=== PATIENT | male | born 1975 | race Caucasian/White ===

== ENCOUNTER 2017-08-07 22:33 | Inpatient (IN) | payer OTHER ==
[~2017-08-07] VITALS: Ht 188 cm; Wt 104.6 kg
[2017-08-07] MEDS ORDERED: ONDANSETRON HCL 4 MG/2 ML VIAL ONE (22:40)
[2017-08-07] MEDS ORDERED: MORPHINE SULFATE 8 MG/ML INJ ONE (22:40)
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
[2017-08-07] MEDS ORDERED: IOHEXOL 350 MG/ML 10 ML VIAL (for RAD DIAG) IVCONTRAST ONE (22:58)
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
[2017-08-07 23:02] LABS: I-STAT POTASSIUM 4.1 MMOL/L (3.5-4.9)
[2017-08-07 23:03] LABS: AUTOMATED NEUTROPHIL # 5.1 TH/MM3 (1.8-7.7); BASOPHIL % 0.2 % (0.0-2.0); EOSINOPHIL # 0.1 TH/MM3 (0-0.4); EOSINOPHIL % 0.8 % (0.0-4.0); HEMATOCRIT 43.9 % (39.0-51.0); LYMPH % 47.4 % (9.0-44.0); LYMPHOCYTE # 5.4 TH/MM3 (1.0-4.8); MEAN CELL VOLUME 91.4 FL (80.0-100.0); MEAN CORPUSCULAR HEMOGLOBIN 31.5 PG (27.0-34.0); MEAN CORPUSCULAR HGB CONC 34.5 % (32.0-36.0); MONO % 6.6 % (0.0-8.0); PLATELET COUNT 225 TH/MM3 (150-450); RED BLOOD COUNT 4.81 MIL/MM3 (4.50-5.90); RED CELL DISTRIBUTION WIDTH 13.9 % (11.6-17.2); WHITE BLOOD COUNT 11.4 TH/MM3 (4.0-11.0)
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
[2017-08-07 23:08] LABS: HEMO FLAGS AUTO DIFF
[2017-08-07 23:16] LABS: APTT (PATIENT) 22.8 SEC (24.3-30.1); INTERNATIONAL NORMALIZED RATIO 0.9 RATIO; PROTHROMBIN TIME - PATIENT 10.4 SEC (9.8-11.6)
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
[2017-08-07 23:30] VITALS: BP 120/72; PULSE 99; RESP 26; TEMP 97.7; O2SAT 97
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
[2017-08-07 23:43] LABS: BASOPHILS 1 % (0-2); EOSINOPHILS 1 % (0-4); METAMYELOCYTES 1 % (0-1); POLYS (SEG NEUTROPHILS) 52 % (16-70); WBC DIFF SAMPLE 100
[2017-08-07 23:44] LABS: PLATELET ESTIMATE SMEAR NORMAL (NORMAL); PLATELET MORPHOLOGY NORMAL (NORMAL); SCAN/DIFF FINAL DIFF MANUAL
[2017-08-07] MEDS ORDERED: SODIUM CHLORIDE 0.9% FLUSH 10 ML FLUSH IV FLUSH PRN (23:45)
[2017-08-07] MEDS ORDERED: Post-op Orders (for Pharmacy) MISC XX ONE (23:45)
[2017-08-07] MEDS ORDERED: NALOXONE HCL 0.4 MG/ML AMP IV PUSH PRN (23:45)
[2017-08-07] MEDS: SODIUM CHLOR 0.9% 1000 ML INJ 1,000 ML IV SCH (23:55)
[2017-08-07] MEDS: HYDROmorphone HCL PF 0.5 MG/0.5 ML SYRINGE IV PRN (23:58)
[2017-08-08] VITALS (11 sets, daily range): BP systolic 106–128; BP diastolic 60–73; PULSE 95–122; RESP 13–27; TEMP 97–100; O2SAT 94–100
[2017-08-08 00:08] LABS: HEMATOCRIT 40.6 % (39.0-51.0); REVIEW FLAG FINAL
[2017-08-08] MEDS: ONDANSETRON HCL 4 MG/2 ML VIAL IV PUSH PRN ×3 (01:42→18:09)
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
[2017-08-08 03:33] LABS: AUTOMATED NEUTROPHIL # 20.9 TH/MM3 (1.8-7.7); BASOPHIL % 0.1 % (0.0-2.0); HEMATOCRIT 45.8 % (39.0-51.0); LYMPHOCYTE # 1.5 TH/MM3 (1.0-4.8); MEAN CELL VOLUME 91.2 FL (80.0-100.0); MEAN CORPUSCULAR HEMOGLOBIN 30.6 PG (27.0-34.0); MEAN CORPUSCULAR HGB CONC 33.5 % (32.0-36.0); MONO % 12.6 % (0.0-8.0); NEUT % 81.3 % (16.0-70.0); PLATELET COUNT 211 TH/MM3 (150-450); RED BLOOD COUNT 5.01 MIL/MM3 (4.50-5.90); RED CELL DISTRIBUTION WIDTH 14.3 % (11.6-17.2); WHITE BLOOD COUNT 25.7 TH/MM3 (4.0-11.0)
[2017-08-08 04:06] LABS: BICARBONATE 21.7 MEQ/L (21.0-32.0); POTASSIUM 4.7 MEQ/L (3.5-5.1)
[2017-08-08 04:08] LABS: INDIRECT BILIRUBIN 0.2 MG/DL (0.0-0.8); TOTAL BILIRUBIN ADULT 0.3 MG/DL (0.2-1.0)
[2017-08-08 04:28] LABS: HEMO FLAGS AUTO DIFF
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
[2017-08-08 05:26] LABS: BANDS 6 % (0-6); NEUTROPHIL # MANUAL DIFF 21.8 TH/MM3 (1.8-7.7); POLYS (SEG NEUTROPHILS) 79 % (16-70); WBC DIFF SAMPLE 100
[2017-08-08 05:27] LABS: PLATELET ESTIMATE SMEAR NORMAL (NORMAL); PLATELET MORPHOLOGY NORMAL (NORMAL); SCAN/DIFF FINAL DIFF MANUAL; TEARDROP RBCS 1+ (NORMAL)
[2017-08-08] MEDS: HYDROmorphone HCL PF 0.5 MG/0.5 ML SYRINGE IV PRN ×3 (05:43→15:33)
--- NOTE | 2017-08-08 07:56 | RADRPT ---
EXAM DATE/TIME: 08/08/2017 08:20 [facility] COMPARISON: CHEST SINGLE AP, August 07, 2017, 22:30. INDICATIONS : Evaluate for pneumothorax MEDICAL HISTORY : None. SURGICAL HISTORY : None. ENCOUNTER: Subsequent ACUITY: 2 days PAIN SCORE: Non-responsive. LOCATION: chest FINDINGS: The heart size is normal. There is increased density in the right perihilar region and at the medial left base. There is elevation of the right hemidiaphragm. A pneumothorax is not seen. CONCLUSION: Right perihilar and left medial base consolidation or atelectasis. Ty Kidd MD on August 08, 2017 at 7:53 Board Certified Radiologist. This report was verified electronically.
[2017-08-08] MEDS: SODIUM CHLORIDE 0.9% FLUSH 10 ML FLUSH IV FLUSH SCH ×2 (08:20→20:54)
[2017-08-08] MEDS: LIDOCAINE HCL 5% PATCH T-DERMAL SCH (08:26)
[2017-08-08] MEDS ORDERED: FAMOTIDINE 20 MG/2 ML VIAL IV PUSH SCH (09:00)
[2017-08-08] MEDS ORDERED: LACTULOSE SYRUP 20 GM/30 ML CUP PO PRN (10:00)
[2017-08-08] MEDS ORDERED: LIDOCAINE HCL 1% 50 ML VIAL INFIL ONE (10:00)
[2017-08-08] MEDS: oxyCODONE/ACETAMINOPHEN 10 MG/325 MG TAB PO PRN ×3 (12:35→22:05)
[2017-08-08 12:42] LABS: HEMATOCRIT 44.9 % (39.0-51.0); REVIEW FLAG FINAL
--- NOTE | 2017-08-08 12:47 | PD.PROCEDR ---
Procedure Note Procedure 08/08/2017 @ 1100 The patient suffered a laceration that required repair. It is approx 8 cm in length to his RIGHT scalp. After evaluating the area, the wound was copiously irrigated with normal saline. The area of the laceration was prepped with Betadine and sterilely draped. The laceration was infiltrated with 1% Lidocaine. The wound was explored for foreign body, tendon injury, or neurovascular injury. The wound was then cleansed and irrigated a second time. Trying to maintain a sterile field and using a sterile staple gun, 6 braxton were placed to approximate the wound edges. The patient tolerated the procedure well and no complications occurred. A sterile 4x4 dressing was applied by RN. Recommendation: Daily wound checks and staple removal in 7-10 days. LACERATION LOCATION: Right scalp LENGTH: approx 8 cm NUMBER OF BRAXTON: 6 Karol Corado Aug 08, 2017 12:47
--- NOTE | 2017-08-08 13:43 | HHI.CCPN ---
Subjective Brief History Contusion and laceration of the right kidney upper pole with retroperitoneal bleeding but no active bleeding at this time. Right lobe liver contusion with some perihepatic blood, and serial rib fractures with a very tiny pneumothorax which is sort of in the folds of the pleura as the hilum of the bronchi comes out of the mediastinum. The patient will be now placed in the ICU. Majority of the patient's will not require any further intervention and the the bleeding and are at peritoneal space will be self-contained while minority of patients may need some sort of endovascular embolization our intervention 24 Hour Review/Hospital Course Patient has been stable since the arrival Bruising over the right orbital rim is decreased Neurologic the patient is fully intact Placed several braxton and the laceration of the posterior scalp Bilateral breath sounds and no increase in the mediastinal or pleural air so for all practical purposes this is sealed of Abdomen is soft active bowel sounds Will start patient on diet Stop serial H&H Objective Vital Signs Date Time Temp Pulse Resp B/P (MAP) Pulse Ox O2 Delivery O2 Flow Rate FiO2 08/08/17 06:00 110 08/08/17 03:47 97.9 24 118/66 (83) 100 08/08/17 00:00 Non-Rebreather 7.00 Intake and Output 08/08/17 08/08/17 08/09/17 08:00 16:00 00:00 Output Total 1500 ml Balance -1500 ml Result Diagram: 08/08/17 1203 08/08/17 0322 Imaging Last 24 hours Impressions Chest X-Ray 08/08/17 0000 Signed Impressions: Service Date/Time: Tuesday, August 08, 2017 08:20 - CONCLUSION: Right perihilar and left medial base consolidation or atelectasis. Ty Kidd MD Thoracic Spine CT 08/07/172245 Signed Impressions: Service Date/Time: Monday, August 07, 2017 22:58 - CONCLUSION: No acute fracture or malalignment. Louis Quan MD Pelvis X-Ray 08/07/172245 Signed Impressions: Service Date/Time: Monday, August 07, 2017 22:30 - CONCLUSION: Negative trauma study. Louis Quan MD Maxillofacial CT 08/07/172245 Signed Impressions: Service Date/Time: Monday, August 07, 2017 22:53 - CONCLUSION: Comminuted fracture of the nasal bone. Louis Quan MD Lumbar Spine CT 08/07/172245 Signed Impressions: Service Date/Time: Monday, August 07, 2017 22:58 - CONCLUSION: No acute fracture or malalignment. Louis Quan MD Chest X-Ray 08/07/172245 Signed Impressions: Service Date/Time: Monday, August 07, 2017 22:30 - CONCLUSION: Negative trauma study. Louis Quan MD Chest CT 08/07/172245 Signed Impressions: Service Date/Time: Monday, August 07, 2017 22:58 - CONCLUSION: 1. Linear gas collection posterior to the heart most consistent with a pneumothorax. 2. Evidence of pneumomediastinum. 3. Posttraumatic pneumatocele in the right lower lobe as well as apparent atelectasis or lung contusion. 4. Multiple right rib fractures. 5. Please see abdomen CT about further information on right renal injury. Louis Quan MD Cervical Spine CT 08/07/172245 Signed Impressions: Service Date/Time: Monday, August 07, 2017 22:53 - CONCLUSION: Negative trauma CT. Louis Quan MD Abdomen/Pelvis CT 08/07/172245 Signed Impressions: Service Date/Time: Monday, August 07, 2017 22:58 - CONCLUSION: 1. Acute injury to the right kidney with areas of non-enhancement involving the upper pole and moderate surrounding hematoma with attenuation of the renal vein. 2. Subtle low attenuation areas involving the inferior margin of the liver which could represent contusion. There is a small amount of ascites. 3. Mild hemorrhage in the right upper retroperitoneum. 4. Fractures the right posterior seventh through 11th ribs with tiny apparent traumatic pneumatocele in the right lower lobe an abnormal linear gas collection posterior to the heart. Please see chest CT for further details. Louis Quan MD Exam [employer] Neurologically fully intact awake alert and oriented Hemodynamic/Cardiac Hemodynamically stable Pulmonary/Respiratory Bilateral breath sounds patient taking good breaths despite repeat fractures Abdomen/GI Nutrition Abdomen soft active bowel sounds Renal/I&O Preserve renal function Hematologic Hemodynamically patient is stable and hematologically stable Hemoglobin remains stable and there is no further bleeding from the retroperitoneum or the upper pole of the right kidney Assessment and Plan Attestation Critical care 40 minutes Shan Garza MD Aug 08, 2017 13:43
[2017-08-08] MEDS: SODIUM CHLOR 0.9% 1000 ML INJ 1,000 ML IV SCH ×2 (13:48→19:44)
[2017-08-08] MEDS: METHOCARBAMOL 500 MG TAB PO SCH ×2 (13:48→20:50)
[2017-08-08] MEDS: LACTULOSE SYRUP 20 GM/30 ML CUP PO SCH (15:30)
[2017-08-08] MEDS: MAGNESIUM HYDROXIDE SUSP 30 ML CUP PO SCH (20:49)
[2017-08-08] MEDS: DOCUSATE SODIUM 50 MG/SENNA 8.6 MG TAB PO SCH (20:49)
[2017-08-08] MEDS: FAMOTIDINE 20 MG TAB PO SCH (20:49)
[2017-08-08] MEDS: REMOVE OLD PATCH-LIDOCAINE T-DERMAL SCH (21:00)
[2017-08-09] VITALS (14 sets, daily range): BP systolic 119–139; BP diastolic 60–81; PULSE 111–139; RESP 18–32; TEMP 96.7–99.6; O2SAT 88–99
[2017-08-09] MEDS: HYDROmorphone HCL PF 0.5 MG/0.5 ML SYRINGE IV PRN ×5 (03:20→20:16)
[2017-08-09] MEDS: METHOCARBAMOL 500 MG TAB PO SCH ×4 (05:25→20:15)
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
[2017-08-09] MEDS: SODIUM CHLOR 0.9% 1000 ML INJ 1,000 ML IV SCH ×2 (05:44→15:44)
--- NOTE | 2017-08-09 06:11 | RADRPT ---
EXAM DATE/TIME: 08/09/2017 05:53 [facility] COMPARISON: CHEST SINGLE AP, August 08, 2017, 8:20. INDICATIONS : Shortness of breath MEDICAL HISTORY : Ruptured Kidney SURGICAL HISTORY : None. ENCOUNTER: Initial ACUITY: 1 day PAIN SCORE: 8/10 LOCATION: Bilateral chest FINDINGS: A single view of the chest demonstrates worsening pleural-parenchymal density in the right. Left basi lar patchy densities. Multiple right-sided rib fractures. The cardiomediastinal contours are unremar kable. CONCLUSION: 1. Worsening bibasilar disease and pleural-parenchymal density right lower lung. Haseeb White MD on August 09, 2017 at 6:07 Board Certified Radiologist. This report was verified electronically.
[2017-08-09 07:04] LABS: AUTOMATED NEUTROPHIL # 13.2 TH/MM3 (1.8-7.7); BASOPHIL % 0.2 % (0.0-2.0); HEMATOCRIT 38.1 % (39.0-51.0); HEMO FLAGS DIFF FINAL; LYMPH % 7.3 % (9.0-44.0); LYMPHOCYTE # 1.2 TH/MM3 (1.0-4.8); MEAN CELL VOLUME 90.8 FL (80.0-100.0); MEAN CORPUSCULAR HEMOGLOBIN 30.6 PG (27.0-34.0); MEAN CORPUSCULAR HGB CONC 33.7 % (32.0-36.0); MONO % 11.3 % (0.0-8.0); NEUT % 81.2 % (16.0-70.0); PLATELET COUNT 146 TH/MM3 (150-450); RED BLOOD COUNT 4.19 MIL/MM3 (4.50-5.90); RED CELL DISTRIBUTION WIDTH 14.3 % (11.6-17.2); WHITE BLOOD COUNT 16.3 TH/MM3 (4.0-11.0)
[2017-08-09 07:39] LABS: ALKALINE PHOSPHATASE 66 U/L (45-117); ALT (GPT) 563 U/L (12-78); ANION GAP 5 MEQ/L (5-15); AST (GOT) 421 U/L (15-37); BICARBONATE 26.9 MEQ/L (21.0-32.0); BLOOD UREA NITROGEN 24 MG/DL (7-18); CHLORIDE 106 MEQ/L (98-107); GLOMERULAR FILTRATION RATE 55 ML/MIN (>89); POTASSIUM 4.5 MEQ/L (3.5-5.1); SODIUM (NA) 138 MEQ/L (136-145); TOTAL BILIRUBIN ADULT 0.7 MG/DL (0.2-1.0)
[2017-08-09] MEDS ORDERED: HYDROmorphone HCL PF 0.5 MG/0.5 ML SYRINGE IV PRN (08:00)
[2017-08-09] MEDS: RESP: ALBUTEROL 2.5 MG/IPRATROPIUM 0.5 MG NEB (SCH) NEB ×4 (08:26→20:00)
[2017-08-09] MEDS: oxyCODONE/ACETAMINOPHEN 10 MG/325 MG TAB PO PRN ×2 (08:27→22:30)
[2017-08-09] MEDS: FAMOTIDINE 20 MG TAB PO SCH ×2 (08:27→20:16)
[2017-08-09] MEDS: DOCUSATE SODIUM 50 MG/SENNA 8.6 MG TAB PO SCH ×2 (08:27→20:16)
[2017-08-09] MEDS: LACTULOSE SYRUP 20 GM/30 ML CUP PO SCH (08:28)
[2017-08-09] MEDS: SODIUM CHLORIDE 0.9% FLUSH 10 ML FLUSH IV FLUSH SCH ×2 (08:28→20:17)
[2017-08-09] MEDS: LIDOCAINE HCL 5% PATCH T-DERMAL SCH (08:28)
[2017-08-09] MEDS ORDERED: RESP: ALBUTEROL 2.5 MG/IPRATROPIUM 0.5 MG NEB (PRN) NEB (09:00)
[2017-08-09] MEDS: GABAPENTIN 300 MG CAP PO SCH ×3 (10:36→20:15)
[2017-08-09] MEDS ORDERED: IOHEXOL 350 MG/ML 10 ML VIAL (for RAD DIAG) IVCONTRAST ONE (12:20)
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
--- NOTE | 2017-08-09 12:41 | RADRPT ---
EXAM DATE/TIME: 08/09/2017 12:14 [facility] COMPARISON: CT ABDOMEN & PELVIS W CONTRAST, August 07, 2017, 22:58. INDICATIONS : Follow up right kidney trauma. IV CONTRAST: 75 cc Omnipaque 350 (iohexol) IV ; Cumulative dose for multiple exams. ORAL CONTRAST: No oral contrast ingested. RADIATION DOSE: 16.92 CTDIvol (mGy) MEDICAL HISTORY : Hernia, hiatal. SURGICAL HISTORY : None. ENCOUNTER: Initial ACUITY: 1 day PAIN SCALE: 5/10 LOCATION: Right TECHNIQUE: Volumetric scanning of the abdomen and pelvis was performed. Using automated exposure control and ad justment of the mA and/or kV according to patient size, radiation dose was kept as low as reasonably achievable to obtain optimal diagnostic quality images. DICOM format image data is available electro nically for review and comparison. FINDINGS: The study is degraded by streak and motion artifact. LOWER LUNGS: There is a new small to moderate right pleural effusion with consolidation in the right lower lobe. T here is mild consolidation in the left medial lower lobe with small effusion. LIVER: The liver remains normal in size and shape. Visualization is suboptimal secondary to streak leonardo fact there is a persistent area of decreased attenuation involving the posterior inferior right lobe adjacent to the right kidney. There is no ductal dilatation. There is vicarious excretion of contrast in the gallbladder. SPLEEN: Normal size without lesion. PANCREAS: Within normal limits. KIDNEYS: The left kidney remains unremarkable. The right kidney remains abnormal non-enhancement of portions o f the medial upper pole. The surrounding hematoma has decreased in size. There is no high density ext ravasation identified. ADRENAL GLANDS: Within normal limits. VASCULAR: There is no aortic aneurysm. BOWEL/MESENTERY: The stomach, small bowel, and colon demonstrate no acute abnormality. There is no free intraperitone al air or fluid. ABDOMINAL WALL: Within normal limits. RETROPERITONEUM: There is no lymphadenopathy. BLADDER: No wall thickening or mass. Interval placement of Ashley catheter. REPRODUCTIVE: Within normal limits. INGUINAL: There is no lymphadenopathy or hernia. MUSCULOSKELETAL: Multiple right rib fractures are again identified. CONCLUSION: 1. Suboptimal study secondary to motion and streak artifact. 2. The right kidney remains abnormal in appearance with no enhancement of portions of the upper pole again noted. The surrounding hematoma has decreased in size. 3. Subtle ill-defined low-attenuation area again noted involving the posterior inferior right lobe of the liver adjacent to the kidney. This remains most characteristic of an area of contusion. 4. New bilateral pleural effusions and consolidation in the lower lobes right greater than left. 5. Multiple right rib fractures again noted. Louis Quan MD on August 09, 2017 at 12:33 Board Certified Radiologist. This report was verified electronically.
[2017-08-09] MEDS ORDERED: LIDOCAINE HCL 1% 20 ML VIAL INFIL ONE (13:00)
--- NOTE | 2017-08-09 15:54 | RADRPT ---
EXAM DATE/TIME: 08/09/2017 15:58 [facility] COMPARISON: CHEST SINGLE AP, August 09, 2017, 5:53. INDICATIONS : Chest tube placement, right. MEDICAL HISTORY : Hiatal hernia. SURGICAL HISTORY : None. ENCOUNTER: Initial ACUITY: 1 day PAIN SCORE: Non-responsive. LOCATION: Right chest FINDINGS: A single portable frontal view of the chest shows motion artifact. There has been interval placement of a right thoracostomy tube. There has been resolution of the right-sided pleural effusion. Consolid ation remains within the left lung base. No pneumothoraces observed. The heart is at the upper limits of normal in terms of size. Right posterior inferior fractures. CONCLUSION: 1. Right-sided chest tube placement with resolution of the right effusion. Tylor Weeks Jr., MD on August 09, 2017 at 15:51 Board Certified Radiologist. This report was verified electronically.
[2017-08-09] MEDS ORDERED: KETOROLAC TROMETHAMINE 60 MG/2 ML (IM) VIAL IM SCH (18:00)
[2017-08-09] MEDS: KETOROLAC TROMETHAMINE 30 MG/ML (IVP) VIAL IV PUSH SCH (18:19)
--- NOTE | 2017-08-09 18:35 | HHI.PR ---
Subjective Subjective Notes Increase SOB with mild respiratory distress today- [facility] Stat CT chest showed moderate sized RIGHT hemothorax- Transferred to [facility] S/P RIGHT CT placement with 700mL retained blood removed Respiratory status improved Objective Vitals/I&O Vital Signs Date Time Temp Pulse Resp B/P (MAP) Pulse Ox O2 Delivery O2 Flow Rate FiO2 08/09/17 18:00 117 08/09/17 15:47 99.3 32 139/72 (94) 97 08/09/17 12:41 Non-Rebreather 15.00 Labs Laboratory Tests Test 08/09/17 06:20 White Blood Count 16.3 Red Blood Count 4.19 Hemoglobin 12.8 Hematocrit 38.1 Mean Corpuscular Volume 90.8 Mean Corpuscular Hemoglobin 30.6 Mean Corpuscular Hemoglobin Concent 33.7 Red Cell Distribution Width 14.3 Platelet Count 146 Mean Platelet Volume 8.4 Neutrophils (%) (Auto) 81.2 Lymphocytes (%) (Auto) 7.3 Monocytes (%) (Auto) 11.3 Eosinophils (%) (Auto) 0.0 Basophils (%) (Auto) 0.2 Neutrophils # (Auto) 13.2 Lymphocytes # (Auto) 1.2 Monocytes # (Auto) 1.8 Eosinophils # (Auto) 0.0 Basophils # (Auto) 0.0 CBC Comment DIFF FINAL Differential Comment Blood Urea Nitrogen 24 Creatinine 1.42 Random Glucose 151 Total Protein 5.8 Albumin 2.6 Calcium Level 8.0 Alkaline Phosphatase 66 Aspartate Amino Transf (AST/SGOT) 421 Alanine Aminotransferase (ALT/SGPT) 563 Total Bilirubin 0.7 Sodium Level 138 Potassium Level 4.5 Chloride Level 106 Carbon Dioxide Level 26.9 Anion Gap 5 Estimat Glomerular Filtration Rate 55 Narrative Exam GENERAL: 41 year old adult male lying in bed. SKIN: Warm and dry. Facial abrasions noted. HEAD: Normocephalic. EYES: Pupils equal and round. No scleral icterus. No injection or drainage. ENT: No nasal bleeding or discharge. Mucous membranes pink and moist. NECK: Trachea midline. No JVD. CARDIOVASCULAR: Sinus tachycardia. RESPIRATORY: No accessory muscle use. Clear and diminished to auscultation. RIGHT lateral CT in place secured to pleura vac on -20cm suction. No air leak. Serosanguineous drainage noted in collection chamber. GASTROINTESTINAL: Abdomen soft, tender to palpation in RUQ, nondistended. + BS MUSCULOSKELETAL: Extremities without cyanosis, or edema. MAEW, + perfused NEUROLOGICAL: Awake and alert. Normal speech. A/P Assessment and Plan INJURIES: Scalp lac (braxton) Nasal bone fx Pneumomediastinum RIGHT rib fx (7-11) w/ tiny PTX RIGHT lower lobe pneumatocele BILAT lung contusions RIGHT kidney fx w/ hemorrhage LIVER contusion 08/09: RIGHT CT placed for JACKIE (-700mL) Diet: Regular Pulm: IS, EZ-PAP with nebs, Acapella Pain: Percocet. Dilaudid IV. Robaxin. Lidoderm patch, Toradol IV Activity: OOB. PT ordered GI: Pepcid PO Bowel: Lamar-colace 2 tabs, MOM. Lactulose. LBM 0 DVT: SCD's. RIGHT rib fx w/small PTX, BILAT lung contusions, RIGHT JACKIE S/P RIGHT CT placed for JACKIE (-700mL) No PTX NRB. Wean O2 as tolerated RIGHT CT @ -20cm suction Daily CT dressing changes Pain control Pulmonary toileting ABG in AM CXR in AM RIGHT kidney fx w/ hemorrhage, LIVER contusion Supportive care Monitor H&H 08/09: CT abdomen- kidney hematoma smaller, liver contusion stable Pain control Bowel regimen Plan of care discussed with patient at bedside. Case management consulted to assist with discharge planning. Luis M Belle Aug 09, 2017 18:35
[2017-08-09] MEDS: MAGNESIUM HYDROXIDE SUSP 30 ML CUP PO SCH (20:17)
[2017-08-09] MEDS: REMOVE OLD PATCH-LIDOCAINE T-DERMAL SCH (21:00)
[2017-08-10] VITALS (15 sets, daily range): BP systolic 110–143; BP diastolic 56–75; PULSE 102–118; RESP 13–22; TEMP 97.8–100.6; O2SAT 94–100
[2017-08-10] MEDS: KETOROLAC TROMETHAMINE 30 MG/ML (IVP) VIAL IV PUSH SCH ×5 (00:24→23:39)
[2017-08-10] MEDS: RESP: ALBUTEROL 2.5 MG/IPRATROPIUM 0.5 MG NEB (SCH) NEB ×7 (00:31→23:44)
[2017-08-10] MEDS: SODIUM CHLOR 0.9% 1000 ML INJ 1,000 ML IV SCH ×3 (01:44→20:52)
[2017-08-10 05:17] LABS: BLOOD GAS BASE EXCESS 4.2 mmol/L (-2-2); BLOOD GAS CARBOXYHEMOGLOBIN 1.2 % (0-4); BLOOD GAS HCO3 29 mmol/L (22-26); BLOOD GAS METHEMOGLOBIN 0.9 % (0-2); BLOOD GAS O2 HGB SATURATION 98 % (90-100); BLOOD GAS OXYGEN CONTENT 15.7 Vol % (12.0-20.0); BLOOD GAS PCO2 46 mmHg (38-42); BLOOD GAS PO2 169 mmHg (61-120); BLOOD GAS TOTAL HGB 11.2 G/DL (12.0-16.0); CRITICAL VALUE NO; DRAW SITE RT RADIAL; FIO2 100 %; LITER FLOW 15 L/M; NUMBER OF ARTERIAL PUNCTURES 1; STAT NO; TEMP CORR TO 98.6; ULNAR PULSE PRESENT
[2017-08-10] MEDS: GABAPENTIN 300 MG CAP PO SCH ×3 (05:27→20:51)
[2017-08-10] MEDS: METHOCARBAMOL 500 MG TAB PO SCH (05:27)
[2017-08-10] MEDS: oxyCODONE/ACETAMINOPHEN 5 MG/325 MG TAB PO PRN ×2 (05:28→13:49)
--- NOTE | 2017-08-10 06:38 | RADRPT ---
EXAM DATE/TIME: 08/10/2017 06:07 [facility] COMPARISON: CHEST SINGLE AP, August 09, 2017, 15:58. INDICATIONS : Short of breath. MEDICAL HISTORY : Hiatal hernia. SURGICAL HISTORY : None. ENCOUNTER: Subsequent ACUITY: 4 - 6 days PAIN SCORE: Non-responsive. LOCATION: Bilateral chest FINDINGS: A single view of the chest demonstrates right-sided chest tube and small right apical pneumothorax. H eart enlarged. Minimal left retrocardiac density. The cardiomediastinal contours are unremarkable. Osseous structures are intact. CONCLUSION: 1. Right-sided chest tube and small right apical pneumothorax, not significantly changed. 2. Minimal left retrocardiac density likely atelectasis. Haseeb White MD on August 10, 2017 at 6:35 Board Certified Radiologist. This report was verified electronically.
[2017-08-10 07:22] LABS: AUTOMATED NEUTROPHIL # 9.8 TH/MM3 (1.8-7.7); BASOPHIL % 0.2 % (0.0-2.0); EOSINOPHIL # 0.1 TH/MM3 (0-0.4); EOSINOPHIL % 0.7 % (0.0-4.0); HEMO FLAGS DIFF FINAL; LYMPH % 8.1 % (9.0-44.0); MEAN CELL VOLUME 91.3 FL (80.0-100.0); MEAN CORPUSCULAR HEMOGLOBIN 31.1 PG (27.0-34.0); MONO % 10.1 % (0.0-8.0); NEUT % 80.9 % (16.0-70.0); PLATELET COUNT 131 TH/MM3 (150-450); WHITE BLOOD COUNT 12.2 TH/MM3 (4.0-11.0)
[2017-08-10 07:44] LABS: ANION GAP 6 MEQ/L (5-15); AST (GOT) 236 U/L (15-37); BICARBONATE 28.8 MEQ/L (21.0-32.0); BLOOD UREA NITROGEN 28 MG/DL (7-18); CHLORIDE 101 MEQ/L (98-107); GLOMERULAR FILTRATION RATE 52 ML/MIN (>89); POTASSIUM 4.6 MEQ/L (3.5-5.1); SODIUM (NA) 136 MEQ/L (136-145)
[2017-08-10 07:48] LABS: ALKALINE PHOSPHATASE 66 U/L (45-117); ALT (GPT) 365 U/L (12-78); TOTAL BILIRUBIN ADULT 0.7 MG/DL (0.2-1.0)
[2017-08-10] MEDS: LACTULOSE SYRUP 20 GM/30 ML CUP PO SCH ×2 (09:00→09:43)
[2017-08-10] MEDS: SODIUM CHLORIDE 0.9% FLUSH 10 ML FLUSH IV FLUSH SCH ×2 (09:00→21:44)
[2017-08-10] MEDS: DOCUSATE SODIUM 50 MG/SENNA 8.6 MG TAB PO SCH ×2 (09:43→20:51)
[2017-08-10] MEDS: LIDOCAINE HCL 5% PATCH T-DERMAL SCH (09:44)
[2017-08-10] MEDS: ENOXAPARIN SODIUM 40 MG/0.4 ML SYRINGE SQ SCH (10:39)
--- NOTE | 2017-08-10 10:45 | HHI.CCPN ---
Subjective Brief History Contusion and laceration of the right kidney upper pole with retroperitoneal bleeding but no active bleeding at this time. Right lobe liver contusion with some perihepatic blood, and serial rib fractures with a very tiny pneumothorax which is sort of in the folds of the pleura as the hilum of the bronchi comes out of the mediastinum. The patient will be now placed in the ICU. Majority of the patient's will not require any further intervention and the the bleeding and are at peritoneal space will be self-contained while minority of patients may need some sort of endovascular embolization our intervention 24 Hour Review/Hospital Course Patient has been stable since the arrival Bruising over the right orbital rim is decreased Neurologic the patient is fully intact Placed several braxton and the laceration of the posterior scalp Bilateral breath sounds and no increase in the mediastinal or pleural air so for all practical purposes this is sealed of Abdomen is soft active bowel sounds Will start patient on diet Stop serial H&H 08/10/17 Patient transferred yesterday back to the ICU because of the severe pain and inability of floor to take care of him Patient is awake alert and oriented Right hemothorax had increased over the few days the patient will see her in the hospital and therefore right chest tube was placed and about 700 cc old blood obtained This improved patient's pulmonary function is breathing much easier at this point Objective Vital Signs Date Time Temp Pulse Resp B/P (MAP) Pulse Ox O2 Delivery O2 Flow Rate FiO2 08/10/17 09:15 97 Nasal Cannula 3.00 08/10/17 06:00 110 08/10/17 04:00 100.3 14 117/56 (76) 08/09/17 19:00 100 Intake and Output 08/10/17 08/10/17 08/11/17 08:00 16:00 00:00 Intake Total 1160 ml Output Total 580 ml Balance 580 ml Result Diagram: 08/10/17 0640 08/10/17 0640 Other Results Laboratory Tests Test 08/10/17 05:00 Blood Gas Puncture Site RT RADIAL Blood Gas Patient Temperature 98.6 Blood Gas HCO3 29 mmol/L (22-26) Blood Gas Base Excess 4.2 mmol/L (-2-2) Blood Gas Oxygen Saturation 98 % (90-100) Arterial Blood pH 7.41 (7.380-7.420) Arterial Blood Partial Pressure CO2 46 mmHg (38-42) Arterial Blood Partial Pressure O2 169 mmHg (61-120) Arterial Blood Oxygen Content 15.7 Vol % (12.0-20.0) Arterial Blood Carboxyhemoglobin 1.2 % (0-4) Arterial Blood Methemoglobin 0.9 % (0-2) Blood Gas Hemoglobin 11.2 G/DL (12.0-16.0) Oxygen Delivery Device Non-Rebreathing Mask Blood Gas Liter Flow 15 L/M Blood Gas Inspired Oxygen 100 % Imaging Last 24 hours Impressions Chest X-Ray 08/10/17 0600 Signed Impressions: Service Date/Time: Thursday, August 10, 2017 06:07 - CONCLUSION: 1. Right-sided chest tube and small right apical pneumothorax, not significantly changed. 2. Minimal left retrocardiac density likely atelectasis. 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 Analgesia under control with modifications of medications Patient currently on Percocet/Dilauded/Toradol and Neurontin Noncompliant doesn't want to get out of bed and work with physical and occupational therapy Hemodynamic/Cardiac Hemodynamically stable Hemoglobin stable Pulmonary/Respiratory Bilateral good breath sounds after chest tube placement 700 cc of old blood in another 300 cc of serosanguineous fluid over last 24 hours Right lung fully expanded Patient feels much better Need to be out of bed and will transfer out of ICU Abdomen/GI Nutrition Abdomen soft tolerates diet well Renal/I&O Good urine output preserved renal function despite renal injury At this point there is nothing to add to care of the kidney. Some of the function and anatomic resolution will occur in the upper pole of the right kidney with time and part of it will remain nonfunctional Creatinine and BUN on the way down and stabilizing Assessment and Plan Attestation Transfer patient to floor Aggressive physical therapy and ambulation Will be able to remove chest tube in next few days once the drainage is decreased At this point pleuritis very inflamed and hence the increased serosanguineous drainage Shan Garza MD Aug 10, 2017 10:45
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
[2017-08-10] MEDS: HYDROmorphone HCL PF 0.5 MG/0.5 ML SYRINGE IV PRN ×3 (12:33→20:54)
[2017-08-10] MEDS: MAGNESIUM HYDROXIDE SUSP 30 ML CUP PO SCH (20:51)
[2017-08-10] MEDS: REMOVE OLD PATCH-LIDOCAINE T-DERMAL SCH (20:52)
[2017-08-10] MEDS: oxyCODONE/ACETAMINOPHEN 10 MG/325 MG TAB PO PRN (23:39)
[2017-08-11] VITALS (12 sets, daily range): BP systolic 102–133; BP diastolic 56–69; PULSE 94–116; RESP 16–20; TEMP 96.6–99.1; O2SAT 95–100
[2017-08-11] MEDS: HYDROmorphone HCL PF 0.5 MG/0.5 ML SYRINGE IV PRN ×2 (00:24→18:27)
[2017-08-11] MEDS: RESP: ALBUTEROL 2.5 MG/IPRATROPIUM 0.5 MG NEB (SCH) NEB ×4 (03:22→18:37)
[2017-08-11 05:35] LABS: AUTOMATED NEUTROPHIL # 7.2 TH/MM3 (1.8-7.7); BASOPHIL # 0.1 TH/MM3 (0-0.2); BASOPHIL % 1.2 % (0.0-2.0); EOSINOPHIL # 0.2 TH/MM3 (0-0.4); EOSINOPHIL % 1.8 % (0.0-4.0); HEMATOCRIT 29.1 % (39.0-51.0); HEMO FLAGS DIFF FINAL; LYMPH % 14.9 % (9.0-44.0); LYMPHOCYTE # 1.5 TH/MM3 (1.0-4.8); MEAN CELL VOLUME 91.5 FL (80.0-100.0); MEAN CORPUSCULAR HEMOGLOBIN 31.7 PG (27.0-34.0); MEAN CORPUSCULAR HGB CONC 34.7 % (32.0-36.0); MONO % 8.4 % (0.0-8.0); NEUT % 73.7 % (16.0-70.0); PLATELET COUNT 142 TH/MM3 (150-450); RED BLOOD COUNT 3.18 MIL/MM3 (4.50-5.90); RED CELL DISTRIBUTION WIDTH 13.9 % (11.6-17.2); WHITE BLOOD COUNT 9.8 TH/MM3 (4.0-11.0)
[2017-08-11 05:49] LABS: ALT (GPT) 256 U/L (12-78); ANION GAP 5 MEQ/L (5-15); AST (GOT) 144 U/L (15-37); BICARBONATE 29.3 MEQ/L (21.0-32.0); BLOOD UREA NITROGEN 25 MG/DL (7-18); CHLORIDE 102 MEQ/L (98-107); GLOMERULAR FILTRATION RATE 73 ML/MIN (>89); POTASSIUM 4.6 MEQ/L (3.5-5.1); SODIUM (NA) 136 MEQ/L (136-145)
[2017-08-11 05:52] LABS: ALKALINE PHOSPHATASE 61 U/L (45-117); TOTAL BILIRUBIN ADULT 0.6 MG/DL (0.2-1.0)
[2017-08-11] MEDS: KETOROLAC TROMETHAMINE 30 MG/ML (IVP) VIAL IV PUSH SCH ×4 (05:58→23:46)
[2017-08-11] MEDS: GABAPENTIN 300 MG CAP PO SCH ×3 (05:58→21:25)
[2017-08-11] MEDS: SODIUM CHLOR 0.9% 1000 ML INJ 1,000 ML IV SCH ×2 (05:59→16:41)
[2017-08-11] MEDS: ENOXAPARIN SODIUM 40 MG/0.4 ML SYRINGE SQ SCH (07:42)
[2017-08-11] MEDS: oxyCODONE/ACETAMINOPHEN 10 MG/325 MG TAB PO PRN ×3 (07:42→21:25)
[2017-08-11] MEDS: LIDOCAINE HCL 5% PATCH T-DERMAL SCH (07:43)
[2017-08-11] MEDS: SODIUM CHLORIDE 0.9% FLUSH 10 ML FLUSH IV FLUSH SCH ×2 (08:17→21:26)
--- NOTE | 2017-08-11 08:30 | RADRPT ---
EXAM DATE/TIME: 08/11/2017 07:33 [facility] COMPARISON: CHEST SINGLE AP, August 10, 2017, 6:07. INDICATIONS : Shortness of breath. MEDICAL HISTORY : None. SURGICAL HISTORY : None. ENCOUNTER: Subsequent ACUITY: 4 - 6 days PAIN SCORE: Non-responsive. LOCATION: Bilateral chest FINDINGS: There is a tiny right apical pneumothorax measuring 6 mm. Right-sided chest tube remains in good pos ition. Perihilar patchiness is again noted consistent with pulmonary vascular congestion versus pneu monia. The heart is enlarged. CONCLUSION: 1. Tiny right apical pneumothorax measuring 6 mm. 2. Perihilar infiltrates consistent with pulmonary vascular congestion versus pneumonia. 3. Cardiomegaly. Eddie Casas MD on August 11, 2017 at 7:35 Board Certified Radiologist. This report was verified electronically.
[2017-08-11] MEDS: LACTULOSE SYRUP 20 GM/30 ML CUP PO SCH ×2 (09:00→11:22)
[2017-08-11] MEDS: DOCUSATE SODIUM 50 MG/SENNA 8.6 MG TAB PO SCH ×2 (10:04→21:00)
--- NOTE | 2017-08-11 10:27 | HHI.PR ---
Subjective Subjective Notes Pain controlled Breathing improved. CXR this AM shows apical PTX Afebrile Objective Vitals/I&O Vital Signs Date Time Temp Pulse Resp B/P (MAP) Pulse Ox O2 Delivery O2 Flow Rate FiO2 08/11/17 09:22 96 Nasal Cannula 3.00 08/11/17 08:00 98.0 107 16 108/57 (74) 08/09/17 19:00 100 Labs Laboratory Tests Test 08/11/17 05:12 White Blood Count 9.8 Red Blood Count 3.18 Hemoglobin 10.1 Hematocrit 29.1 Mean Corpuscular Volume 91.5 Mean Corpuscular Hemoglobin 31.7 Mean Corpuscular Hemoglobin Concent 34.7 Red Cell Distribution Width 13.9 Platelet Count 142 Mean Platelet Volume 8.2 Neutrophils (%) (Auto) 73.7 Lymphocytes (%) (Auto) 14.9 Monocytes (%) (Auto) 8.4 Eosinophils (%) (Auto) 1.8 Basophils (%) (Auto) 1.2 Neutrophils # (Auto) 7.2 Lymphocytes # (Auto) 1.5 Monocytes # (Auto) 0.8 Eosinophils # (Auto) 0.2 Basophils # (Auto) 0.1 CBC Comment DIFF FINAL Differential Comment Blood Urea Nitrogen 25 Creatinine 1.12 Random Glucose 109 Total Protein 5.8 Albumin 2.2 Calcium Level 8.2 Alkaline Phosphatase 61 Aspartate Amino Transf (AST/SGOT) 144 Alanine Aminotransferase (ALT/SGPT) 256 Total Bilirubin 0.6 Sodium Level 136 Potassium Level 4.6 Chloride Level 102 Carbon Dioxide Level 29.3 Anion Gap 5 Estimat Glomerular Filtration Rate 73 Narrative Exam GENERAL: 41 year old adult male in mild respiratory distress. SKIN: Warm and dry. Facial abrasions noted. HEAD: Normocephalic. EYES: Pupils equal and round. No scleral icterus. No injection or drainage. ENT: No nasal bleeding or discharge. Mucous membranes pink and moist. NECK: Trachea midline. No JVD. CARDIOVASCULAR: Sinus tachycardia. RESPIRATORY: No accessory muscle use. Clear and diminished to auscultation. RIGHT lateral chest tube in place secured to pleura vac system at -20 cm suction. No air leak. GASTROINTESTINAL: Abdomen soft, nontender, nondistended. + BS MUSCULOSKELETAL: Extremities without cyanosis, or edema. MAEW, + perfused NEUROLOGICAL: Awake and alert. Normal speech. A/P Assessment and Plan INJURIES: Scalp lac (braxton) Nasal bone fx Pneumomediastinum RIGHT rib fx (7-11) w/ tiny PTX RIGHT lower lobe pneumatocele BILAT lung contusions RIGHT kidney fx w/ hemorrhage LIVER contusion 08/09: RIGHT CT placed for JACKIE (-700mL) Diet: Regular Pulm: IS, EZ-PAP with nebs, Acapella Pain: Percocet. Dilaudid IV. Robaxin. Lidoderm patch, Toradol IV Activity: OOB. PT ordered GI: Pepcid PO Bowel: Lamar-colace 2 tabs, MOM. Lactulose. No BM yet. Mag citrate x1 today DVT: SCD's. Lovenox 40 QD RIGHT rib fx w/small PTX, BILAT lung contusions, RIGHT JACKIE S/P RIGHT CT placed for JACKIE (-700mL) Wean O2 as tolerated Continue RIGHT CT @ 20cm suction CT drained 30mL overnight Daily CT dressing changes Pain control Pulmonary toileting CXR today shows small apical PTX CXR in AM OOB Lovenox RIGHT kidney fx w/ hemorrhage, LIVER contusion Supportive care H&H stable 08/09: CT abdomen- kidney hematoma smaller, liver contusion stable Pain control Bowel regimen Plan of care discussed with patient and RN at bedside. Case management consult to assist with discharge planning. The exam, history, and the medical decision-making described in the above note were completed with the assistance of the mid-level provider. I reviewed and agree with the findings presented. I attest that I had a [id number] encounter with the patient on the same day, and personally performed and documented my assessment and findings in the medical record. Luis M Belle Aug 11, 2017 10:27 Dominic Horton MD Aug 11, 2017 13:50
[2017-08-11] MEDS ORDERED: MAGNESIUM CITRATE SOLN 300 ML BTL PO ONE (13:45)
[2017-08-11] MEDS: MAGNESIUM HYDROXIDE SUSP 30 ML CUP PO SCH (21:00)
[2017-08-11] MEDS: REMOVE OLD PATCH-LIDOCAINE T-DERMAL SCH (21:00)
[2017-08-11] MEDS ORDERED: SENN1TAB PO (22:01)
[2017-08-12] VITALS (10 sets, daily range): BP systolic 112–130; BP diastolic 56–66; PULSE 86–122; RESP 18–20; TEMP 96.6–99.4; O2SAT 94–98
[2017-08-12] MEDS: RESP: ALBUTEROL 2.5 MG/IPRATROPIUM 0.5 MG NEB (SCH) NEB ×6 (01:13→20:03)
[2017-08-12] MEDS: oxyCODONE/ACETAMINOPHEN 10 MG/325 MG TAB PO PRN ×4 (04:21→20:54)
[2017-08-12] MEDS: KETOROLAC TROMETHAMINE 30 MG/ML (IVP) VIAL IV PUSH SCH ×2 (04:22→11:22)
[2017-08-12] MEDS: GABAPENTIN 300 MG CAP PO SCH ×3 (04:22→20:56)
[2017-08-12 06:01] LABS: BASOPHIL % 0.3 % (0.0-2.0); EOSINOPHIL # 0.2 TH/MM3 (0-0.4); EOSINOPHIL % 2.1 % (0.0-4.0); HEMATOCRIT 29.6 % (39.0-51.0); HEMO FLAGS DIFF FINAL; LYMPH % 14.8 % (9.0-44.0); LYMPHOCYTE # 1.3 TH/MM3 (1.0-4.8); MEAN CORPUSCULAR HEMOGLOBIN 31.3 PG (27.0-34.0); MONO % 14.3 % (0.0-8.0); NEUT % 68.5 % (16.0-70.0); PLATELET COUNT 163 TH/MM3 (150-450); RED BLOOD COUNT 3.22 MIL/MM3 (4.50-5.90); RED CELL DISTRIBUTION WIDTH 14.1 % (11.6-17.2); WHITE BLOOD COUNT 8.7 TH/MM3 (4.0-11.0)
[2017-08-12 06:25] LABS: ALT (GPT) 191 U/L (12-78); ANION GAP 9 MEQ/L (5-15); AST (GOT) 92 U/L (15-37); BICARBONATE 27.4 MEQ/L (21.0-32.0); BLOOD UREA NITROGEN 21 MG/DL (7-18); CHLORIDE 100 MEQ/L (98-107); GLOMERULAR FILTRATION RATE 76 ML/MIN (>89); POTASSIUM 4.1 MEQ/L (3.5-5.1); SODIUM (NA) 136 MEQ/L (136-145)
[2017-08-12 06:27] LABS: ALKALINE PHOSPHATASE 71 U/L (45-117); TOTAL BILIRUBIN ADULT 0.7 MG/DL (0.2-1.0)
[2017-08-12] MEDS ORDERED: BISACODYL EC 5 MG TABEC PO ONE (06:45)
[2017-08-12] MEDS ORDERED: BISACODYL 10 MG SUPP RECTAL ONE (06:45)
--- NOTE | 2017-08-12 07:03 | RADRPT ---
EXAM DATE/TIME: 08/12/2017 07:02 [facility] COMPARISON: CHEST SINGLE AP, August 11, 2017, 7:33. INDICATIONS : Short of breath, chest pain, evaluate right chest tube MEDICAL HISTORY : fractured kidney SURGICAL HISTORY : None. ENCOUNTER: Subsequent ACUITY: 1 week PAIN SCORE: 10/10 LOCATION: Bilateral chest FINDINGS: A single view of the chest demonstrates right-sided chest tube. No pneumothorax. Heart mildly enlarge d. Minimal bibasilar atelectasis. The cardiomediastinal contours are unremarkable. CONCLUSION: Right-sided chest tube without pneumothorax. Haseeb White MD on August 12, 2017 at 7:01 Board Certified Radiologist. This report was verified electronically.
[2017-08-12] MEDS: LIDOCAINE HCL 5% PATCH T-DERMAL SCH (07:59)
[2017-08-12] MEDS: LACTULOSE SYRUP 20 GM/30 ML CUP PO SCH (07:59)
[2017-08-12] MEDS: SODIUM CHLORIDE 0.9% FLUSH 10 ML FLUSH IV FLUSH SCH ×2 (08:00→20:54)
[2017-08-12] MEDS: ENOXAPARIN SODIUM 40 MG/0.4 ML SYRINGE SQ SCH (08:00)
[2017-08-12] MEDS: DOCUSATE SODIUM 50 MG/SENNA 8.6 MG TAB PO SCH ×2 (08:00→20:55)
[2017-08-12] MEDS: HYDROmorphone HCL PF 0.5 MG/0.5 ML SYRINGE IV PRN ×2 (08:11→14:50)
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
[2017-08-12] MEDS: MAGNESIUM HYDROXIDE SUSP 30 ML CUP PO SCH (20:55)
[2017-08-12] MEDS: REMOVE OLD PATCH-LIDOCAINE T-DERMAL SCH (20:56)
[2017-08-13] VITALS (10 sets, daily range): BP systolic 116–131; BP diastolic 59–68; PULSE 91–109; RESP 18–20; TEMP 97–99.5; O2SAT 95–97
[2017-08-13] MEDS: RESP: ALBUTEROL 2.5 MG/IPRATROPIUM 0.5 MG NEB (SCH) NEB ×3 (00:25→07:43)
[2017-08-13] MEDS: oxyCODONE/ACETAMINOPHEN 10 MG/325 MG TAB PO PRN ×6 (00:58→20:57)
[2017-08-13] MEDS: GABAPENTIN 300 MG CAP PO SCH ×3 (04:53→20:58)
--- NOTE | 2017-08-13 08:29 | RADRPT ---
EXAM DATE/TIME: 08/13/2017 07:21 [facility] COMPARISON: CHEST SINGLE AP, August 12, 2017, 7:02. INDICATIONS : Pain right chest, short of breath, evaluate chest tube on right MEDICAL HISTORY : Fractured kidney, pneumothorax SURGICAL HISTORY : Chest tube ENCOUNTER: Subsequent ACUITY: 1 week PAIN SCORE: 10/10 LOCATION: Bilateral chest FINDINGS: A right chest tube is unchanged. The heart is enlarged. Slight interval worsening perihilar infiltr ates are noted consistent with worsening pulmonary edema versus pneumonia. Clinical correlation is r ecommended. No pneumothorax is noted on the right. CONCLUSION: 1. Slight interval worsening perihilar infiltrates consistent with worsening pulmonary edema versus p neumonia. Clinical correlation is recommended. 2. Cardiomegaly. Eddie Casas MD on August 13, 2017 at 7:39 Board Certified Radiologist. This report was verified electronically.
[2017-08-13] MEDS: SODIUM CHLORIDE 0.9% FLUSH 10 ML FLUSH IV FLUSH SCH ×2 (08:37→20:59)
[2017-08-13] MEDS: DOCUSATE SODIUM 50 MG/SENNA 8.6 MG TAB PO SCH ×2 (08:37→20:58)
[2017-08-13] MEDS: LACTULOSE SYRUP 20 GM/30 ML CUP PO SCH (08:37)
[2017-08-13] MEDS: LIDOCAINE HCL 5% PATCH T-DERMAL SCH (08:38)
[2017-08-13] MEDS: ENOXAPARIN SODIUM 40 MG/0.4 ML SYRINGE SQ SCH (08:58)
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
[2017-08-13] MEDS: MAGNESIUM HYDROXIDE SUSP 30 ML CUP PO SCH (20:58)
[2017-08-13] MEDS: REMOVE OLD PATCH-LIDOCAINE T-DERMAL SCH (20:59)
[2017-08-13] MEDS: HYDROmorphone HCL PF 0.5 MG/0.5 ML SYRINGE IV PRN (23:26)
[2017-08-14] VITALS (9 sets, daily range): BP systolic 116–138; BP diastolic 56–70; PULSE 90–104; RESP 16–20; TEMP 97–99.1; O2SAT 93–97
[2017-08-14] MEDS: oxyCODONE/ACETAMINOPHEN 10 MG/325 MG TAB PO PRN ×6 (01:35→21:43)
[2017-08-14] MEDS: GABAPENTIN 300 MG CAP PO SCH ×3 (04:31→19:41)
[2017-08-14 04:33] LABS: AUTOMATED NEUTROPHIL # 8.6 TH/MM3 (1.8-7.7); BASOPHIL # 0.1 TH/MM3 (0-0.2); BASOPHIL % 0.7 % (0.0-2.0); EOSINOPHIL # 0.3 TH/MM3 (0-0.4); EOSINOPHIL % 2.4 % (0.0-4.0); HEMATOCRIT 32.3 % (39.0-51.0); LYMPH % 9.7 % (9.0-44.0); LYMPHOCYTE # 1.1 TH/MM3 (1.0-4.8); MEAN CELL VOLUME 91.7 FL (80.0-100.0); MEAN CORPUSCULAR HEMOGLOBIN 30.9 PG (27.0-34.0); MEAN CORPUSCULAR HGB CONC 33.7 % (32.0-36.0); MONO % 13.9 % (0.0-8.0); NEUT % 73.3 % (16.0-70.0); PLATELET COUNT 231 TH/MM3 (150-450); RED BLOOD COUNT 3.53 MIL/MM3 (4.50-5.90); RED CELL DISTRIBUTION WIDTH 14.3 % (11.6-17.2); WHITE BLOOD COUNT 11.7 TH/MM3 (4.0-11.0)
[2017-08-14 04:41] LABS: HEMO FLAGS AUTO DIFF
[2017-08-14 05:02] LABS: BICARBONATE 27.7 MEQ/L (21.0-32.0); POTASSIUM 4.4 MEQ/L (3.5-5.1)
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
[2017-08-14 06:52] LABS: BANDS 6 % (0-6); EOSINOPHILS 2 % (0-4); METAMYELOCYTES 2 % (0-1); MYELOCYTES 3 % (0-0); NEUTROPHIL # MANUAL DIFF 8.9 TH/MM3 (1.8-7.7); POLYS (SEG NEUTROPHILS) 62 % (16-70); PROMYELOCYTES 3 % (0-0); WBC DIFF SAMPLE 100
[2017-08-14 06:53] LABS: PLATELET ESTIMATE SMEAR NORMAL (NORMAL); PLATELET MORPHOLOGY NORMAL (NORMAL); SCAN/DIFF FINAL DIFF MANUAL
[2017-08-14] MEDS: LACTULOSE SYRUP 20 GM/30 ML CUP PO SCH (08:31)
[2017-08-14] MEDS: LIDOCAINE HCL 5% PATCH T-DERMAL SCH (08:31)
[2017-08-14] MEDS: DOCUSATE SODIUM 50 MG/SENNA 8.6 MG TAB PO SCH ×2 (08:31→19:41)
[2017-08-14] MEDS: SODIUM CHLORIDE 0.9% FLUSH 10 ML FLUSH IV FLUSH SCH ×2 (08:32→19:42)
[2017-08-14] MEDS: ENOXAPARIN SODIUM 40 MG/0.4 ML SYRINGE SQ SCH (08:41)
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
[2017-08-14] MEDS: MAGNESIUM HYDROXIDE SUSP 30 ML CUP PO SCH (19:41)
[2017-08-14] MEDS: REMOVE OLD PATCH-LIDOCAINE T-DERMAL SCH (19:41)
[2017-08-14] MEDS: HYDROmorphone HCL PF 0.5 MG/0.5 ML SYRINGE IV PRN (19:42)
[2017-08-14] MEDS: ONDANSETRON HCL 4 MG/2 ML VIAL IV PUSH PRN (19:42)
[2017-08-15] VITALS (9 sets, daily range): BP systolic 118–139; BP diastolic 56–75; PULSE 90–112; RESP 17–18; TEMP 96.6–99.4; O2SAT 95–98
[2017-08-15] MEDS: oxyCODONE/ACETAMINOPHEN 10 MG/325 MG TAB PO PRN ×6 (02:08→22:19)
[2017-08-15 05:46] LABS: AUTOMATED NEUTROPHIL # 8.5 TH/MM3 (1.8-7.7); BASOPHIL % 0.4 % (0.0-2.0); EOSINOPHIL # 0.2 TH/MM3 (0-0.4); EOSINOPHIL % 1.9 % (0.0-4.0); HEMATOCRIT 32.8 % (39.0-51.0); MEAN CORPUSCULAR HEMOGLOBIN 30.6 PG (27.0-34.0); MEAN CORPUSCULAR HGB CONC 33.3 % (32.0-36.0); MONO % 14.9 % (0.0-8.0); NEUT % 73.8 % (16.0-70.0); PLATELET COUNT 270 TH/MM3 (150-450); RED BLOOD COUNT 3.57 MIL/MM3 (4.50-5.90); RED CELL DISTRIBUTION WIDTH 14.1 % (11.6-17.2); WHITE BLOOD COUNT 11.6 TH/MM3 (4.0-11.0)
[2017-08-15 05:51] LABS: HEMO FLAGS AUTO DIFF
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
[2017-08-15] MEDS: GABAPENTIN 300 MG CAP PO SCH ×3 (06:11→22:19)
[2017-08-15 06:17] LABS: BICARBONATE 28.3 MEQ/L (21.0-32.0); POTASSIUM 4.3 MEQ/L (3.5-5.1)
[2017-08-15 08:35] LABS: MYELOCYTES 5 % (0-0)
[2017-08-15 08:36] LABS: BANDS 12 % (0-6); BLASTS 0 % (0-0); NEUTROPHIL # MANUAL DIFF 9.4 TH/MM3 (1.8-7.7); PLATELET ESTIMATE SMEAR NORMAL (NORMAL); PLATELET MORPHOLOGY NORMAL (NORMAL); POLYS (SEG NEUTROPHILS) 64 % (16-70); TOXIC GRANULATION 1+ (NORMAL); WBC DIFF SAMPLE 100
[2017-08-15 08:37] LABS: SCAN/DIFF FINAL DIFF MANUAL
[2017-08-15] MEDS: SODIUM CHLORIDE 0.9% FLUSH 10 ML FLUSH IV FLUSH SCH ×2 (09:00→20:52)
[2017-08-15] MEDS: ENOXAPARIN SODIUM 40 MG/0.4 ML SYRINGE SQ SCH ×2 (09:07→20:55)
[2017-08-15] MEDS: DOCUSATE SODIUM 50 MG/SENNA 8.6 MG TAB PO SCH ×2 (09:07→20:52)
[2017-08-15] MEDS: LACTULOSE SYRUP 20 GM/30 ML CUP PO SCH (09:07)
[2017-08-15] MEDS: LIDOCAINE HCL 5% PATCH T-DERMAL SCH (09:08)
[2017-08-15] MEDS: ONDANSETRON HCL 4 MG/2 ML VIAL IV PUSH PRN ×2 (10:09→17:13)
[2017-08-15] MEDS: HYDROmorphone HCL PF 0.5 MG/0.5 ML SYRINGE IV PRN ×3 (12:18→20:59)
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
--- NOTE | 2017-08-15 16:55 | RADRPT ---
EXAM DATE/TIME: 08/15/2017 15:44 [facility] COMPARISON: No previous studies available for comparison. INDICATIONS : Right leg swelling. MEDICAL HISTORY : Hiatal hernia. Right leg swelling and pain. SURGICAL HISTORY : Hernia repair. ENCOUNTER: Initial ACUITY: 3 days PAIN SCORE: 4/10 LOCATION: Right leg. TECHNIQUE: Venous ultrasound of the leg was performed from the inguinal ligament to the proximal calf. Real-yola e, color Doppler and spectral tracing, compression and augmentation techniques were used. FINDINGS: There is normal compressibility of the deep venous system from the inguinal region to the proximal ca lf. No echogenic clot is seen in the lumen of the common femoral, femoral, popliteal, and posterior tibial veins. There is a normal response of the venous system to proximal and distal augmentation an d respiration. The study was limited by overlying bandages. CONCLUSION: No evidence of deep venous thrombosis. The study was limited by overlying bandages fr om injury. Louis Quan MD on August 15, 2017 at 16:53 Board Certified Radiologist. This report was verified electronically.
[2017-08-15] MEDS: REMOVE OLD PATCH-LIDOCAINE T-DERMAL SCH (20:52)
[2017-08-15] MEDS: MAGNESIUM HYDROXIDE SUSP 30 ML CUP PO SCH (20:52)
[2017-08-16] MEDS: oxyCODONE/ACETAMINOPHEN 10 MG/325 MG TAB PO PRN ×5 (02:09→21:14)
[2017-08-16 04:53] VITALS: BP 122/59; PULSE 90; RESP 18; TEMP 97.7; O2SAT 97
[2017-08-16] MEDS: GABAPENTIN 300 MG CAP PO SCH ×3 (06:08→21:14)
--- NOTE | 2017-08-16 07:08 | RADRPT ---
EXAM DATE/TIME: 08/16/2017 06:05 [facility] COMPARISON: CHEST SINGLE AP, August 15, 2017, 6:19. INDICATIONS : Follow up post trauma, evaluate small right apical pneumothorax MEDICAL HISTORY : Fractured kidney, pneumothorax, fractured ribs. SURGICAL HISTORY : chest tube ENCOUNTER: Subsequent ACUITY: 1 week PAIN SCORE: 6/10 LOCATION: Right chest FINDINGS: The right apical pneumothorax is slightly larger. There is decreasing lung aeration with increasing a telectasis especially in the right midlung. Right chest tube remains in place. Heart and mediastinal structures are stable. CONCLUSION: 1. Slightly larger right apical pneumothorax. 2. Increasing right lung airspace disease. 3. Otherwise stable chest and right thoracostomy tube. Anuj Foley MD on August 16, 2017 at 7:05 Board Certified Radiologist. This report was verified electronically.
[2017-08-16 08:00] VITALS: BP 121/61; PULSE 94; RESP 20; TEMP 96.9; O2SAT 95
[2017-08-16] MEDS: LACTULOSE SYRUP 20 GM/30 ML CUP PO SCH (08:10)
[2017-08-16] MEDS: DOCUSATE SODIUM 50 MG/SENNA 8.6 MG TAB PO SCH ×2 (08:11→21:14)
[2017-08-16] MEDS: ENOXAPARIN SODIUM 40 MG/0.4 ML SYRINGE SQ SCH ×2 (08:11→21:15)
[2017-08-16] MEDS: LIDOCAINE HCL 5% PATCH T-DERMAL SCH (08:11)
[2017-08-16] MEDS: SODIUM CHLORIDE 0.9% FLUSH 10 ML FLUSH IV FLUSH SCH ×2 (08:12→21:15)
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
[2017-08-16 12:00] VITALS: BP 124/68; PULSE 106; RESP 18; TEMP 98.3; O2SAT 94
[2017-08-16] MEDS: HYDROmorphone HCL PF 0.5 MG/0.5 ML SYRINGE IV PRN ×3 (14:53→22:07)
[2017-08-16 16:01] VITALS: BP 119/67; PULSE 110; RESP 18; TEMP 99.1; O2SAT 95
[2017-08-16 20:00] VITALS: BP 107/58; PULSE 102; RESP 18; TEMP 99.6; O2SAT 96
[2017-08-16 20:16] VITALS: O2SAT 96
[2017-08-16] MEDS: REMOVE OLD PATCH-LIDOCAINE T-DERMAL SCH (21:00)
[2017-08-16] MEDS: MAGNESIUM HYDROXIDE SUSP 30 ML CUP PO SCH (21:14)
[2017-08-17] VITALS (7 sets, daily range): BP systolic 108–123; BP diastolic 55–65; PULSE 98–118; RESP 18; TEMP 97.4–100.8; O2SAT 92–97
[2017-08-17] MEDS: oxyCODONE/ACETAMINOPHEN 10 MG/325 MG TAB PO PRN ×4 (03:02→20:57)
[2017-08-17] MEDS: GABAPENTIN 300 MG CAP PO SCH ×3 (05:01→20:58)
--- NOTE | 2017-08-17 06:48 | RADRPT ---
EXAM DATE/TIME: 08/17/2017 05:29 CORRECTION Corrected on: August 17, 2017; Updated report time [facility] COMPARISON: CHEST SINGLE AP, August 16, 2017, 6:05. INDICATIONS : Follow up post trauma, evaluate small right apical pneumothorax MEDICAL HISTORY : Follow up post trauma, evaluate small right apical pneumothorax SURGICAL HISTORY : chest tube ENCOUNTER: Subsequent ACUITY: 1 week PAIN SCORE: 6/10 LOCATION: Right chest FINDINGS: Right base thoracostomy tube remains in place. Perihilar and basilar atelectasis or infiltrate is unc hanged. Left lung remains grossly clear. Cardiac contours are stable. CONCLUSION: No significant change Ty Acuña MD on August 17, 2017 at 6:45 Board Certified Radiologist. This report was verified electronically.
[2017-08-17] MEDS: HYDROmorphone HCL PF 0.5 MG/0.5 ML SYRINGE IV PRN ×3 (08:39→12:50)
[2017-08-17] MEDS: LACTULOSE SYRUP 20 GM/30 ML CUP PO SCH (08:40)
[2017-08-17] MEDS: LIDOCAINE HCL 5% PATCH T-DERMAL SCH (08:40)
[2017-08-17] MEDS: DOCUSATE SODIUM 50 MG/SENNA 8.6 MG TAB PO SCH ×2 (08:40→21:00)
[2017-08-17] MEDS: SODIUM CHLORIDE 0.9% FLUSH 10 ML FLUSH IV FLUSH SCH ×2 (08:41→21:00)
[2017-08-17] MEDS: ENOXAPARIN SODIUM 40 MG/0.4 ML SYRINGE SQ SCH ×2 (08:41→21:01)
[2017-08-17] MEDS: REMOVE OLD PATCH-LIDOCAINE T-DERMAL SCH (09:00)
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
[2017-08-17] MEDS: MAGNESIUM HYDROXIDE SUSP 30 ML CUP PO SCH (21:00)
[2017-08-18] VITALS (13 sets, daily range): BP systolic 105–136; BP diastolic 57–74; PULSE 106–176; RESP 18–27; TEMP 98.6–103.3; O2SAT 93–99
[2017-08-18] MEDS: oxyCODONE/ACETAMINOPHEN 10 MG/325 MG TAB PO PRN ×3 (01:19→20:46)
[2017-08-18] MEDS: HYDROmorphone HCL PF 0.5 MG/0.5 ML SYRINGE IV PRN ×5 (03:01→20:55)
[2017-08-18] MEDS ORDERED: HYDROmorphone HCL PF 0.5 MG/0.5 ML SYRINGE IV SCH (04:00)
[2017-08-18 04:33] LABS: HEMATOCRIT 33.1 % (39.0-51.0); REVIEW FLAG FINAL
[2017-08-18 04:49] LABS: BICARBONATE 26.2 MEQ/L (21.0-32.0); POTASSIUM 4.3 MEQ/L (3.5-5.1)
[2017-08-18] MEDS: DILTIAZEM INJ 125 MG in SODIUM CHLORIDE 0.9% INJ 100 ML IV PRN ×3 (05:26→20:47)
--- NOTE | 2017-08-18 06:00 | RADRPT ---
EXAM DATE/TIME: 08/18/2017 04:52 [facility] COMPARISON: CHEST SINGLE AP, August 17, 2017, 5:29. INDICATIONS : Shortness of breath. MEDICAL HISTORY : Pneumothorax, right. SURGICAL HISTORY : Chest tube, right. ENCOUNTER: Subsequent ACUITY: 1 week PAIN SCORE: Non-responsive. LOCATION: Bilateral chest FINDINGS: There has been interval removal of a right thoracostomy tube. There is no evidence of pneumothorax. H azy pleural-parenchymal opacity on the right is grossly unchanged. Mild left perihilar parenchymal op acity is unchanged. Cardiac contours are grossly stable. CONCLUSION: Right thoracostomy tube removal. Otherwise stable chest Ty Acuña MD on August 18, 2017 at 5:58 Board Certified Radiologist. This report was verified electronically.
[2017-08-18] MEDS: GABAPENTIN 300 MG CAP PO SCH ×3 (06:18→22:00)
[2017-08-18] MEDS: SODIUM CHLORIDE 0.9% FLUSH 10 ML FLUSH IV FLUSH SCH ×2 (09:00→20:45)
[2017-08-18] MEDS: DOCUSATE SODIUM 50 MG/SENNA 8.6 MG TAB PO SCH ×2 (09:00→20:46)
[2017-08-18] MEDS: LACTULOSE SYRUP 20 GM/30 ML CUP PO SCH (09:00)
[2017-08-18] MEDS ORDERED: METOPROLOL TARTRATE 25 MG TAB PO SCH (09:00)
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
[2017-08-18] MEDS: LIDOCAINE HCL 5% PATCH T-DERMAL SCH (10:10)
[2017-08-18] MEDS: ENOXAPARIN SODIUM 40 MG/0.4 ML SYRINGE SQ SCH ×2 (10:10→20:47)
[2017-08-18] MEDS: ACETAMINOPHEN 1000 MG/100 ML VIAL IV PRN ×2 (10:10→19:00)
--- NOTE | 2017-08-18 12:13 | ECHRPT ---
Indication: Paroxysmal atrial fibrillation CONCLUSIONS The left ventricular systolic function is low normal with an estimated ejection fraction in the rang e of greater than 70%. No definite wall motion abnormalities. Normal left ventricular size. Wall thickn ess is measured at the upper limits of normal. There is trace tricuspid valve regurgitation. The estimated pulmonary arterial pressure is 29 mmHg. Small pericardial effusion with no evidence for tamponade. BP: 116 / 69 HR: 156 Rhythm: Atrial fibrillation MEASUREMENTS (Male / Female) Normal Values Technical Quality:Good 2D ECHO LV Diastolic Diameter PLAX 3.5 cm 4.2 - 5.9 / 3.9 - 5.3 cm LV Systolic Diameter PLAX 2.8 cm IVS Diastolic Thickness 1.4 cm 0.6 - 1.0 / 0.6 - 0.9 cm LVPW Diastolic Thickness 1.4 cm 0.6 - 1.0 / 0.6 - 0.9 cm LV Relative Wall Thickness 0.8 LVOT Diameter 2.0 cm M-MODE Aortic Root Diameter MM 3.3 cm LA Systolic Diameter MM 3.3 cm LA Ao Ratio MM 1.0 AV Cusp Separation MM 2.1 cm DOPPLER AV Peak Velocity 117.0 cm/s AV Peak Gradient 5.5 mmHg LVOT Peak Velocity 98.7 cm/s LVOT Peak Gradient 3.9 mmHg AV Area Cont Eq pk 2.7 cm TR Peak Velocity 216.0 cm/s TR Peak Gradient 18.7 mmHg Right Atrial Pressure 10.0 mmHg Pulmonary Artery Systolic Pressu 28.7 mmHg Right Ventricular Systolic Press 28.7 mmHg PV Peak Velocity 102.0 cm/s PV Peak Gradient 4.2 mmHg FINDINGS LEFT VENTRICLE The left ventricular systolic function is low normal with an estimated ejection fraction in the rang e of greater than 70%. No definite wall motion abnormalities. Normal left ventricular size. Wall thickn ess is measured at the upper limits of normal. RIGHT VENTRICLE Normal right ventricular size and systolic function. LEFT ATRIUM The left atrial size is normal. RIGHT ATRIUM The right atrial size is normal. ATRIAL SEPTUM Normal atrial septal thickness without atrial level shunting by limited color doppler interrogation. AORTA The aortic root and proximal ascending aorta are normal in size on limited imaging. MITRAL VALVE Structurally normal mitral valve. No mitral valve stenosis or regurgitation. AORTIC VALVE Trileaflet aortic valve. No aortic valve stenosis or regurgitation. TRICUSPID VALVE There is trace tricuspid valve regurgitation. The estimated pulmonary arterial pressure is 29 mmHg. PULMONARY VALVE The pulmonary valve is not well visualized. VESSELS The inferior vena cava is normal in size. PERICARDIUM Small pericardial effusion with no evidence for tamponade. Oscar Null MD (Electronically Signed) Final Date:18 August 2017 12:12
--- NOTE | 2017-08-18 12:44 | RADRPT ---
EXAM DATE/TIME: 08/18/2017 12:22 [facility] COMPARISON: CHEST SINGLE AP, August 16, 2017, 6:05. CT PULMONARY ANGIOGRAM, August 09, 2017, 12:14. CHEST SIN GLE AP, August 18, 2017, 4:52. INDICATIONS : Fever, shortness of breath. Abnormal chest x-ray with right lung opacity. RADIATION DOSE: 7.26 CTDIvol (mGy) MEDICAL HISTORY : Hernia, hiatal. SURGICAL HISTORY : None. ENCOUNTER: Initial ACUITY: 1 day PAIN SCALE: 8/10 LOCATION: chest TECHNIQUE: Volumetric scanning of the chest was performed. Using automated exposure control and adjustment of t he mA and/or kV according to patient size, radiation dose was kept as low as reasonably achievable to obtain optimal diagnostic quality images. DICOM format image data is available electronically for r eview and comparison. Follow-up recommendations for detected pulmonary nodules are based at a minimum on nodule size and pa tient risk factors according to Fleischner Society Guidelines. FINDINGS: LUNGS: There is a small to moderate sized anterior pneumothorax measuring up to 2.3 cm in greatest AP diamet er. Consolidation remains in the right lower lobe with air bronchograms. PLEURAE: There is a small right pleural effusion with multiple small gas collections noted posteriorly. There is a minimal left effusion. MEDIASTINUM: There is a small to moderate paracardial effusion. Heart size is enlarged. There is no distinct adeno henri on this noncontrast study. There is no mediastinal shift. AXILLAE: Within normal limits. No lymphadenopathy. MUSCULOSKELETAL: There are multiple right rib fractures again noted. MISCELLANEOUS: The visualized upper abdominal organs demonstrate no acute abnormality. CONCLUSION: 1. Small to moderate right pneumothorax. 2. Dense consolidation in the right lower lobe. 3. Small right pleural effusion and minimal left effusion. 4. Small to moderate pericardial effusion. 5. Multiple right rib fractures again noted. Louis Quan MD on August 18, 2017 at 12:37 Board Certified Radiologist. This report was verified electronically.
[2017-08-18] MEDS: SOTALOL HCL 80 MG TAB PO SCH ×2 (12:59→20:45)
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
[2017-08-18] MEDS: ASPIRIN EC 81 MG TABEC PO SCH (14:16)
[2017-08-18] MEDS ORDERED: Vancomycin Consult Pharmacy 1 EA OTHER SCH ×2 (15:00)
--- NOTE | 2017-08-18 15:09 | HHI.CCPN ---
Subjective Brief History Contusion and laceration of the right kidney upper pole with retroperitoneal bleeding but no active bleeding at this time. Right lobe liver contusion with some perihepatic blood, and serial rib fractures with a very tiny pneumothorax which is sort of in the folds of the pleura as the hilum of the bronchi comes out of the mediastinum. The patient will be now placed in the ICU. Majority of the patient's will not require any further intervention and the the bleeding and are at peritoneal space will be self-contained while minority of patients may need some sort of endovascular embolization our intervention 24 Hour Review/Hospital Course Patient has been stable since the arrival Bruising over the right orbital rim is decreased Neurologic the patient is fully intact Placed several braxton and the laceration of the posterior scalp Bilateral breath sounds and no increase in the mediastinal or pleural air so for all practical purposes this is sealed of Abdomen is soft active bowel sounds Will start patient on diet Stop serial H&H 08/10/17 Patient transferred yesterday back to the ICU because of the severe pain and inability of floor to take care of him Patient is awake alert and oriented Right hemothorax had increased over the few days the patient will see her in the hospital and therefore right chest tube was placed and about 700 cc old blood obtained This improved patient's pulmonary function is breathing much easier at this point 08/18/17 After patient developed rapid atrial fibrillation in the middle of the night to be transferred to the surgical ICU for Cardizem drip and beta blockers which cannot be given the floor His current surgical ICU and heart rate about 110 per minute. Patient on Cardizem drip and betapace We will have cardiac echo because is not quite clear on patient developed A. fib Chest tube was removed yesterday and patient had no residual pneumothorax however now now has a small residual pneumothorax as well as firm consolidation of the right lower lobe Apparently pneumothorax occurred because nurse removed this morning the dressing and allow the air to enter the chest In the face of the fever will place patient on antibiotics and consult infectious disease Patient probably will not need another chest tube placed however if the pneumothorax enlarges while lace a small chest tube in radiology to expand the lung. My main problem is the fact the patient has an infiltrate in the right lower lobe which may well be pneumonia Cardiac consultation is greatly appreciated Objective Vital Signs Date Time Temp Pulse Resp B/P (MAP) Pulse Ox O2 Delivery O2 Flow Rate FiO2 08/18/17 14:47 26 08/18/17 14:00 127 08/18/17 13:16 136/71 08/18/17 12:00 99.9 93 08/18/17 08:00 Nasal Cannula 4.00 Intake and Output 08/18/17 08/18/17 08/19/17 08:00 16:00 00:00 Intake Total 240 ml Output Total 300 ml Balance -60 ml Result Diagram: 08/18/17 0420 08/18/17 0420 Imaging Last 24 hours Impressions Chest X-Ray 08/18/17 0000 Signed Impressions: Service Date/Time: Friday, August 18, 2017 04:52 - CONCLUSION: Right thoracostomy tube removal. Otherwise stable chest Ty Acuña MD Chest CT 08/18/17 0000 Signed Impressions: Service Date/Time: Friday, August 18, 2017 12:22 - CONCLUSION: 1. Small to moderate right pneumothorax. 2. Dense consolidation in the right lower lobe. 3. Small right pleural effusion and minimal left effusion. 4. Small to moderate pericardial effusion. 5. Multiple right rib fractures again noted. Louis Quan MD Exam FIELD EXAMINER Awake alert oriented Hemodynamic/Cardiac Hemodynamically patient is stable although he is in the atrial fibrillation with RVR at the rate about 110 minute Last night the rate was about 160-170 bpm and Cardizem was instituted as well as beta blockers Cardiology consult is greatly appreciated Pulmonary/Respiratory Bilateral breath sounds after removal of the dressing on the right chest tube site some air escaped into the chest and patient is a small pneumothorax Will not do anything about it and the enteral probably absorbable sewn but they didn't gets bigger patient will need a pigtail catheter In addition patient has a large right lower lobe infiltrate which is a pneumonia proven otherwise Placed on antibiotics and will consult ID Abdomen/GI Nutrition Abdomen soft tolerates diet Assessment and Plan Attestation Critical care time 42 minutes Shan Garza MD Aug 18, 2017 15:09
--- NOTE | 2017-08-18 15:27 | EKG ---
Date Performed: 08/18/2017 Time Performed: 04:12:16 PTAGE: 41 years EKG: Atrial fibrillation with uncontrolled ventricular response Abnormal ECG NO PREVIOUS TRACING DOCTOR: Garrett Marvin Interpretating Date/Time 08/18/2017 15:25:39
[2017-08-18 15:59] LABS: AUTOMATED NEUTROPHIL # 29.3 TH/MM3 (1.8-7.7); BASOPHIL % 0.1 % (0.0-2.0); EOSINOPHIL # 0.3 TH/MM3 (0-0.4); EOSINOPHIL % 0.8 % (0.0-4.0); HEMATOCRIT 36.2 % (39.0-51.0); MEAN CELL VOLUME 92.5 FL (80.0-100.0); MEAN CORPUSCULAR HEMOGLOBIN 30.4 PG (27.0-34.0); MEAN CORPUSCULAR HGB CONC 32.9 % (32.0-36.0); MONO % 9.1 % (0.0-8.0); PLATELET COUNT 376 TH/MM3 (150-450); RED BLOOD COUNT 3.91 MIL/MM3 (4.50-5.90); RED CELL DISTRIBUTION WIDTH 14.4 % (11.6-17.2); WHITE BLOOD COUNT 33.6 TH/MM3 (4.0-11.0)
[2017-08-18 16:01] LABS: HEMO FLAGS AUTO DIFF
[2017-08-18] MEDS: PIPERACIL-TAZO 4.5 GM PREMIX 100 ML IV SCH ×2 (16:22→20:45)
[2017-08-18 16:30] LABS: BANDS 9 % (0-6); BASOPHILS 1 % (0-2); EOSINOPHILS 1 % (0-4); METAMYELOCYTES 2 % (0-1); NEUTROPHIL # MANUAL DIFF 29.2 TH/MM3 (1.8-7.7); PLATELET ESTIMATE SMEAR NORMAL (NORMAL); PLATELET MORPHOLOGY NORMAL (NORMAL); POLYS (SEG NEUTROPHILS) 76 % (16-70); SCAN/DIFF FINAL DIFF MANUAL; WBC DIFF SAMPLE 100
[2017-08-18] MEDS: VANCOMYCIN INJ 2,000 MG in SODIUM CHLORID 0.9% 500 ML INJ 500 ML IV SCH (16:56)
[2017-08-18] MEDS: MAGNESIUM HYDROXIDE SUSP 30 ML CUP PO SCH (20:46)
[2017-08-18] MEDS: REMOVE OLD PATCH-LIDOCAINE T-DERMAL SCH (21:00)
[2017-08-18] MEDS: ONDANSETRON HCL 4 MG/2 ML VIAL IV PUSH PRN (21:20)
[2017-08-19] VITALS (15 sets, daily range): BP systolic 91–129; BP diastolic 63–82; PULSE 82–149; RESP 19–30; TEMP 98.6–100.1; O2SAT 93–99
[2017-08-19] MEDS: oxyCODONE/ACETAMINOPHEN 10 MG/325 MG TAB PO PRN ×6 (00:29→23:05)
[2017-08-19] MEDS ORDERED: DIGOXIN 0.5 MG/2 ML VIAL IV PUSH ONE (00:30)
[2017-08-19] MEDS ORDERED: DILTIAZEM HCL 25 MG/5 ML VIAL IV ONE (00:30)
[2017-08-19] MEDS: PIPERACIL-TAZO 4.5 GM PREMIX 100 ML IV SCH ×4 (02:24→20:48)
[2017-08-19] MEDS: VANCOMYCIN INJ 2,000 MG in SODIUM CHLORID 0.9% 500 ML INJ 500 ML IV SCH ×2 (04:00→15:19)
[2017-08-19] MEDS: GABAPENTIN 300 MG CAP PO SCH ×3 (04:31→20:49)
[2017-08-19] MEDS: DILTIAZEM INJ 125 MG in SODIUM CHLORIDE 0.9% INJ 100 ML IV PRN (04:46)
[2017-08-19 04:59] LABS: AUTOMATED NEUTROPHIL # 31.8 TH/MM3 (1.8-7.7); BASOPHIL # 0.1 TH/MM3 (0-0.2); BASOPHIL % 0.3 % (0.0-2.0); EOSINOPHIL # 0.4 TH/MM3 (0-0.4); EOSINOPHIL % 1.1 % (0.0-4.0); HEMATOCRIT 36.2 % (39.0-51.0); LYMPH % 2.5 % (9.0-44.0); LYMPHOCYTE # 0.9 TH/MM3 (1.0-4.8); MEAN CORPUSCULAR HEMOGLOBIN 30.6 PG (27.0-34.0); MEAN CORPUSCULAR HGB CONC 33.3 % (32.0-36.0); MONO % 10.2 % (0.0-8.0); NEUT % 85.9 % (16.0-70.0); PLATELET COUNT 427 TH/MM3 (150-450); RED BLOOD COUNT 3.93 MIL/MM3 (4.50-5.90); RED CELL DISTRIBUTION WIDTH 14.3 % (11.6-17.2)
[2017-08-19 05:08] LABS: HEMO FLAGS AUTO DIFF
[2017-08-19 05:25] LABS: ALKALINE PHOSPHATASE 167 U/L (45-117); ALT (GPT) 76 U/L (12-78); ANION GAP 7 MEQ/L (5-15); AST (GOT) 35 U/L (15-37); BICARBONATE 29.3 MEQ/L (21.0-32.0); BLOOD UREA NITROGEN 21 MG/DL (7-18); CHLORIDE 95 MEQ/L (98-107); GLOMERULAR FILTRATION RATE 58 ML/MIN (>89); POTASSIUM 5.2 MEQ/L (3.5-5.1); SODIUM (NA) 131 MEQ/L (136-145); TOTAL BILIRUBIN ADULT 1.6 MG/DL (0.2-1.0)
--- NOTE | 2017-08-19 05:46 | RADRPT ---
EXAM DATE/TIME: 08/19/2017 04:57 [facility] COMPARISON: CHEST SINGLE AP, August 18, 2017, 4:52. CT THORAX W/O CONTRAST, August 18, 2017, 12:22. INDICATIONS : Chest pain. MEDICAL HISTORY : Hernia, hiatal. Pneumothorax, right. SURGICAL HISTORY : Chest tube, right. ENCOUNTER: Subsequent ACUITY: 1 week PAIN SCORE: Non-responsive. LOCATION: Bilateral chest FINDINGS: Right-sided hemopneumothorax is grossly stable with small collection of apical subpleural air. Pleura l fluid and parenchymal disease extensively involved the remainder of the right hemithorax. Left lung is clear and satisfactorily aerated. There are contours are grossly stable. Multiple right-sided rib fractures again noted. CONCLUSION: Stable chest appearance Ty Acuña MD on August 19, 2017 at 5:42 Board Certified Radiologist. This report was verified electronically.
--- NOTE | 2017-08-19 07:27 | PD.CARD.PN ---
Subjective Subjective Remarks Denies CP, pleurisy, dyspnea. Mild racing palpitations last night. Mild intermittent dizziness, no syncope/near syncope. Objective Medications Item Value Date Time Aspirin 81 mg 08/18/17 1400 (Ecotrin Ec) DAILY/PO 08/18/17 1416 Sotalol HCl 80 mg 08/18/17 0930 (Betapace) Q12HR/PO 08/18/172044 Enoxaparin Sodium 30 mg 08/15/17 2100 (Lovenox Inj) BID/SQ 08/18/172046 Diltiazem HCl 125 125 ml @ 5 mls/hr 08/18/17 0500 mg/Sodium Chloride TITRATE PRN/IV 08/19/17 0446 Current Medications Medications (Trade) Dose Ordered Sig/Radha Route Start Time Stop Time Status Last Admin (NS Flush) 2 ml UNSCH PRN IV FLUSH 08/07/17 23:45 (NS Flush) 2 ml BID IV FLUSH 08/08/17 09:00 08/17/17 21:00 (Zofran Inj) 4 mg Q6H PRN IV PUSH 08/07/17 23:45 08/18/17 21:20 (Narcan Inj) 0.4 mg UNSCH PRN IV PUSH 08/07/17 23:45 (Lidoderm 5% Patch.12 Hr) 1 patch DAILY T-DERMAL 08/08/17 09:00 08/18/17 10:10 Miscellaneous Information 1 Q24H T-DERMAL 08/08/17 21:00 08/18/17 21:00 (Percocet 5-325 Mg) 1 tab Q4H PRN PO 08/08/17 10:00 08/10/17 13:49 (Percocet 10-325 Mg) 1 tab Q4H PRN PO 08/08/17 10:00 08/19/17 04:31 (Lamar-Colace) 2 tab BID PO 08/08/17 10:00 08/17/17 08:40 (Robaxin) 500 mg Q8HR PO 08/08/17 14:00 Future Hold 08/10/17 05:27 (Lactulose Liq) 30 ml DAILY PO 08/08/17 15:30 08/17/17 08:40 (Milk Of Magnesia Liq) 30 ml HS PO 08/08/17 21:00 08/16/17 21:14 (Duoneb Neb) 1 ampule Q2HR NEB PRN NEB 08/09/17 09:00 (Neurontin) 300 mg Q8HR PO 08/09/17 10:00 08/19/17 04:31 (Dilaudid Pf Inj) 0.5 mg Q2HR PRN IV 08/09/17 16:45 08/18/17 20:55 (Lovenox Inj) 30 mg BID SQ 08/15/17 21:00 08/18/17 20:47 Diltiazem HCl 125 mg/Sodium Chloride 125 ml @ 5 mls/hr TITRATE PRN IV 08/18/17 05:00 08/19/17 04:46 (Betapace) 80 mg Q12HR PO 08/18/17 09:30 08/18/17 20:45 (Ecotrin Ec) 81 mg DAILY PO 08/18/17 14:00 Future hold 08/18/17 14:16 (Ofirmev 1000 Mg/ 100 ml Inj) 1,000 mg Q6H PRN IV 08/18/17 09:15 08/18/17 19:00 Piperacillin Sod/ Tazobactam Sod 100 ml @ 200 mls/hr Q6H IV 08/18/17 15:00 08/19/17 02:24 Vancomycin HCl 2000 mg/Sodium Chloride 520 ml @ 250 mls/hr Q12H IV 08/18/17 16:00 08/19/17 04:00 Miscellaneous Information SPECIFIC LAB TO BE DRAWN:VANCOMYCIN TROUGH DATE TO... ONCE ONCE .XX 08/20/17 03:45 08/20/17 03:46 Pharmacy Profile Note 0 ml @ 0 mls/hr UNSCH OTHER 08/18/17 15:00 Vital Signs / I&O Vital Signs Date Time Temp Pulse Resp B/P (MAP) Pulse Ox O2 Delivery O2 Flow Rate FiO2 08/19/17 06:00 93 08/19/17 05:01 93 Nasal Cannula 4.00 08/19/17 04:46 95 121/71 08/19/17 04:00 98.7 99 24 108/71 (83) 99 08/19/17 04:00 91 08/19/17 02:00 103 08/19/17 00:57 98 Nasal Cannula 4.00 08/19/17 00:00 98.9 148 30 91/79 (83) 98 08/19/17 00:00 149 08/18/17 22:00 115 08/18/17 20:47 113 118/60 08/18/17 20:00 100.5 106 23 105/74 (84) 97 08/18/17 20:00 106 08/18/17 19:00 Nasal Cannula 4.00 08/18/17 18:00 126 08/18/17 16:00 98.6 128 25 112/73 (86) 99 08/18/17 16:00 128 08/18/17 14:47 26 08/18/17 14:00 127 08/18/17 13:16 156 136/71 08/18/17 12:58 26 08/18/17 12:00 148 08/18/17 12:00 99.9 148 26 105/57 (73) 93 08/18/17 10:00 150 08/18/17 08:00 156 08/18/17 08:00 Nasal Cannula 4.00 08/18/17 08:00 103.3 156 27 111/65 (80) 97 I/O 08/18/17 08/18/17 08/18/17 08/19/17 08/19/17 08/19/17 07:00 15:00 23:00 07:00 15:00 23:00 Intake Total 240 ml 225 ml 1140 ml 400 ml Output Total 300 ml 600 ml 500 ml Balance -60 ml 225 ml 540 ml -100 ml Intake Oral 240 ml 420 ml 300 ml IV Total 225 ml 720 ml 100 ml Output Urine Total 300 ml 600 ml 500 ml # Voids 2 # Bowel Movements 0 Physical Exam GENERAL: Well developed, well nourished. No acute distress. HEENT: Jugular venous pressure is normal. CHEST: Lungs clear to auscultation anteriorly. CARDIAC: Regular rate and rhythm without S3, S4, or murmur. Possible 2 component rub audible at left upper sternal border. ABDOMEN: Soft, nontender, no hepatosplenomegaly. Bowel sounds present. EXTREMITIES: No clubbing, cyanosis, or edema. Laboratory Laboratory Tests Test 08/18/17 15:38 08/19/17 04:14 White Blood Count 33.6 TH/MM3 37.0 TH/MM3 Red Blood Count 3.91 MIL/MM3 3.93 MIL/MM3 Hemoglobin 11.9 GM/DL 12.0 GM/DL Hematocrit 36.2 % 36.2 % Mean Corpuscular Volume 92.5 FL 92.0 FL Mean Corpuscular Hemoglobin 30.4 PG 30.6 PG Mean Corpuscular Hemoglobin Concent 32.9 % 33.3 % Red Cell Distribution Width 14.4 % 14.3 % Platelet Count 376 TH/MM3 427 TH/MM3 Mean Platelet Volume 7.4 FL 7.3 FL Neutrophils (%) (Auto) 87.0 % 85.9 % Lymphocytes (%) (Auto) 3.0 % 2.5 % Monocytes (%) (Auto) 9.1 % 10.2 % Eosinophils (%) (Auto) 0.8 % 1.1 % Basophils (%) (Auto) 0.1 % 0.3 % Neutrophils # (Auto) 29.3 TH/MM3 31.8 TH/MM3 Lymphocytes # (Auto) 1.0 TH/MM3 0.9 TH/MM3 Monocytes # (Auto) 3.1 TH/MM3 3.8 TH/MM3 Eosinophils # (Auto) 0.3 TH/MM3 0.4 TH/MM3 Basophils # (Auto) 0.0 TH/MM3 0.1 TH/MM3 CBC Comment AUTO DIFF AUTO DIFF Differential Total Cells Counted 100 Neutrophils % (Manual) 76 % Band Neutrophils % 9 % Lymphocytes % 2 % Monocytes % 9 % Eosinophils % 1 % Basophils % 1 % Neutrophils # (Manual) 29.2 TH/MM3 Metamyelocytes 2 % Differential Comment FINAL DIFF MANUAL Platelet Estimate NORMAL Platelet Morphology Comment NORMAL Blood Urea Nitrogen 21 MG/DL Creatinine 1.36 MG/DL Random Glucose 127 MG/DL Total Protein 6.7 GM/DL Albumin 2.3 GM/DL Calcium Level 8.7 MG/DL Alkaline Phosphatase 167 U/L Aspartate Amino Transf (AST/SGOT) 35 U/L Alanine Aminotransferase (ALT/SGPT) 76 U/L Total Bilirubin 1.6 MG/DL Sodium Level 131 MEQ/L Potassium Level 5.2 MEQ/L Chloride Level 95 MEQ/L Carbon Dioxide Level 29.3 MEQ/L Anion Gap 7 MEQ/L Estimat Glomerular Filtration Rate 58 ML/MIN Assessment and Plan Problem List: (1) Paroxysmal atrial fibrillation ICD Codes: I48.0 - Paroxysmal atrial fibrillation Status: Acute Plan: Back in NSR today on IV Cardizem, oral sotalol. Also given dose of IV digoxin last night. Etiology of atrial dysrhythmias possibly low grade pericarditis. He does have a possible rub on exam as well as small pericardial effusion. REC continue sotalol, aspirin try to change to oral Cardizem later today (2) Paroxysmal atrial flutter ICD Codes: I48.92 - Unspecified atrial flutter Status: Acute Plan: Transient atrial flutter seen on monitoring yesterday. NSR this morning. Continue treatment as for paroxysmal atrial fibrillation. Code Status full code Discussed Condition With patient Oscar Null MD Aug 19, 2017 07:27
[2017-08-19 08:00] LABS: BANDS 4 % (0-6); EOSINOPHILS 1 % (0-4); MYELOCYTES 1 % (0-0); NEUTROPHIL # MANUAL DIFF 29.6 TH/MM3 (1.8-7.7); POLYCHROMASIA 3.4 % (0.0-1.9); POLYS (SEG NEUTROPHILS) 75 % (16-70); WBC DIFF SAMPLE 100
[2017-08-19 08:01] LABS: PLATELET ESTIMATE SMEAR NORMAL (NORMAL); PLATELET MORPHOLOGY NORMAL (NORMAL); SCAN/DIFF FINAL DIFF MANUAL
[2017-08-19] MEDS: HYDROmorphone HCL PF 0.5 MG/0.5 ML SYRINGE IV PRN ×6 (08:55→21:55)
[2017-08-19] MEDS: SOTALOL HCL 80 MG TAB PO SCH ×2 (08:56→20:49)
[2017-08-19] MEDS: ASPIRIN EC 81 MG TABEC PO SCH (08:56)
[2017-08-19] MEDS: LACTULOSE SYRUP 20 GM/30 ML CUP PO SCH (08:56)
[2017-08-19] MEDS: LIDOCAINE HCL 5% PATCH T-DERMAL SCH (08:56)
[2017-08-19] MEDS: DOCUSATE SODIUM 50 MG/SENNA 8.6 MG TAB PO SCH ×2 (08:56→20:48)
[2017-08-19] MEDS: ENOXAPARIN SODIUM 40 MG/0.4 ML SYRINGE SQ SCH ×2 (08:56→20:49)
[2017-08-19] MEDS: SODIUM CHLORIDE 0.9% FLUSH 10 ML FLUSH IV FLUSH SCH ×2 (08:58→20:48)
--- NOTE | 2017-08-19 12:25 | HHI.CCPN ---
Subjective Brief History Contusion and laceration of the right kidney upper pole with retroperitoneal bleeding but no active bleeding at this time. Right lobe liver contusion with some perihepatic blood, and serial rib fractures with a very tiny pneumothorax which is sort of in the folds of the pleura as the hilum of the bronchi comes out of the mediastinum. The patient will be now placed in the ICU. Majority of the patient's will not require any further intervention and the the bleeding and are at peritoneal space will be self-contained while minority of patients may need some sort of endovascular embolization our intervention 24 Hour Review/Hospital Course Patient has been stable since the arrival Bruising over the right orbital rim is decreased Neurologic the patient is fully intact Placed several braxton and the laceration of the posterior scalp Bilateral breath sounds and no increase in the mediastinal or pleural air so for all practical purposes this is sealed of Abdomen is soft active bowel sounds Will start patient on diet Stop serial H&H 08/10/17 Patient transferred yesterday back to the ICU because of the severe pain and inability of floor to take care of him Patient is awake alert and oriented Right hemothorax had increased over the few days the patient will see her in the hospital and therefore right chest tube was placed and about 700 cc old blood obtained This improved patient's pulmonary function is breathing much easier at this point 08/18/17 After patient developed rapid atrial fibrillation in the middle of the night to be transferred to the surgical ICU for Cardizem drip and beta blockers which cannot be given the floor His current surgical ICU and heart rate about 110 per minute. Patient on Cardizem drip and Betapace We will have cardiac echo because is not quite clear on patient developed A. fib Chest tube was removed yesterday and patient had no residual pneumothorax however now now has a small residual pneumothorax as well as firm consolidation of the right lower lobe Apparently pneumothorax occurred because nurse removed this morning the dressing and allow the air to enter the chest In the face of the fever will place patient on antibiotics and consult infectious disease Patient probably will not need another chest tube placed however if the pneumothorax enlarges while lace a small chest tube in radiology to expand the lung. My main problem is the fact the patient has an infiltrate in the right lower lobe which may well be pneumonia Cardiac consultation is greatly appreciated 08/19/17 Patient received IV Bolus of Cardizem overnight as well as 0.5mg IV Digoxin x1 for sustained HR in the 150s PO Cardizem started today by Cardiology CXR today shows stable PTX with dense RLL consolidation Still having fevers. Appreciate ID consult (Luis M Belle) Objective Vital Signs Date Time Temp Pulse Resp B/P (MAP) Pulse Ox O2 Delivery O2 Flow Rate FiO2 08/19/17 10:31 93 Nasal Cannula 4.00 08/19/17 06:00 93 08/19/17 04:46 121/71 08/19/17 04:00 98.7 24 Intake and Output 08/19/17 08/19/17 08/20/17 08:00 16:00 00:00 Intake Total 400 ml Output Total 500 ml Balance -100 ml (Luis M Belle) Result Diagram: 08/19/1741308/19/17413 Objective Remarks GENERAL: 41-year-old well nourished male lying in bed. SKIN: Warm and dry. Scattered facial abrasions noted. CARDIOVASCULAR: Regular rate and rhythm. HR 90s and NSR. RESPIRATORY: No accessory muscle use. Lungs are clear and diminished RLL to auscultation. No distress or dyspnea. GASTROINTESTINAL: BS + x 4 quads. Abdomen soft, non-tender, nondistended. MUSCULOSKELETAL: RLE arenas erythema without edema noted. + perfused. MAEW. NEUROLOGICAL: Awake and alert. Normal speech and pattern. (Luis M Belle) Assessment and Plan Plan INJURIES: Scalp lac Nasal bone fx PNEUMOMEDIASTINUM RIGHT rib fx (7-11) w/ tiny PTX RIGHT lower lobe PNEUMATOCELE BILAT lung contusions RIGHT kidney fx w/ hemorrhage LIVER contusion RIGHT rib fx w/small PTX, BILAT lung contusions, RIGHT JACKIE 08/09: S/P RIGHT CT placed for JACKIE Chest x-ray stable PTX with dense RLL consolidation Pain control Aggressive pulmonary toileting Encourage OOB- PT ordered Lovenox Leukocytosis ID consulted Broad spectrum abx Blood cultures pending Likely PNA RIGHT kidney fx w/ hemorrhage, LIVER contusion Supportive care H&H stable LFTS improving 08/09: CT abdomen- kidney hematoma smaller, liver contusion stable Pain control Bowel regimen New onset Afib Cardiology consulted Echo- small pericardial effusion, no tamponade. EF > 70% Cardizem gtt, transitioning to PO Betapace ASA Converted to SR Plan discussed with collaborating trauma MD. Plan of care discussed with patient at bedside. Case management consulted to assist with DC planning. (Luis M Belle) Attestation Patient has right lower lobe pneumonia proven otherwise superimposed on the conclusion I've explained to the patient that he might need thoracoscopy and drainage of the chest if he develops hemothorax and that he may need bronchoscopy if the whites out the lung and secretions worsen his oxygen exchange Patient is now refusing any of these options preemptively Critical-care 38 minutes (Shan Garza MD) Luis M Belle Aug 19, 2017 12:25 Shan Garza MD Aug 19, 2017 17:34
--- NOTE | 2017-08-19 13:36 | EKG ---
Date Performed: 08/18/2017 Time Performed: 08:28:02 PTAGE: 41 years EKG: Atrial flutter with uncontrolled ventricular response with 2:1 A-V block. Lead(s) unsuitabl e for analysis: V2 Extensive ST-T changes are nonspecific Abnormal ECG Compared to prior tracing no s ignificant change PREVIOUS TRACING DOCTOR: Boyd Thomas Interpretating Date/Time 08/19/2017 13:32:21
--- NOTE | 2017-08-19 13:37 | EKG ---
Date Performed: 08/19/2017 Time Performed: 08:14:41 PTAGE: 41 years EKG: Sinus rhythm NONSPECIFIC ST & T-WAVE ABNORMALITY Compared to previous tracing sinus rhythm has replaced atrial fl utter with slowing of the rate BORDERLINE ECG PREVIOUS TRACING : 08/18/2017 08.28 DOCTOR: Boyd Thomas Interpretating Date/Time 08/19/2017 13:35:48
[2017-08-19] MEDS: DILTIAZEM-CD 180 MG CAP ER PO SCH (15:21)
--- NOTE | 2017-08-19 16:31 | HHI.IDPN ---
Subjective Subjective Remarks states he feeels better Creatinine going up WBC skyrocket to 37 K co abd discomfort denies diarrhea Last BM 2 days ago Antibiotics zosyn vanco Allergies: Coded Allergies: No Known Allergies (Unverified , 08/07/17) Objective . Vital Signs Date Time Temp Pulse Resp B/P (MAP) Pulse Ox O2 Delivery O2 Flow Rate FiO2 08/19/17 15:24 90 122/65 08/19/17 11:30 88 114/57 08/19/17 10:31 93 Nasal Cannula 4.00 08/19/17 08:30 98 125/65 08/19/17 06:00 93 08/19/17 05:01 93 Nasal Cannula 4.00 08/19/17 04:46 95 121/71 08/19/17 04:00 98.7 99 24 108/71 (83) 99 08/19/17 04:00 91 08/19/17 02:00 103 08/19/17 00:57 98 Nasal Cannula 4.00 08/19/17 00:00 98.9 148 30 91/79 (83) 98 08/19/17 00:00 149 08/18/17 22:00 115 08/18/17 20:47 113 118/60 08/18/17 20:00 100.5 106 23 105/74 (84) 97 08/18/17 20:00 106 08/18/17 19:00 97 4.00 08/18/17 19:00 Nasal Cannula 4.00 08/18/17 18:00 126 08/19/17 08/19/17 08/20/17 15:00 23:00 07:00 Intake Total 125 ml 125 ml Balance 125 ml 125 ml IV Total 125 ml 125 ml . Laboratory Tests Test 08/18/17 04:20 08/18/17 15:38 08/19/17 04:14 Hemoglobin 11.1 GM/DL 11.9 GM/DL 12.0 GM/DL Hematocrit 33.1 % 36.2 % 36.2 % White Blood Count 33.6 TH/MM3 37.0 TH/MM3 Red Blood Count 3.91 MIL/MM3 3.93 MIL/MM3 Mean Corpuscular Volume 92.5 FL 92.0 FL Mean Corpuscular Hemoglobin 30.4 PG 30.6 PG Mean Corpuscular Hemoglobin Concent 32.9 % 33.3 % Red Cell Distribution Width 14.4 % 14.3 % Platelet Count 376 TH/MM3 427 TH/MM3 Mean Platelet Volume 7.4 FL 7.3 FL Neutrophils (%) (Auto) 87.0 % 85.9 % Lymphocytes (%) (Auto) 3.0 % 2.5 % Monocytes (%) (Auto) 9.1 % 10.2 % Eosinophils (%) (Auto) 0.8 % 1.1 % Basophils (%) (Auto) 0.1 % 0.3 % Neutrophils # (Auto) 29.3 TH/MM3 31.8 TH/MM3 Lymphocytes # (Auto) 1.0 TH/MM3 0.9 TH/MM3 Monocytes # (Auto) 3.1 TH/MM3 3.8 TH/MM3 Eosinophils # (Auto) 0.3 TH/MM3 0.4 TH/MM3 Basophils # (Auto) 0.0 TH/MM3 0.1 TH/MM3 CBC Comment AUTO DIFF AUTO DIFF Differential Total Cells Counted 100 100 Neutrophils % (Manual) 76 % 75 % Band Neutrophils % 9 % 4 % Lymphocytes % 2 % 8 % Monocytes % 9 % 11 % Eosinophils % 1 % 1 % Basophils % 1 % Neutrophils # (Manual) 29.2 TH/MM3 29.6 TH/MM3 Metamyelocytes 2 % Differential Comment FINAL DIFF MANUAL FINAL DIFF MANUAL Platelet Estimate NORMAL NORMAL Platelet Morphology Comment NORMAL NORMAL Myelocytes 1 % Polychromasia 3.4 % Laboratory Tests Test 08/18/17 04:20 08/19/17 04:14 Blood Urea Nitrogen 15 MG/DL 21 MG/DL Creatinine 1.02 MG/DL 1.36 MG/DL Random Glucose 115 MG/DL 127 MG/DL Calcium Level 8.3 MG/DL 8.7 MG/DL Sodium Level 133 MEQ/L 131 MEQ/L Potassium Level 4.3 MEQ/L 5.2 MEQ/L Chloride Level 98 MEQ/L 95 MEQ/L Carbon Dioxide Level 26.2 MEQ/L 29.3 MEQ/L Anion Gap 9 MEQ/L 7 MEQ/L Estimat Glomerular Filtration Rate 81 ML/MIN 58 ML/MIN Total Protein 6.7 GM/DL Albumin 2.3 GM/DL Alkaline Phosphatase 167 U/L Aspartate Amino Transf (AST/SGOT) 35 U/L Alanine Aminotransferase (ALT/SGPT) 76 U/L Total Bilirubin 1.6 MG/DL Microbiology Date/Time Source Procedure Growth Status 08/18/17 15:38 Blood Peripheral Aerobic Blood Culture - Preliminary NO GROWTH IN 1 DAY Resulted 08/18/17 15:38 Blood Peripheral Anaerobic Blood Culture - Preliminary NO GROWTH IN 1 DAY Resulted 08/18/17 15:38 Blood Peripheral Aerobic Blood Culture - Preliminary NO GROWTH IN 1 DAY Resulted 08/18/17 15:38 Blood Peripheral Anaerobic Blood Culture - Preliminary NO GROWTH IN 1 DAY Resulted Imaging Last Impressions Chest X-Ray 08/19/17 0600 Signed Impressions: Service Date/Time: August 04:57 - CONCLUSION: Stable chest appearance Ty Acuña MD Chest CT 08/18/17 0000 Signed Impressions: Service Date/Time: Friday, August 18, 2017 12:22 - CONCLUSION: 1. Small to moderate right pneumothorax. 2. Dense consolidation in the right lower lobe. 3. Small right pleural effusion and minimal left effusion. 4. Small to moderate pericardial effusion. 5. Multiple right rib fractures again noted. Louis Quan MD Lower Extremity Ultrasound 08/15/17 Signed Impressions: Service Date/Time: Tuesday, August 15, 2017 15:44 - CONCLUSION: No evidence of deep venous thrombosis. The study was limited by overlying bandages from injury. Louis Quan MD Abdomen/Pelvis CT 08/09/17 0600 Signed Impressions: Service Date/Time: Wednesday, August 09, 2017 12:14 - CONCLUSION: 1. Suboptimal study secondary to motion and streak artifact. 2. The right kidney remains abnormal in appearance with no enhancement of portions of the upper pole again noted. The surrounding hematoma has decreased in size. 3. Subtle ill-defined low-attenuation area again noted involving the posterior inferior right lobe of the liver adjacent to the kidney. This remains most characteristic of an area of contusion. 4. New bilateral pleural effusions and consolidation in the lower lobes right greater than left. 5. Multiple right rib fractures again noted. Louis Quan MD CT Angiography 08/09/17 0000 Signed Impressions: Service Date/Time: Wednesday, August 09, 2017 12:14 - CONCLUSION: 1. New consolidation greatest in the right lower lobe with soft tissue density now noted in the right mainstem bronchus most consistent with mucous plugging. 2. New moderate size right effusion and small left effusion. 3. Multiple right-sided rib fractures again noted with no pneumothorax. 4. No evidence of pulmonary embolism. Louis Quan MD Thoracic Spine CT 08/07/172245 Signed Impressions: Service Date/Time: Monday, August 07, 2017 22:58 - CONCLUSION: No acute fracture or malalignment. Louis Quan MD Pelvis X-Ray 08/07/172245 Signed Impressions: Service Date/Time: Monday, August 07, 2017 22:30 - CONCLUSION: Negative trauma study. Louis Quan MD Maxillofacial CT 08/07/172245 Signed Impressions: Service Date/Time: Monday, August 07, 2017 22:53 - CONCLUSION: Comminuted fracture of the nasal bone. Louis Quan MD Lumbar Spine CT 08/07/172245 Signed Impressions: Service Date/Time: Monday, August 07, 2017 22:58 - CONCLUSION: No acute fracture or malalignment. Louis Quan MD Cervical Spine CT 08/07/172245 Signed Impressions: Service Date/Time: Monday, August 07, 2017 22:53 - CONCLUSION: Negative trauma CT. Louis Quan MD Physical Exam CONSTITUTIONAL/GENERAL: This is an adequately nourished patient, in no apparent distress. TUBES/LINES/DRAINS: SKIN: No jaundice, rashes, . Skin temperature appropriate. Not diaphoretic. HEAD: Healing facial abrasions and resolving ecchymoses. Normocephalic. EYES: Pupils equal and round and reactive. Extraocular motions intact. No scleral icterus. No injection or drainage. Fundi not examined. ENT: Hearing grossly normal. Nose without bleeding or purulent drainage. Oral mucosae without visible erythema, exudates, masses, or lesions. CARDIOVASCULAR: Irregular rate and rhythm without murmurs, gallops, or rubs. Afib/afultter on monitor @ 150 No JVD. Peripheral pulses symmetric. RESPIRATORY/CHEST: Symmetric, unlabored respirations. Clear to auscultation. Breath sounds diminished R. No wheezes, rales, or rhonchi. Dressing in place R - intact GASTROINTESTINAL: Abdomen soft, mild LLQ tenderness, nondistended. No hepato- splenomegaly, or palpable masses. No guarding. Bowel sounds present. GENITOURINARY: Without palpable bladder distension. MUSCULOSKELETAL: Extremities without clubbing, cyanosis, or edema. No joint tenderness or effusion noted. No calf tenderness. No mottling or clubbing. 5 cm mildly tender frlactuant lesion next to healing abrasion R arenas most likley resolving hematome Edema, induration in mulltiple spots or R thigh, likely hematomas + milldy tender to palpation LYMPHATICS: No palpable cervical or supraclavicular adenopathy. No inguinal adenopathy NEUROLOGICAL: Awake and alert. Motor and sensory grossly within normal limits. Follows commands. Clear speech . Moves all extremities. PSYCHIATRIC: No obvious anxiety/depression. no apparent hallucinations or other psychotic thought process. Assessment & Plan Remarks Assessment and Plan Assessment and Plan R pulmonary contusion Multiple R sided rib fractures Pneumothorax RLL consolidation Fever, cough MOst likley pt developped R LL PNA related to his traumatic R pulmonary contusion Pericardial effusion, moderate w/o tamponade physology per 2 D echo Small hematoma of R arenas, will observe for infection New leukemoid reaction, JACQUELIN and abd pain PLAN: - blood clx STAT - zosyn, vancomycin - sputum clx if feasible (does not expectorate) - chk CT A/P Discussed Condition With Dr Deepa Corbin,Brianne Garcia MD Aug 19, 2017 16:31
[2017-08-19] MEDS ORDERED: DIATRIZOATE MEGLUM/DIATRIZOATE SOD 9 ML CUP PO ONE (16:42)
[2017-08-19] MEDS: MAGNESIUM HYDROXIDE SUSP 30 ML CUP PO SCH (20:48)
--- NOTE | 2017-08-19 21:37 | RADRPT ---
EXAM DATE/TIME: 08/19/2017 21:18 [facility] COMPARISON: CT ABDOMEN & PELVIS W CONTRAST, August 09, 2017, 12:14. INDICATIONS : Abdominal pain with constipation. Trauma patient ORAL CONTRAST: Prescribed oral contrast ingested. RADIATION DOSE: 14.29 CTDIvol (mGy) MEDICAL HISTORY : Right rib fractures. Pneumothorax. Hiatal hernia. Right kidney injury. SURGICAL HISTORY : None. ENCOUNTER: Subsequent ACUITY: 1 week PAIN SCALE: 5/10 LOCATION: All quadrants. TECHNIQUE: Volumetric scanning of the abdomen and pelvis was performed. Using automated exposure control and ad justment of the mA and/or kV according to patient size, radiation dose was kept as low as reasonably achievable to obtain optimal diagnostic quality images. DICOM format image data is available electro nically for review and comparison. FINDINGS: LOWER LUNGS: There is a small right anterior basilar pneumothorax. There is dense consolidation in the right lower lobe. There is a small to moderate loculated effusion. A small pericardial effusion is present. LIVER: Homogeneous density without lesion. There is no dilation of the biliary tree. No calcified gallston es. SPLEEN: Normal size without lesion. PANCREAS: Within normal limits. KIDNEYS: Normal in size and shape. There is no mass, stone, or hydronephrosis. ADRENAL GLANDS: Within normal limits. VASCULAR: There is no aortic aneurysm. BOWEL/MESENTERY: The stomach, small bowel, and colon demonstrate no acute abnormality. There is no free intraperitone al air or fluid. ABDOMINAL WALL: Within normal limits. RETROPERITONEUM: There is no lymphadenopathy. BLADDER: No wall thickening or mass. REPRODUCTIVE: Within normal limits. INGUINAL: There is no lymphadenopathy or hernia. MUSCULOSKELETAL: There are multiple right rib fractures again noted. CONCLUSION: 1. Small right anterior basilar pneumothorax. 2. Consolidation in the right lower lobe with loculated pleural effusion. 3. Small pericardial effusion. 4. Multiple right rib fractures and small areas of subcutaneous emphysema. 5. There is nonobstructive bowel gas pattern. Louis Quan MD on August 19, 2017 at 21:30 Board Certified Radiologist. This report was verified electronically.
[2017-08-19] MEDS: REMOVE OLD PATCH-LIDOCAINE T-DERMAL SCH (22:40)
[2017-08-20] VITALS (13 sets, daily range): BP systolic 118–130; BP diastolic 57–71; PULSE 88–104; RESP 19–21; TEMP 98.6–99; O2SAT 96–100
[2017-08-20] MEDS ORDERED: PHARMACY ORDERED LAB ONE (03:45)
[2017-08-20] MEDS: PIPERACIL-TAZO 4.5 GM PREMIX 100 ML IV SCH ×4 (03:54→20:22)
[2017-08-20] MEDS: GABAPENTIN 300 MG CAP PO SCH ×3 (04:05→20:22)
[2017-08-20] MEDS: oxyCODONE/ACETAMINOPHEN 10 MG/325 MG TAB PO PRN ×5 (04:05→22:27)
[2017-08-20] MEDS: VANCOMYCIN INJ 2,000 MG in SODIUM CHLORID 0.9% 500 ML INJ 500 ML IV SCH (04:13)
[2017-08-20 05:20] LABS: AUTOMATED NEUTROPHIL # 21.7 TH/MM3 (1.8-7.7); BASOPHIL % 0.2 % (0.0-2.0); EOSINOPHIL # 0.5 TH/MM3 (0-0.4); HEMATOCRIT 29.9 % (39.0-51.0); LYMPH % 4.1 % (9.0-44.0); LYMPHOCYTE # 1.1 TH/MM3 (1.0-4.8); MEAN CELL VOLUME 90.7 FL (80.0-100.0); MEAN CORPUSCULAR HEMOGLOBIN 29.8 PG (27.0-34.0); MEAN CORPUSCULAR HGB CONC 32.9 % (32.0-36.0); MONO % 10.8 % (0.0-8.0); NEUT % 82.9 % (16.0-70.0); PLATELET COUNT 449 TH/MM3 (150-450); RED CELL DISTRIBUTION WIDTH 14.3 % (11.6-17.2); WHITE BLOOD COUNT 26.1 TH/MM3 (4.0-11.0)
[2017-08-20 05:29] LABS: HEMO FLAGS AUTO DIFF
[2017-08-20 05:51] LABS: ALKALINE PHOSPHATASE 139 U/L (45-117); ALT (GPT) 59 U/L (12-78); ANION GAP 9 MEQ/L (5-15); AST (GOT) 34 U/L (15-37); BICARBONATE 28.5 MEQ/L (21.0-32.0); BLOOD UREA NITROGEN 20 MG/DL (7-18); CHLORIDE 94 MEQ/L (98-107); GLOMERULAR FILTRATION RATE 64 ML/MIN (>89); POTASSIUM 3.8 MEQ/L (3.5-5.1); SODIUM (NA) 131 MEQ/L (136-145); TOTAL BILIRUBIN ADULT 1.2 MG/DL (0.2-1.0)
[2017-08-20] MEDS: HYDROmorphone HCL PF 0.5 MG/0.5 ML SYRINGE IV PRN (06:05)
[2017-08-20 06:50] LABS: BANDS 3 % (0-6); EOSINOPHILS 1 % (0-4); NEUTROPHIL # MANUAL DIFF 22.4 TH/MM3 (1.8-7.7); POLYS (SEG NEUTROPHILS) 83 % (16-70); WBC DIFF SAMPLE 100
[2017-08-20 06:51] LABS: PLATELET ESTIMATE SMEAR NORMAL (NORMAL); PLATELET MORPHOLOGY NORMAL (NORMAL); SCAN/DIFF FINAL DIFF MANUAL
[2017-08-20] MEDS: fentaNYL 50 MCG/HR PATCH T-DERMAL SCH (08:00)
[2017-08-20] MEDS: LIDOCAINE HCL 5% PATCH T-DERMAL SCH (08:00)
[2017-08-20] MEDS: SOTALOL HCL 80 MG TAB PO SCH ×2 (08:01→20:36)
[2017-08-20] MEDS: ASPIRIN EC 81 MG TABEC PO SCH (08:01)
[2017-08-20] MEDS: SODIUM CHLORIDE 0.9% FLUSH 10 ML FLUSH IV FLUSH SCH ×2 (08:01→20:22)
[2017-08-20] MEDS: LACTULOSE SYRUP 20 GM/30 ML CUP PO SCH (08:01)
[2017-08-20] MEDS: DILTIAZEM-CD 180 MG CAP ER PO SCH (08:01)
[2017-08-20] MEDS: DOCUSATE SODIUM 50 MG/SENNA 8.6 MG TAB PO SCH ×2 (08:01→20:21)
[2017-08-20] MEDS: ENOXAPARIN SODIUM 40 MG/0.4 ML SYRINGE SQ SCH ×2 (08:02→20:22)
--- NOTE | 2017-08-20 08:04 | PD.CARD.PN ---
Subjective Subjective Remarks Denies CP, pleurisy, dyspnea, palpitations. Mild intermittent dizziness. Objective Medications Item Value Date Time Diltiazem HCl 180 mg 08/19/17 1600 (Cardizem Cd) DAILY/PO 08/19/17 1521 Aspirin 81 mg 08/18/17 1400 (Ecotrin Ec) DAILY/PO 08/19/17 0856 Sotalol HCl 80 mg 08/18/17 0930 (Betapace) Q12HR/PO 08/19/172048 Enoxaparin Sodium 30 mg 08/15/17 2100 (Lovenox Inj) BID/SQ 08/19/172048 Current Medications Medications (Trade) Dose Ordered Sig/Radha Route Start Time Stop Time Status Last Admin (NS Flush) 2 ml UNSCH PRN IV FLUSH 08/07/17 23:45 (NS Flush) 2 ml BID IV FLUSH 08/08/17 09:00 08/19/17 20:48 (Zofran Inj) 4 mg Q6H PRN IV PUSH 08/07/17 23:45 08/18/17 21:20 (Narcan Inj) 0.4 mg UNSCH PRN IV PUSH 08/07/17 23:45 (Lidoderm 5% Patch.12 Hr) 1 patch DAILY T-DERMAL 08/08/17 09:00 08/19/17 08:56 Miscellaneous Information 1 Q24H T-DERMAL 08/08/17 21:00 08/19/17 22:40 (Percocet 5-325 Mg) 1 tab Q4H PRN PO 08/08/17 10:00 08/10/17 13:49 (Percocet 10-325 Mg) 1 tab Q4H PRN PO 08/08/17 10:00 08/20/17 04:05 (Lamar-Colace) 2 tab BID PO 08/08/17 10:00 08/19/17 20:48 (Robaxin) 500 mg Q8HR PO 08/08/17 14:00 Future hold 08/10/17 05:27 (Lactulose Liq) 30 ml DAILY PO 08/08/17 15:30 08/19/17 08:56 (Milk Of Magnesia Liq) 30 ml HS PO 08/08/17 21:00 08/16/17 21:14 (Duoneb Neb) 1 ampule Q2HR NEB PRN NEB 08/09/17 09:00 (Neurontin) 300 mg Q8HR PO 08/09/17 10:00 08/20/17 04:05 (Lovenox Inj) 30 mg BID SQ 08/15/17 21:00 08/19/17 20:49 (Betapace) 80 mg Q12HR PO 08/18/17 09:30 08/19/17 20:49 (Ecotrin Ec) 81 mg DAILY PO 08/18/17 14:00 Future hold 08/19/17 08:56 Piperacillin Sod/ Tazobactam Sod 100 ml @ 200 mls/hr Q6H IV 08/18/17 15:00 08/20/17 03:54 Vancomycin HCl 2000 mg/Sodium Chloride 520 ml @ 250 mls/hr Q12H IV 08/18/17 16:00 08/20/17 04:13 Pharmacy Profile Note 0 ml @ 0 mls/hr UNSCH OTHER 08/18/17 15:00 (Cardizem Cd) 180 mg DAILY PO 08/19/17 16:00 08/19/17 15:21 (Tylenol) 650 mg Q4H PRN PO 08/19/17 09:45 (Duragesic 50 Mcg Patch.72 Hr) 1 patch Q3D T-DERMAL 08/20/17 08:00 Miscellaneous Information 1 Q3D T-DERMAL 08/23/17 08:00 Vital Signs / I&O Vital Signs Date Time Temp Pulse Resp B/P (MAP) Pulse Ox O2 Delivery O2 Flow Rate FiO2 08/20/17 07:00 Nasal Cannula 4.00 08/20/17 06:00 92 08/20/17 04:00 94 08/20/17 04:00 98.8 94 21 130/71 (90) 100 08/20/17 02:00 88 08/20/17 00:00 99.0 88 21 118/68 (85) 96 08/20/17 00:00 88 08/19/17 22:00 92 08/19/17 20:00 92 08/19/17 20:00 98.9 92 21 127/64 (85) 96 08/19/17 19:00 96 Nasal Cannula 4.00 08/19/17 18:00 82 08/19/17 16:00 98.6 88 26 129/82 (98) 94 08/19/17 16:00 88 08/19/17 15:24 90 122/65 08/19/17 14:00 92 08/19/17 12:00 99.1 86 19 118/69 (85) 96 08/19/17 12:00 86 08/19/17 11:30 88 114/57 08/19/17 10:31 93 Nasal Cannula 4.00 08/19/17 10:00 94 08/19/17 08:30 98 125/65 I/O 08/19/17 08/19/17 08/19/17 08/20/17 08/20/17 08/20/17 07:00 15:00 23:00 07:00 15:00 23:00 Intake Total 400 ml 125 ml 1125 ml 1580 ml Output Total 500 ml 475 ml 650 ml Balance -100 ml 125 ml 650 ml 930 ml Intake Oral 300 ml 1000 ml 860 ml IV Total 100 ml 125 ml 125 ml 720 ml Output Urine Total 500 ml 475 ml 650 ml # Voids 2 # Bowel Movements 0 3 0 Physical Exam GENERAL: Well developed, well nourished. No acute distress. HEENT: Jugular venous pressure is normal. CHEST: Lungs clear to auscultation anteriorly. CARDIAC: Regular rate and rhythm without S3, S4, or murmur. Possible 2 component rub audible at left upper sternal border. ABDOMEN: Soft, nontender, no hepatosplenomegaly. Bowel sounds present. EXTREMITIES: No clubbing, cyanosis, or edema. Laboratory Laboratory Tests Test 08/20/17 03:57 White Blood Count 26.1 TH/MM3 Red Blood Count 3.30 MIL/MM3 Hemoglobin 9.8 GM/DL Hematocrit 29.9 % Mean Corpuscular Volume 90.7 FL Mean Corpuscular Hemoglobin 29.8 PG Mean Corpuscular Hemoglobin Concent 32.9 % Red Cell Distribution Width 14.3 % Platelet Count 449 TH/MM3 Mean Platelet Volume 7.5 FL Neutrophils (%) (Auto) 82.9 % Lymphocytes (%) (Auto) 4.1 % Monocytes (%) (Auto) 10.8 % Eosinophils (%) (Auto) 2.0 % Basophils (%) (Auto) 0.2 % Neutrophils # (Auto) 21.7 TH/MM3 Lymphocytes # (Auto) 1.1 TH/MM3 Monocytes # (Auto) 2.8 TH/MM3 Eosinophils # (Auto) 0.5 TH/MM3 Basophils # (Auto) 0.0 TH/MM3 CBC Comment AUTO DIFF Differential Total Cells Counted 100 Neutrophils % (Manual) 83 % Band Neutrophils % 3 % Lymphocytes % 3 % Monocytes % 10 % Eosinophils % 1 % Neutrophils # (Manual) 22.4 TH/MM3 Differential Comment FINAL DIFF MANUAL Platelet Estimate NORMAL Platelet Morphology Comment NORMAL Red Cell Morphology Comment NORMAL Blood Urea Nitrogen 20 MG/DL Creatinine 1.25 MG/DL Random Glucose 96 MG/DL Total Protein 6.0 GM/DL Albumin 2.1 GM/DL Calcium Level 8.1 MG/DL Alkaline Phosphatase 139 U/L Aspartate Amino Transf (AST/SGOT) 34 U/L Alanine Aminotransferase (ALT/SGPT) 59 U/L Total Bilirubin 1.2 MG/DL Sodium Level 131 MEQ/L Potassium Level 3.8 MEQ/L Chloride Level 94 MEQ/L Carbon Dioxide Level 28.5 MEQ/L Anion Gap 9 MEQ/L Estimat Glomerular Filtration Rate 64 ML/MIN Vancomycin Level Trough 12.0 MCG/ML Assessment and Plan Problem List: (1) Paroxysmal atrial fibrillation ICD Codes: I48.0 - Paroxysmal atrial fibrillation Status: Acute Plan: Remains in NSR. Etiology of atrial dysrhythmias possibly low grade pericarditis. He does have a possible rub on exam as well as small pericardial effusion on echo. REC continue sotalol, aspirin, oral Cardizem can probably eventually stop sotalol before discharge will f/u PRN over the weekend (2) Paroxysmal atrial flutter ICD Codes: I48.92 - Unspecified atrial flutter Status: Acute Plan: Transient atrial flutter seen on monitoring couple days ago. NSR this morning. Continue treatment as for paroxysmal atrial fibrillation. Code Status full code Discussed Condition With patient Oscar Null MD Aug 20, 2017 08:03
[2017-08-20] MEDS: METHOCARBAMOL 500 MG TAB PO SCH ×2 (12:23→20:21)
[2017-08-20] MEDS ORDERED: LORazepam 2 MG/ML VIAL ONE (15:15)
[2017-08-20] MEDS ORDERED: LIDOCAINE 1%/EPINEPHrine 1:100,000 SOLN 20 ML VIAL ONE ×2 (15:39→16:20)
[2017-08-20] MEDS: VANCOMYCIN INJ 2,250 MG in SODIUM CHLORID 0.9% 500 ML INJ 500 ML IV SCH (16:00)
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
--- NOTE | 2017-08-20 16:43 | PD.RAD ---
Post CT Procedure Prog Note Pre Procedure Diagnosis: (1) Right rib fracture Post Procedure Diagnosis: (1) Right rib fracture Procedure Date: Aug 20, 2017 Supervising Radiologist: Mike Hoang Anesthesia: Local Plan of Activity Patient to Unit: Critical Care Patient Condition: Good See PACS Report for procedural detail/treatment Mike Hoang MD Aug 20, 2017 16:43
[2017-08-20] MEDS ORDERED: RESP: ALBUTEROL 2.5 MG/3 ML NEB (PRN) NEB (16:45)
--- NOTE | 2017-08-20 16:53 | HHI.PR ---
Addendum to Inpatient Note Additional Information Pt is in IR receiving R sided CT Fluid clx were ordered by radiologist Abdomen/Pelvis CT 08/19/17 0000 Signed Impressions: Service Date/Time: August 21:18 - CONCLUSION: 1. Small right anterior basilar pneumothorax. 2. Consolidation in the right lower lobe with loculated pleural effusion. 3. Small pericardial effusion. 4. Multiple right rib fractures and small areas of subcutaneous emphysema. 5. There is nonobstructive bowel gas pattern. Louis Quan MD PlAn: will fu clx ; will see pt in am Brianne Corbin MD Aug 20, 2017 16:53
--- NOTE | 2017-08-20 17:13 | RADRPT ---
EXAM DATE/TIME: 08/20/2017 16:53 [facility] COMPARISON: CT GUIDED CHEST TUBE PLACEMENT RIGHT, August 20, 2017, 16:03. INDICATIONS : Evaluate for pneumothorax, post chest tube placement. MEDICAL HISTORY : Right rib fractures. Pneumothorax. Hiatal hernia. Right kidney injury. SURGICAL HISTORY : None. ENCOUNTER: Subsequent ACUITY: 1 week PAIN SCORE: 0/10 LOCATION: Right chest FINDINGS: Large bore chest tube in place on the right. There is no pneumothorax. The heart remains enlarged. Moderate pleural thickening and fluid remain in spite of chest tube. CONCLUSION: There is no pneumothorax. Zain Dickerson MD FACR on August 20, 2017 at 17:10 Board Certified Radiologist. This report was verified electronically.
--- NOTE | 2017-08-20 17:39 | HHI.CCPN ---
Subjective Brief History Contusion and laceration of the right kidney upper pole with retroperitoneal bleeding but no active bleeding at this time. Right lobe liver contusion with some perihepatic blood, and serial rib fractures with a very tiny pneumothorax which is sort of in the folds of the pleura as the hilum of the bronchi comes out of the mediastinum. The patient will be now placed in the ICU. Majority of the patient's will not require any further intervention and the the bleeding and are at peritoneal space will be self-contained while minority of patients may need some sort of endovascular embolization our intervention 24 Hour Review/Hospital Course Patient has been stable since the arrival Bruising over the right orbital rim is decreased Neurologic the patient is fully intact Placed several braxton and the laceration of the posterior scalp Bilateral breath sounds and no increase in the mediastinal or pleural air so for all practical purposes this is sealed of Abdomen is soft active bowel sounds Will start patient on diet Stop serial H&H 08/10/17 Patient transferred yesterday back to the ICU because of the severe pain and inability of floor to take care of him Patient is awake alert and oriented Right hemothorax had increased over the few days the patient will see her in the hospital and therefore right chest tube was placed and about 700 cc old blood obtained This improved patient's pulmonary function is breathing much easier at this point 08/18/17 After patient developed rapid atrial fibrillation in the middle of the night to be transferred to the surgical ICU for Cardizem drip and beta blockers which cannot be given the floor His current surgical ICU and heart rate about 110 per minute. Patient on Cardizem drip and Betapace We will have cardiac echo because is not quite clear on patient developed A. fib Chest tube was removed yesterday and patient had no residual pneumothorax however now now has a small residual pneumothorax as well as firm consolidation of the right lower lobe Apparently pneumothorax occurred because nurse removed this morning the dressing and allow the air to enter the chest In the face of the fever will place patient on antibiotics and consult infectious disease Patient probably will not need another chest tube placed however if the pneumothorax enlarges while lace a small chest tube in radiology to expand the lung. My main problem is the fact the patient has an infiltrate in the right lower lobe which may well be pneumonia Cardiac consultation is greatly appreciated 08/19/17 Patient received IV Bolus of Cardizem overnight as well as 0.5mg IV Digoxin x1 for sustained HR in the 150s PO Cardizem started today by Cardiology CXR today shows stable PTX with dense RLL consolidation Still having fevers. Appreciate ID consult 08/20 off IV cardizem still on 5l O2 reviewed CT chest 08/19 with IR about 200-400cc of blood in the chest with lung consolidation-attempted CT drainage with only 6cc output WBC down to 22 Objective Vital Signs Date Time Temp Pulse Resp B/P (MAP) Pulse Ox O2 Delivery O2 Flow Rate FiO2 08/20/17 14:00 96 08/20/17 12:47 98 Nasal Cannula 4.00 08/20/17 12:00 98.9 21 124/57 (79) Intake and Output 08/20/17 08/20/17 08/21/17 08:00 16:00 00:00 Intake Total 1580 ml 100 ml Output Total 650 ml Balance 930 ml 100 ml Result Diagram: 08/20/17 0357 08/20/17 0357 Imaging Last 24 hours Impressions Chest X-Ray 08/20/17 0000 Signed Impressions: Service Date/Time: Sunday, August 20, 2017 16:53 - CONCLUSION: There is no pneumothorax. Zain Dickerson MD FACR Exam GROUNDMAN/LINEMAN GCS 15 Hemodynamic/Cardiac SR Pulmonary/Respiratory coarse right Abdomen/GI Nutrition soft Urinary Catheter Assessment Urinary Catheter: No Assessment and Plan Plan INJURIES: Scalp lac Nasal bone fx PNEUMOMEDIASTINUM RIGHT rib fx (7-11) w/ tiny PTX RIGHT lower lobe PNEUMATOCELE BILAT lung contusions RIGHT kidney fx w/ hemorrhage LIVER contusion RIGHT rib fx w/small PTX, BILAT lung contusions, RIGHT JACKIE 08/09: S/P RIGHT CT placed for JACKIE Chest x-ray stable PTX with dense RLL consolidation Pain control may need decortication right chest Aggressive pulmonary toileting Encourage OOB- PT ordered Lovenox Leukocytosis ID consulted Broad spectrum abx Blood cultures pending Likely PNA RIGHT kidney fx w/ hemorrhage, LIVER contusion Supportive care H&H stable LFTS improving 08/09: CT abdomen- kidney hematoma smaller, liver contusion stable Pain control Bowel regimen New onset Afib Cardiology consulted Echo- small pericardial effusion, no tamponade. EF > 70% Cardizem gtt, transitioning to PO Betapace ASA Converted to SR . Plan of care discussed with patient at bedside. Case management consulted to assist with DC planning. Zainab Adkins MD 3, 2017 17:39
[2017-08-20] MEDS: MAGNESIUM HYDROXIDE SUSP 30 ML CUP PO SCH (20:22)
[2017-08-20] MEDS: RESP: ALBUTEROL 2.5 MG/IPRATROPIUM 0.5 MG NEB (SCH) NEB (20:28)
[2017-08-20] MEDS: REMOVE OLD PATCH-LIDOCAINE T-DERMAL SCH (20:36)
[2017-08-21] VITALS (15 sets, daily range): BP systolic 102–122; BP diastolic 56–67; PULSE 88–106; RESP 18–24; TEMP 98.5–100.4; O2SAT 95–100
[2017-08-21] MEDS: PIPERACIL-TAZO 4.5 GM PREMIX 100 ML IV SCH ×4 (02:07→19:58)
[2017-08-21] MEDS: VANCOMYCIN INJ 2,250 MG in SODIUM CHLORID 0.9% 500 ML INJ 500 ML IV SCH ×2 (02:49→16:00)
[2017-08-21] MEDS: oxyCODONE/ACETAMINOPHEN 10 MG/325 MG TAB PO PRN ×4 (02:50→19:16)
[2017-08-21] MEDS: METHOCARBAMOL 500 MG TAB PO SCH ×3 (04:13→20:03)
[2017-08-21] MEDS: GABAPENTIN 300 MG CAP PO SCH ×3 (04:14→20:02)
--- NOTE | 2017-08-21 04:43 | RADRPT ---
EXAM DATE/TIME: 08/21/2017 03:46 [facility] COMPARISON: CHEST SINGLE AP, August 19, 2017, 4:57. INDICATIONS : Evaluate for infiltrate MEDICAL HISTORY : Hiatal hernia. Right rib fractures, Pnuemothorax, Right kidney injury SURGICAL HISTORY : None. ENCOUNTER: Subsequent ACUITY: 1 week PAIN SCORE: 10/10 LOCATION: Bilateral chest FINDINGS: Single AP view of the chest. Right sided pigtail chest catheter is in place. Right-sided pleural effu sita is again seen and unchanged. No evidence of pneumothorax. Volume loss and mid to lower lung zone parenchymal opacity on the right unchanged. Cardiac silhouette enlarged but unchanged. Left lung latrell ar. CONCLUSION: Right sided pigtail chest catheter in place. No evidence of pneumothorax. Persistent right lung paren chymal opacity and right pleural effusion. Silver Jules MD on August 21, 2017 at 4:38 Board Certified Radiologist. This report was verified electronically.
[2017-08-21 04:45] LABS: BASOPHIL % 0.3 % (0.0-2.0); EOSINOPHIL # 0.3 TH/MM3 (0-0.4); EOSINOPHIL % 1.9 % (0.0-4.0); HEMATOCRIT 28.7 % (39.0-51.0); LYMPH % 6.1 % (9.0-44.0); LYMPHOCYTE # 0.9 TH/MM3 (1.0-4.8); MEAN CELL VOLUME 91.1 FL (80.0-100.0); MEAN CORPUSCULAR HEMOGLOBIN 29.8 PG (27.0-34.0); MEAN CORPUSCULAR HGB CONC 32.7 % (32.0-36.0); MONO % 14.2 % (0.0-8.0); NEUT % 77.5 % (16.0-70.0); PLATELET COUNT 418 TH/MM3 (150-450); RED BLOOD COUNT 3.15 MIL/MM3 (4.50-5.90); RED CELL DISTRIBUTION WIDTH 14.5 % (11.6-17.2); WHITE BLOOD COUNT 14.1 TH/MM3 (4.0-11.0)
[2017-08-21] MEDS: RESP: ALBUTEROL 2.5 MG/IPRATROPIUM 0.5 MG NEB (SCH) NEB ×4 (04:48→22:14)
[2017-08-21 04:57] LABS: HEMO FLAGS AUTO DIFF
[2017-08-21 05:03] LABS: ALT (GPT) 50 U/L (12-78); ANION GAP 9 MEQ/L (5-15); AST (GOT) 31 U/L (15-37); BLOOD UREA NITROGEN 14 MG/DL (7-18); CHLORIDE 97 MEQ/L (98-107); GLOMERULAR FILTRATION RATE 86 ML/MIN (>89); SODIUM (NA) 130 MEQ/L (136-145)
[2017-08-21 05:04] LABS: ALKALINE PHOSPHATASE 134 U/L (45-117); TOTAL BILIRUBIN ADULT 1.2 MG/DL (0.2-1.0)
--- NOTE | 2017-08-21 06:53 | RADRPT ---
EXAM DATE/TIME: 08/20/2017 16:03 INDICATIONS : History of right-sided hemothorax with suspected empyema. MEDICATION(S): 1.) 200 mcg fentanyl (Sublimaze) IV 2.) 2 mg lorazepam (Ativan) IV DEVICE(S): 1.) 16 Fr Skater FLUID: Total volume of20 cc of clear, red fluid was remoted. Fluid was sent for laboratory ordered studies. MEDICAL HISTORY : None. SURGICAL HISTORY : None. ENCOUNTER: Initial ACUITY: 1 day PAIN SCORE: 5/10 LOCATION: Right chest PROCEDURE: 2.) EKG and oximetry remained stable throughout the procedure. PROCEDURE : 1. CT guided chest tube placement. 2. Conscious sedation with continuous EKG and oximetry monitoring. The risks, benefits and alternatives to the procedure were explained and verbal and written consent w as obtained. The site was prepped in sterile fashion. Full sterile technique was used, including ca p, mask, sterile gloves and gown and a large sterile sheet. Hand hygiene and 2% chlorhexidine and/or betadine/alcohol prep was utilized per protocol for cutaneous antisepsis. The skin and subcutaneous tissues were infiltrated with local anesthetic solution. Using automated exposure control and adjus tment of the mA and/or kV according to patient size, radiation dose was kept as low as reasonably ach ievable to obtain optimal diagnostic quality images. DICOM format image data is available electronic ally for review and comparison. With CT guidance the chest was punctured and the prescribed catheter was placed in the lung apex. Wal l suction was applied. Post procedure images demonstrate satisfactory position of the tube. The cat heter was sutured in place and a Percu-Stay was applied. Only approximately 5 cc of serosanguineous f luid could be removed immediately following catheter placement containing a large amount of clot. Ent dwaine sample was submitted for Gram stain and C&S. Conscious sedation was performed with the prescribed dosages and duration as above. The patient antonio ated the procedure well and there were no complications. EKG and oximetry remained stable throughout the procedure. The patient was sent to post anesthesia recovery in stable condition. CONCLUSION: Uncomplicated chest tube placement as above. Mike Hoang MD on August 21, 2017 at 6:50 Board Certified Radiologist. This report was verified electronically.
[2017-08-21 07:06] LABS: BANDS 16 % (0-6); EOSINOPHILS 1 % (0-4); NEUTROPHIL # MANUAL DIFF 12.7 TH/MM3 (1.8-7.7); PLATELET ESTIMATE SMEAR HIGH (NORMAL); POLYS (SEG NEUTROPHILS) 74 % (16-70); WBC DIFF SAMPLE 100
[2017-08-21 07:07] LABS: PLATELET MORPHOLOGY NORMAL (NORMAL); SCAN/DIFF FINAL DIFF MANUAL
[2017-08-21] MEDS: LACTULOSE SYRUP 20 GM/30 ML CUP PO SCH (07:34)
[2017-08-21] MEDS: SODIUM CHLORIDE 0.9% FLUSH 10 ML FLUSH IV FLUSH SCH ×2 (07:35→20:00)
[2017-08-21] MEDS: DOCUSATE SODIUM 50 MG/SENNA 8.6 MG TAB PO SCH ×2 (07:35→20:00)
[2017-08-21] MEDS: SOTALOL HCL 80 MG TAB PO SCH ×2 (07:36→20:00)
[2017-08-21] MEDS: ASPIRIN EC 81 MG TABEC PO SCH (07:36)
[2017-08-21] MEDS: LIDOCAINE HCL 5% PATCH T-DERMAL SCH (07:36)
[2017-08-21] MEDS: ENOXAPARIN SODIUM 40 MG/0.4 ML SYRINGE SQ SCH ×2 (07:36→20:00)
[2017-08-21] MEDS: DILTIAZEM-CD 180 MG CAP ER PO SCH (07:36)
--- NOTE | 2017-08-21 10:18 | HHI.CCPN ---
Subjective Brief History Contusion and laceration of the right kidney upper pole with retroperitoneal bleeding but no active bleeding at this time. Right lobe liver contusion with some perihepatic blood, and serial rib fractures with a very tiny pneumothorax which is sort of in the folds of the pleura as the hilum of the bronchi comes out of the mediastinum. The patient will be now placed in the ICU. Majority of the patient's will not require any further intervention and the the bleeding and are at peritoneal space will be self-contained while minority of patients may need some sort of endovascular embolization our intervention 24 Hour Review/Hospital Course Patient has been stable since the arrival Bruising over the right orbital rim is decreased Neurologic the patient is fully intact Placed several braxton and the laceration of the posterior scalp Bilateral breath sounds and no increase in the mediastinal or pleural air so for all practical purposes this is sealed of Abdomen is soft active bowel sounds Will start patient on diet Stop serial H&H 08/10/17 Patient transferred yesterday back to the ICU because of the severe pain and inability of floor to take care of him Patient is awake alert and oriented Right hemothorax had increased over the few days the patient will see her in the hospital and therefore right chest tube was placed and about 700 cc old blood obtained This improved patient's pulmonary function is breathing much easier at this point 08/18/17 After patient developed rapid atrial fibrillation in the middle of the night to be transferred to the surgical ICU for Cardizem drip and beta blockers which cannot be given the floor His current surgical ICU and heart rate about 110 per minute. Patient on Cardizem drip and Betapace We will have cardiac echo because is not quite clear on patient developed A. fib Chest tube was removed yesterday and patient had no residual pneumothorax however now now has a small residual pneumothorax as well as firm consolidation of the right lower lobe Apparently pneumothorax occurred because nurse removed this morning the dressing and allow the air to enter the chest In the face of the fever will place patient on antibiotics and consult infectious disease Patient probably will not need another chest tube placed however if the pneumothorax enlarges while lace a small chest tube in radiology to expand the lung. My main problem is the fact the patient has an infiltrate in the right lower lobe which may well be pneumonia Cardiac consultation is greatly appreciated 08/19/17 Patient received IV Bolus of Cardizem overnight as well as 0.5mg IV Digoxin x1 for sustained HR in the 150s PO Cardizem started today by Cardiology CXR today shows stable PTX with dense RLL consolidation Still having fevers. Appreciate ID consult 08/20 off IV cardizem still on 5l O2 reviewed CT chest 08/19 with IR about 200-400cc of blood in the chest with lung consolidation-attempted CT drainage with only 6cc output WBC down to 22 08/21 WBC 14 3l O2 off cardizem may need decortication early next week-will d/w No output frpm CT Objective Vital Signs Date Time Temp Pulse Resp B/P (MAP) Pulse Ox O2 Delivery O2 Flow Rate FiO2 08/21/17 10:00 89 08/21/17 08:46 95 Nasal Cannula 3.00 08/21/17 08:00 98.7 18 121/59 (79) Intake and Output 08/21/17 08/21/17 08/22/17 08:00 16:00 00:00 Intake Total 1202 ml 100 ml Output Total 610 ml Balance 592 ml 100 ml Result Diagram: 08/21/17 0345 08/21/17 0345 Imaging Last 24 hours Impressions Chest X-Ray 08/21/17 0600 Signed Impressions: Service Date/Time: Monday, August 21, 2017 03:46 - CONCLUSION: Right sided pigtail chest catheter in place. No evidence of pneumothorax. Persistent right lung parenchymal opacity and right pleural effusion. Silver Jules MD Chest Tube Insertion 08/20/17 1548 Signed Impressions: Service Date/Time: Sunday, August 20, 2017 16:03 - CONCLUSION: Uncomplicated chest tube placement as above. Mike Hoang MD Exam [facility] GCS 15 Hemodynamic/Cardiac stable SR Pulmonary/Respiratory 3 l O2 Abdomen/GI Nutrition soft Urinary Catheter Assessment Urinary Catheter: No Assessment and Plan Plan INJURIES: Scalp lac Nasal bone fx PNEUMOMEDIASTINUM RIGHT rib fx (7-11) w/ tiny PTX RIGHT lower lobe PNEUMATOCELE BILAT lung contusions RIGHT kidney fx w/ hemorrhage LIVER contusion RIGHT rib fx w/small PTX, BILAT lung contusions, RIGHT JACKIE 08/09: S/P RIGHT CT placed for JACKIE Chest x-ray stable PTX with dense RLL consolidation Pain control may need decortication right chest Aggressive pulmonary toileting Encourage OOB- PT ordered Lovenox Leukocytosis ID consulted Broad spectrum abx PNA RIGHT kidney fx w/ hemorrhage, LIVER contusion Supportive care H&H stable LFTS improving 08/09: CT abdomen- kidney hematoma smaller, liver contusion stable Pain control Bowel regimen New onset Afib Cardiology consulted Echo- small pericardial effusion, no tamponade. EF > 70% Cardizem PO Betapace ASA Converted to SR . Plan of care discussed with patient at bedside. Case management consulted to assist with DC planning. Zainab Adkins MD Aug 21, 2017 10:18
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
[2017-08-21] MEDS ORDERED: SODIUM CHLORIDE 1 GRAM TAB PO ONE (10:45)
[2017-08-21] MEDS: MAGNESIUM HYDROXIDE SUSP 30 ML CUP PO SCH (19:59)
[2017-08-21] MEDS: REMOVE OLD PATCH-LIDOCAINE T-DERMAL SCH (20:00)
--- NOTE | 2017-08-21 20:16 | HHI.PR ---
Addendum to Inpatient Note Additional Information ID X cover - pt seen around 19 00 full note to follow Brianne Corbin MD Aug 21, 2017 20:15
--- NOTE | 2017-08-21 22:07 | HHI.IDPN ---
Subjective Subjective Remarks delaeyed entry pt was seen around 1830 co cough, severe CP sp R side CTY placement growing MRSA afeberile WBC going down Antibiotics zosyn vanco Allergies: Coded Allergies: No Known Allergies (Unverified , 08/07/17) Objective . Vital Signs Date Time Temp Pulse Resp B/P (MAP) Pulse Ox O2 Delivery O2 Flow Rate FiO2 08/21/17 18:00 96 08/21/17 16:00 98.5 96 21 121/61 (81) 96 08/21/17 16:00 92 08/21/17 14:00 89 08/21/17 12:00 90 08/21/17 12:00 98.5 93 22 119/60 (79) 95 08/21/17 10:00 89 08/21/17 08:46 95 Nasal Cannula 3.00 08/21/17 08:00 97 08/21/17 08:00 98.7 97 18 121/59 (79) 98 08/21/17 07:00 95 Nasal Cannula 4.00 08/21/17 06:00 100 08/21/17 04:50 95 Nasal Cannula 3.00 08/21/17 04:00 99.1 100 23 122/64 (83) 97 08/21/17 04:00 100 08/21/17 02:00 96 08/21/17 00:00 96 08/21/17 00:00 100.4 96 21 102/67 (79) 96 08/21/17 08/21/17 08/22/17 15:00 23:00 07:00 Intake Total 100 ml 840 ml Output Total 0 ml Balance 100 ml 840 ml Intake Oral 240 ml IV Total 100 ml 600 ml Drainage Total 0 ml # Voids 4 # Bowel Movements 1 . Laboratory Tests Test 08/20/17 03:57 08/21/17 03:45 White Blood Count 26.1 TH/MM3 14.1 TH/MM3 Red Blood Count 3.30 MIL/MM3 3.15 MIL/MM3 Hemoglobin 9.8 GM/DL 9.4 GM/DL Hematocrit 29.9 % 28.7 % Mean Corpuscular Volume 90.7 FL 91.1 FL Mean Corpuscular Hemoglobin 29.8 PG 29.8 PG Mean Corpuscular Hemoglobin Concent 32.9 % 32.7 % Red Cell Distribution Width 14.3 % 14.5 % Platelet Count 449 TH/MM3 418 TH/MM3 Mean Platelet Volume 7.5 FL 7.3 FL Neutrophils (%) (Auto) 82.9 % 77.5 % Lymphocytes (%) (Auto) 4.1 % 6.1 % Monocytes (%) (Auto) 10.8 % 14.2 % Eosinophils (%) (Auto) 2.0 % 1.9 % Basophils (%) (Auto) 0.2 % 0.3 % Neutrophils # (Auto) 21.7 TH/MM3 11.0 TH/MM3 Lymphocytes # (Auto) 1.1 TH/MM3 0.9 TH/MM3 Monocytes # (Auto) 2.8 TH/MM3 2.0 TH/MM3 Eosinophils # (Auto) 0.5 TH/MM3 0.3 TH/MM3 Basophils # (Auto) 0.0 TH/MM3 0.0 TH/MM3 CBC Comment AUTO DIFF AUTO DIFF Differential Total Cells Counted 100 100 Neutrophils % (Manual) 83 % 74 % Band Neutrophils % 3 % 16 % Lymphocytes % 3 % 5 % Monocytes % 10 % 4 % Eosinophils % 1 % 1 % Neutrophils # (Manual) 22.4 TH/MM3 12.7 TH/MM3 Differential Comment FINAL DIFF MANUAL FINAL DIFF MANUAL Platelet Estimate NORMAL HIGH Platelet Morphology Comment NORMAL NORMAL Red Cell Morphology Comment NORMAL Laboratory Tests Test 08/20/17 03:57 08/21/17 03:45 Blood Urea Nitrogen 20 MG/DL 14 MG/DL Creatinine 1.25 MG/DL 0.97 MG/DL Random Glucose 96 MG/DL 90 MG/DL Total Protein 6.0 GM/DL 6.0 GM/DL Albumin 2.1 GM/DL 1.9 GM/DL Calcium Level 8.1 MG/DL 7.9 MG/DL Alkaline Phosphatase 139 U/L 134 U/L Aspartate Amino Transf (AST/SGOT) 34 U/L 31 U/L Alanine Aminotransferase (ALT/SGPT) 59 U/L 50 U/L Total Bilirubin 1.2 MG/DL 1.2 MG/DL Sodium Level 131 MEQ/L 130 MEQ/L Potassium Level 3.8 MEQ/L 4.0 MEQ/L Chloride Level 94 MEQ/L 97 MEQ/L Carbon Dioxide Level 28.5 MEQ/L 24.0 MEQ/L Anion Gap 9 MEQ/L 9 MEQ/L Estimat Glomerular Filtration Rate 64 ML/MIN 86 ML/MIN Microbiology Date/Time Source Procedure Growth Status 08/20/17 15:40 Fluid Thoracic Fluid (Thoracentesis) Gram Stain - Final Resulted 08/20/17 15:40 Body Fluid Culture - Preliminary S. Aureus Mrsa Resulted Imaging Last Impressions Chest X-Ray 08/19/17 0600 Signed Impressions: Service Date/Time: August 04:57 - CONCLUSION: Stable chest appearance Ty Acuña MD Chest CT 08/18/17 0000 Signed Impressions: Service Date/Time: Friday, August 18, 2017 12:22 - CONCLUSION: 1. Small to moderate right pneumothorax. 2. Dense consolidation in the right lower lobe. 3. Small right pleural effusion and minimal left effusion. 4. Small to moderate pericardial effusion. 5. Multiple right rib fractures again noted. Louis Quan MD Lower Extremity Ultrasound 08/15/17 0000 Signed Impressions: Service Date/Time: Tuesday, August 15, 2017 15:44 - CONCLUSION: No evidence of deep venous thrombosis. The study was limited by overlying bandages from injury. Louis Quan MD Abdomen/Pelvis CT 08/09/17 0600 Signed Impressions: Service Date/Time: Wednesday, August 09, 2017 12:14 - CONCLUSION: 1. Suboptimal study secondary to motion and streak artifact. 2. The right kidney remains abnormal in appearance with no enhancement of portions of the upper pole again noted. The surrounding hematoma has decreased in size. 3. Subtle ill-defined low-attenuation area again noted involving the posterior inferior right lobe of the liver adjacent to the kidney. This remains most characteristic of an area of contusion. 4. New bilateral pleural effusions and consolidation in the lower lobes right greater than left. 5. Multiple right rib fractures again noted. Louis Quan MD CT Angiography 08/09/17 0000 Signed Impressions: Service Date/Time: Wednesday, August 09, 2017 12:14 - CONCLUSION: 1. New consolidation greatest in the right lower lobe with soft tissue density now noted in the right mainstem bronchus most consistent with mucous plugging. 2. New moderate size right effusion and small left effusion. 3. Multiple right-sided rib fractures again noted with no pneumothorax. 4. No evidence of pulmonary embolism. Louis Quan MD Thoracic Spine CT 08/07/17 2246 Signed Impressions: Service Date/Time: Monday, August 07, 2017 22:58 - CONCLUSION: No acute fracture or malalignment. Louis Quan MD Pelvis X-Ray 08/07/172245 Signed Impressions: Service Date/Time: Monday, August 07, 2017 22:30 - CONCLUSION: Negative trauma study. Louis Quan MD Maxillofacial CT 08/07/172245 Signed Impressions: Service Date/Time: Monday, August 07, 2017 22:53 - CONCLUSION: Comminuted fracture of the nasal bone. Louis Quan MD Lumbar Spine CT 08/07/172245 Signed Impressions: Service Date/Time: Monday, August 07, 2017 22:58 - CONCLUSION: No acute fracture or malalignment. Louis Quan MD Cervical Spine CT 08/07/172245 Signed Impressions: Service Date/Time: Monday, August 07, 2017 22:53 - CONCLUSION: Negative trauma CT. Louis Quan MD Physical Exam CONSTITUTIONAL/GENERAL: This is an adequately nourished patient, in no apparent distress.OOB in chair TUBES/LINES/DRAINS: SKIN: No jaundice, rashes, . Skin temperature appropriate. Not diaphoretic. HEAD: Healing facial abrasions and resolving ecchymoses. Normocephalic. EYES: Pupils equal and round and reactive. Extraocular motions intact. No scleral icterus. No injection or drainage. Fundi not examined. CARDIOVASCULAR: Irregular rate and rhythm without murmurs, gallops, or rubs. Afib/afultter on monitor @ 150 No JVD. Peripheral pulses symmetric. RESPIRATORY/CHEST: Symmetric, unlabored respirations. Clear to auscultation. Breath sounds diminished R. No wheezes, rales, or rhonchi. CT R side in place with serosag d/c GASTROINTESTINAL: Abdomen soft, no tenderness, nondistended. No hepato- splenomegaly, or palpable masses. No guarding. Bowel sounds present. GENITOURINARY: Without palpable bladder distension. MUSCULOSKELETAL: Extremities without clubbing, cyanosis, or edema. No joint tenderness or effusion noted. No calf tenderness. No mottling or clubbing. 5 cm mildly tender frlactuant lesion next to healing abrasion R arenas most likley resolving hematoma, drainig dark thick blood ? some purulence as well Edema, induration in mulltiple spots or R thigh, likely hematomas + milldy tender to palpation NEUROLOGICAL: Awake and alert. Motor and sensory grossly within normal limits. Follows commands. Clear speech . Moves all extremities. PSYCHIATRIC: No obvious anxiety/depression. no apparent hallucinations or other psychotic thought process. Assessment & Plan Remarks Assessment and Plan Assessment and Plan R pulmonary contusion Multiple R sided rib fractures Pneumothorax RLL consolidation Fever, cough R sided empyema, MRSA Small hematoma of R arenas,? infection New leukemoid reaction, JACQUELIN and abd pain PLAN: - fu blood clx STAT - dc zosyn - cont vancomycin - probablyn decortication Discussed Condition With Brianne Serrano MD Aug 21, 2017 22:07
[2017-08-22] VITALS (13 sets, daily range): BP systolic 110–126; BP diastolic 59–65; PULSE 83–111; RESP 17–25; TEMP 98–98.9; O2SAT 93–98
[2017-08-22] MEDS: oxyCODONE/ACETAMINOPHEN 10 MG/325 MG TAB PO PRN ×6 (01:15→20:13)
[2017-08-22] MEDS ORDERED: PHARMACY ORDERED LAB ONE (03:45)
[2017-08-22] MEDS: VANCOMYCIN INJ 2,250 MG in SODIUM CHLORID 0.9% 500 ML INJ 500 ML IV SCH ×3 (04:01→20:47)
[2017-08-22 04:20] LABS: AUTOMATED NEUTROPHIL # 8.6 TH/MM3 (1.8-7.7); BASOPHIL # 0.1 TH/MM3 (0-0.2); BASOPHIL % 0.7 % (0.0-2.0); EOSINOPHIL # 0.3 TH/MM3 (0-0.4); EOSINOPHIL % 2.5 % (0.0-4.0); HEMATOCRIT 28.4 % (39.0-51.0); LYMPH % 9.8 % (9.0-44.0); LYMPHOCYTE # 1.2 TH/MM3 (1.0-4.8); MEAN CELL VOLUME 90.5 FL (80.0-100.0); MEAN CORPUSCULAR HEMOGLOBIN 29.4 PG (27.0-34.0); MEAN CORPUSCULAR HGB CONC 32.5 % (32.0-36.0); MONO % 14.3 % (0.0-8.0); NEUT % 72.7 % (16.0-70.0); PLATELET COUNT 501 TH/MM3 (150-450); RED BLOOD COUNT 3.14 MIL/MM3 (4.50-5.90); RED CELL DISTRIBUTION WIDTH 14.6 % (11.6-17.2); WHITE BLOOD COUNT 11.8 TH/MM3 (4.0-11.0)
[2017-08-22 04:22] LABS: HEMO FLAGS AUTO DIFF
[2017-08-22] MEDS: RESP: ALBUTEROL 2.5 MG/IPRATROPIUM 0.5 MG NEB (SCH) NEB ×4 (04:23→21:31)
[2017-08-22 04:45] LABS: BICARBONATE 29.1 MEQ/L (21.0-32.0); POTASSIUM 3.8 MEQ/L (3.5-5.1)
[2017-08-22 05:09] LABS: BANDS 2 % (0-6); METAMYELOCYTES 3 % (0-1); MYELOCYTES 3 % (0-0); NEUTROPHIL # MANUAL DIFF 9.1 TH/MM3 (1.8-7.7); POLYS (SEG NEUTROPHILS) 69 % (16-70); WBC DIFF SAMPLE 100
[2017-08-22 05:10] LABS: PLATELET ESTIMATE SMEAR HIGH (NORMAL); PLATELET MORPHOLOGY ENLARGED (NORMAL); SCAN/DIFF FINAL DIFF MANUAL
[2017-08-22] MEDS: GABAPENTIN 300 MG CAP PO SCH ×3 (05:55→20:46)
[2017-08-22] MEDS: METHOCARBAMOL 500 MG TAB PO SCH ×3 (05:55→20:46)
[2017-08-22] MEDS: LACTULOSE SYRUP 20 GM/30 ML CUP PO SCH (09:00)
[2017-08-22] MEDS: ASPIRIN EC 81 MG TABEC PO SCH (09:00)
[2017-08-22] MEDS: DOCUSATE SODIUM 50 MG/SENNA 8.6 MG TAB PO SCH ×2 (09:00→20:47)
[2017-08-22] MEDS: SODIUM CHLORIDE 0.9% FLUSH 10 ML FLUSH IV FLUSH SCH ×2 (09:00→20:47)
[2017-08-22] MEDS: LIDOCAINE HCL 5% PATCH T-DERMAL SCH (09:01)
[2017-08-22] MEDS: ENOXAPARIN SODIUM 40 MG/0.4 ML SYRINGE SQ SCH ×2 (09:01→20:46)
[2017-08-22] MEDS: DILTIAZEM-CD 180 MG CAP ER PO SCH (09:57)
[2017-08-22] MEDS: SOTALOL HCL 80 MG TAB PO SCH ×2 (09:57→20:46)
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
--- NOTE | 2017-08-22 11:53 | HHI.CCPN ---
Subjective Brief History Contusion and laceration of the right kidney upper pole with retroperitoneal bleeding but no active bleeding at this time. Right lobe liver contusion with some perihepatic blood, and serial rib fractures with a very tiny pneumothorax which is sort of in the folds of the pleura as the hilum of the bronchi comes out of the mediastinum. The patient will be now placed in the ICU. Majority of the patient's will not require any further intervention and the the bleeding and are at peritoneal space will be self-contained while minority of patients may need some sort of endovascular embolization our intervention 24 Hour Review/Hospital Course Patient has been stable since the arrival Bruising over the right orbital rim is decreased Neurologic the patient is fully intact Placed several braxton and the laceration of the posterior scalp Bilateral breath sounds and no increase in the mediastinal or pleural air so for all practical purposes this is sealed of Abdomen is soft active bowel sounds Will start patient on diet Stop serial H&H 08/10/17 Patient transferred yesterday back to the ICU because of the severe pain and inability of floor to take care of him Patient is awake alert and oriented Right hemothorax had increased over the few days the patient will see her in the hospital and therefore right chest tube was placed and about 700 cc old blood obtained This improved patient's pulmonary function is breathing much easier at this point 08/18/17 After patient developed rapid atrial fibrillation in the middle of the night to be transferred to the surgical ICU for Cardizem drip and beta blockers which cannot be given the floor His current surgical ICU and heart rate about 110 per minute. Patient on Cardizem drip and Betapace We will have cardiac echo because is not quite clear on patient developed A. fib Chest tube was removed yesterday and patient had no residual pneumothorax however now now has a small residual pneumothorax as well as firm consolidation of the right lower lobe Apparently pneumothorax occurred because nurse removed this morning the dressing and allow the air to enter the chest In the face of the fever will place patient on antibiotics and consult infectious disease Patient probably will not need another chest tube placed however if the pneumothorax enlarges while lace a small chest tube in radiology to expand the lung. My main problem is the fact the patient has an infiltrate in the right lower lobe which may well be pneumonia Cardiac consultation is greatly appreciated 08/19/17 Patient received IV Bolus of Cardizem overnight as well as 0.5mg IV Digoxin x1 for sustained HR in the 150s PO Cardizem started today by Cardiology CXR today shows stable PTX with dense RLL consolidation Still having fevers. Appreciate ID consult 08/20 off IV cardizem still on 5l O2 reviewed CT chest 08/19 with IR about 200-400cc of blood in the chest with lung consolidation-attempted CT drainage with only 6cc output WBC down to 22 08/21 WBC 14 3l O2 off cardizem may need decortication early next week-will d/w No output frpm CT 08/22 slight tacypnea today no CT output wbc 11 MRSA in thoracocentesis Objective Vital Signs Date Time Temp Pulse Resp B/P (MAP) Pulse Ox O2 Delivery O2 Flow Rate FiO2 08/22/17 10:00 90 08/22/17 08:00 98.2 17 121/65 (83) 95 08/22/17 07:00 Nasal Cannula 4.00 Intake and Output 08/22/17 08/22/17 08/23/17 08:00 16:00 00:00 Intake Total 480 ml 522 ml Output Total 1712 ml Balance -1232 ml 522 ml Result Diagram: 08/22/17 0357 08/22/17 0357 Other Results Microbiology Date/Time Source Procedure Growth Status 08/20/17 15:40 Fluid Thoracic Fluid (Thoracentesis) Gram Stain - Final Complete 08/20/17 15:40 Body Fluid Culture - Final S. 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 15 Hemodynamic/Cardiac stable Pulmonary/Respiratory SOB-lungs celar B/L Abdomen/GI Nutrition soft Urinary Catheter Assessment Urinary Catheter: No Vascular Central Line Catheter Vascular Central Line Catheter: No Assessment and Plan Plan INJURIES: Scalp lac Nasal bone fx PNEUMOMEDIASTINUM RIGHT rib fx (7-11) w/ tiny PTX RIGHT lower lobe PNEUMATOCELE BILAT lung contusions RIGHT kidney fx w/ hemorrhage LIVER contusion RIGHT rib fx w/small PTX, BILAT lung contusions, RIGHT JACKIE 08/09: S/P RIGHT CT placed for JACKIE Chest x-ray stable PTX with dense RLL consolidation Pain control may need decortication right chest Aggressive pulmonary toileting Encourage OOB- PT ordered Lovenox Leukocytosis ID consulted Broad spectrum abx PNA RIGHT kidney fx w/ hemorrhage, LIVER contusion Supportive care H&H stable LFTS improving 08/09: CT abdomen- kidney hematoma smaller, liver contusion stable Pain control Bowel regimen New onset Afib Cardiology consulted Echo- small pericardial effusion, no tamponade. EF > 70% Cardizem PO Betapace ASA Converted to SR . WBC improving-more SOB today however repeat CT chest npo after MN for possible decortication Plan of care discussed with patient at bedside. Case management consulted to assist with DC planning. Zainab Adkins MD Aug 22, 2017 11:53
--- NOTE | 2017-08-22 12:12 | RADRPT ---
EXAM DATE/TIME: 08/22/2017 11:30 [facility] COMPARISON: CHEST SINGLE AP, August 21, 2017, 3:46. INDICATIONS : Short of breath. MEDICAL HISTORY : Hiatal hernia. Right rib fractures, Pnuemothorax, Right kidney injury. SURGICAL HISTORY : None. ENCOUNTER: Subsequent ACUITY: 1 week PAIN SCORE: 10/10 LOCATION: Bilateral chest FINDINGS: Right chest tube remains in place. There is basilar consolidation and small to moderate right pleural effusion again noted both slightly improved. Some of the pleural effusion appears to be loculated la terally. I don't see a pneumothorax. Left lung remains clear. Mild cardiomegaly is stable. CONCLUSION: Modestly improved consolidation and pleural effusion at the right base. Right chest tube remains in p lace. No pneumothorax. Ty Estes MD on August 22, 2017 at 12:09 Board Certified Radiologist. This report was verified electronically.
[2017-08-22] MEDS: MAGNESIUM HYDROXIDE SUSP 30 ML CUP PO SCH (20:47)
[2017-08-22] MEDS: REMOVE OLD PATCH-LIDOCAINE T-DERMAL SCH (20:47)
[2017-08-22] MEDS ORDERED: IOHEXOL 350 MG/ML 10 ML VIAL (for RAD DIAG) IVCONTRAST ONE (20:50)
--- NOTE | 2017-08-22 21:02 | RADRPT ---
EXAM DATE/TIME: 08/22/2017 20:25 [facility] COMPARISON: CT THORAX W CONTRAST, August 07, 2017, 22:58. INDICATIONS : Evalaute for pneumothorax. IV CONTRAST: 75 cc Omnipaque 350 (iohexol) IV RADIATION DOSE: 10.39 CTDIvol (mGy) MEDICAL HISTORY : Hernia, hiatal. SURGICAL HISTORY : None. ENCOUNTER: Subsequent ACUITY: 4 - 6 days PAIN SCALE: 6/10 LOCATION: Bilateral chest TECHNIQUE: Volumetric scanning of the chest was performed. Using automated exposure control and adjustment of t he mA and/or kV according to patient size, radiation dose was kept as low as reasonably achievable to obtain optimal diagnostic quality images. DICOM format image data is available electronically for review and comparison. Follow-up recommendations for detected pulmonary nodules are based at a minimum on nodule size and pa tient risk factors according to Fleischner Society Guidelines. FINDINGS: There is mild groundglass and draped in the left upper lobe, consolidation in right upper lobe rn clinical coordinator iorly, dense consolidation and atelectasis in the right lower lobe with air bronchogram formation, a pigtail catheter in the right posterior lung base, and a loculated effusion at the right lung base is not seen. There is decreased attenuation of the right upper pole kidney medially consistent with kno wn right renal injury. Mild perinephric stranding.. Mild perinephric stranding is seen. There is a sm all pericardial effusion identified. Multiple right-sided rib fractures are again seen. CONCLUSION: Interval development of dense consolidation in the right lower lobe with atelectasis and loculated ef fusion, pigtail catheter in place. Also noted is a pericardial effusion. Jake Bettencourt MD on August 22, 2017 at 20:56 Board Certified Radiologist. This report was verified electronically.
[2017-08-23] VITALS (14 sets, daily range): BP systolic 118–128; BP diastolic 58–69; PULSE 76–104; RESP 16–23; TEMP 97.2–102.3; O2SAT 94–100
[2017-08-23] MEDS: oxyCODONE/ACETAMINOPHEN 10 MG/325 MG TAB PO PRN ×6 (02:43→23:52)
[2017-08-23] MEDS: RESP: ALBUTEROL 2.5 MG/IPRATROPIUM 0.5 MG NEB (SCH) NEB ×4 (03:44→21:47)
[2017-08-23] MEDS ORDERED: PHARMACY ORDERED LAB ONE (03:45)
[2017-08-23] MEDS: VANCOMYCIN INJ 2,250 MG in SODIUM CHLORID 0.9% 500 ML INJ 500 ML IV SCH (04:25)
[2017-08-23] MEDS: GABAPENTIN 300 MG CAP PO SCH ×3 (04:28→21:27)
[2017-08-23] MEDS: METHOCARBAMOL 500 MG TAB PO SCH ×3 (04:28→21:27)
[2017-08-23 05:54] LABS: MEAN CELL VOLUME 90.6 FL (80.0-100.0); MEAN CORPUSCULAR HEMOGLOBIN 29.8 PG (27.0-34.0); MEAN CORPUSCULAR HGB CONC 32.9 % (32.0-36.0); PLATELET COUNT 600 TH/MM3 (150-450); RED BLOOD COUNT 3.31 MIL/MM3 (4.50-5.90); RED CELL DISTRIBUTION WIDTH 14.7 % (11.6-17.2); REVIEW FLAG FINAL; WHITE BLOOD COUNT 11.2 TH/MM3 (4.0-11.0)
[2017-08-23 06:19] LABS: BICARBONATE 28.8 MEQ/L (21.0-32.0); MAGNESIUM 2.1 MG/DL (1.5-2.5); POTASSIUM 3.7 MEQ/L (3.5-5.1)
[2017-08-23 06:20] LABS: VANCOMYCIN TROUGH 23.1 MCG/ML (5.0-10.0)
[2017-08-23] MEDS: REMOVE OLD DURAGESIC (FENTANYL) PATCH T-DERMAL SCH (08:00)
[2017-08-23] MEDS: DOCUSATE SODIUM 50 MG/SENNA 8.6 MG TAB PO SCH ×2 (08:05→20:39)
[2017-08-23] MEDS: LIDOCAINE HCL 5% PATCH T-DERMAL SCH (08:05)
[2017-08-23] MEDS: DILTIAZEM-CD 180 MG CAP ER PO SCH (08:05)
[2017-08-23] MEDS: SOTALOL HCL 80 MG TAB PO SCH ×2 (08:06→20:40)
[2017-08-23] MEDS: fentaNYL 50 MCG/HR PATCH T-DERMAL SCH (08:06)
[2017-08-23] MEDS: ASPIRIN EC 81 MG TABEC PO SCH (08:07)
[2017-08-23] MEDS: SODIUM CHLORIDE 0.9% FLUSH 10 ML FLUSH IV FLUSH SCH ×2 (08:08→21:00)
[2017-08-23] MEDS: LACTULOSE SYRUP 20 GM/30 ML CUP PO SCH (08:08)
[2017-08-23] MEDS: ENOXAPARIN SODIUM 40 MG/0.4 ML SYRINGE SQ SCH (08:08)
--- NOTE | 2017-08-23 08:09 | PD.CARD.PN ---
Subjective Subjective Remarks Mild dyspnea. Right lower chest pain only with cough, deep inspiration. No palpitations. Mild constant lightheadedness. Objective Medications Item Value Date Time Diltiazem HCl 180 mg 08/19/17 1600 (Cardizem Cd) DAILY/PO 08/22/17 0957 Aspirin 81 mg 08/18/17 1400 (Ecotrin Ec) DAILY/PO 08/22/17 0900 Sotalol HCl 80 mg 08/18/17 0930 (Betapace) Q12HR/PO 08/22/172045 Enoxaparin Sodium 30 mg 08/15/17 2100 (Lovenox Inj) BID/SQ 08/22/172045 Current Medications Medications (Trade) Dose Ordered Sig/Radha Route Start Time Stop Time Status Last Admin (NS Flush) 2 ml UNSCH PRN IV FLUSH 08/07/17 23:45 (NS Flush) 2 ml BID IV FLUSH 08/08/17 09:00 08/22/17 20:47 (Zofran Inj) 4 mg Q6H PRN IV PUSH 08/07/17 23:45 08/18/17 21:20 (Narcan Inj) 0.4 mg UNSCH PRN IV PUSH 08/07/17 23:45 (Lidoderm 5% Patch.12 Hr) 1 patch DAILY T-DERMAL 08/08/17 09:00 08/22/17 09:01 Miscellaneous Information 1 Q24H T-DERMAL 08/08/17 21:00 08/22/17 20:47 (Percocet 5-325 Mg) 1 tab Q4H PRN PO 08/08/17 10:00 08/10/17 13:49 (Percocet 10-325 Mg) 1 tab Q4H PRN PO 08/08/17 10:00 08/23/17 02:43 (Lamar-Colace) 2 tab BID PO 08/08/17 10:00 08/22/17 09:00 (Robaxin) 500 mg Q8HR PO 08/08/17 14:00 Future hold 08/23/17 04:28 (Lactulose Liq) 30 ml DAILY PO 08/08/17 15:30 08/22/17 09:00 (Milk Of Magnesia Liq) 30 ml HS PO 08/08/17 21:00 08/16/17 21:14 (Neurontin) 300 mg Q8HR PO 08/09/17 10:00 08/23/17 04:28 (Lovenox Inj) 30 mg BID SQ 08/15/17 21:00 08/22/17 20:46 (Betapace) 80 mg Q12HR PO 08/18/17 09:30 08/22/17 20:46 (Ecotrin Ec) 81 mg DAILY PO 08/18/17 14:00 Future hold 08/22/17 09:00 Pharmacy Profile Note 0 ml @ 0 mls/hr UNSCH OTHER 08/18/17 15:00 (Cardizem Cd) 180 mg DAILY PO 08/19/17 16:00 08/22/17 09:57 (Tylenol) 650 mg Q4H PRN PO 08/19/17 09:45 (Duragesic 50 Mcg Patch.72 Hr) 1 patch Q3D T-DERMAL 08/20/17 08:00 08/20/17 08:00 Miscellaneous Information 1 Q3D T-DERMAL 08/23/17 08:00 (Duoneb Neb) 1 ampule Q6HR NEB NEB 08/20/17 22:00 08/21/17 22:14 (Albuterol Neb) 2.5 mg Q2HR NEB PRN NEB 08/20/17 16:45 Vancomycin HCl 2250 mg/Sodium Chloride 522.5 ml @ 257.5 mls/ hr Q8H IV 08/22/17 12:00 08/23/17 04:25 Vital Signs / I&O Vital Signs Date Time Temp Pulse Resp B/P (MAP) Pulse Ox O2 Delivery O2 Flow Rate FiO2 08/23/17 06:00 89 08/23/17 04:00 81 08/23/17 04:00 97.8 81 16 128/61 (83) 95 08/23/17 02:00 86 08/23/17 00:00 87 08/23/17 00:00 98.8 87 16 122/58 (79) 95 08/22/17 22:00 89 08/22/17 21:36 95 Nasal Cannula 3.00 08/22/17 20:00 97 08/22/17 20:00 98.9 86 25 118/59 (78) 94 08/22/17 20:00 94 Nasal Cannula 2.00 08/22/17 18:00 95 08/22/17 16:00 83 08/22/17 16:00 98.3 85 22 126/59 (81) 98 08/22/17 14:00 87 08/22/17 12:00 83 08/22/17 12:00 98.5 83 19 125/63 (83) 97 08/22/17 10:00 90 I/O 08/22/17 08/22/17 08/22/17 08/23/17 08/23/17 08/23/17 07:00 15:00 23:00 07:00 15:00 23:00 Intake Total 480 ml 522 ml 2000 ml 480 ml Output Total 1712 ml 1205 ml 1100 ml Balance -1232 ml 522 ml 795 ml -620 ml Intake Oral 480 ml 1500 ml 480 ml IV Total 522 ml 500 ml Output Urine Total 1700 ml 1200 ml 1100 ml Chest Tube Drainage Total 12 ml 5 ml 0 ml # Voids 2 # Bowel Movements 0 0 Physical Exam GENERAL: Well developed, well nourished. No acute distress. HEENT: Jugular venous pressure is normal. CHEST: Lungs clear to auscultation anteriorly. CARDIAC: Regular rate and rhythm without S3, S4, or murmur. Possible 2 component rub audible at left lower sternal border. ABDOMEN: Soft, nontender, no hepatosplenomegaly. Bowel sounds present. EXTREMITIES: No clubbing, cyanosis, or edema. Laboratory Laboratory Tests Test 08/23/17 04:03 White Blood Count 11.2 TH/MM3 Red Blood Count 3.31 MIL/MM3 Hemoglobin 9.9 GM/DL Hematocrit 30.0 % Mean Corpuscular Volume 90.6 FL Mean Corpuscular Hemoglobin 29.8 PG Mean Corpuscular Hemoglobin Concent 32.9 % Red Cell Distribution Width 14.7 % Platelet Count 600 TH/MM3 Mean Platelet Volume 6.9 FL Blood Urea Nitrogen 10 MG/DL Creatinine 0.89 MG/DL Random Glucose 93 MG/DL Calcium Level 8.0 MG/DL Phosphorus Level 3.1 MG/DL Magnesium Level 2.1 MG/DL Sodium Level 137 MEQ/L Potassium Level 3.7 MEQ/L Chloride Level 100 MEQ/L Carbon Dioxide Level 28.8 MEQ/L Anion Gap 8 MEQ/L Estimat Glomerular Filtration Rate 95 ML/MIN Vancomycin Level Trough 23.1 MCG/ML Imaging Last [address] 08/22/171999 Signed Impressions: Service Date/Time: Tuesday, August 22, 2017 20:25 - CONCLUSION: Interval development of dense consolidation in the right lower lobe with atelectasis and loculated effusion, pigtail catheter in place. Also noted is a pericardial effusion. Jake Bettencourt MD Assessment and Plan Problem List: (1) Paroxysmal atrial fibrillation ICD Codes: I48.0 - Paroxysmal atrial fibrillation Status: Acute Plan: Brief, asymptomatic atrial fibrillation yesterday am. Back in NSR. Etiology of atrial dysrhythmias possibly low grade pericarditis. He does have a possible rub on exam as well as small pericardial effusion on echo. His thromboembolic risk is low. REC continue sotalol, aspirin, oral Cardizem will f/u as needed (2) Paroxysmal atrial flutter ICD Codes: I48.92 - Unspecified atrial flutter Status: Acute Plan: Transient atrial flutter seen on monitoring last week. NSR this morning. Continue treatment as for paroxysmal atrial fibrillation. Code Status full code Discussed Condition With patient Oscar Null MD Aug 23, 2017 08:09
[2017-08-23] MEDS ORDERED: PHENOL 1.4% SOLN 180 ML BTL OROPHARYNG PRN (09:30)
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
--- NOTE | 2017-08-23 13:41 | HHI.CCPN ---
Subjective Brief History Contusion and laceration of the right kidney upper pole with retroperitoneal bleeding but no active bleeding at this time. Right lobe liver contusion with some perihepatic blood, and serial rib fractures with a very tiny pneumothorax which is sort of in the folds of the pleura as the hilum of the bronchi comes out of the mediastinum. The patient will be now placed in the ICU. Majority of the patient's will not require any further intervention and the the bleeding and are at peritoneal space will be self-contained while minority of patients may need some sort of endovascular embolization our intervention 24 Hour Review/Hospital Course Patient has been stable since the arrival Bruising over the right orbital rim is decreased Neurologic the patient is fully intact Placed several braxton and the laceration of the posterior scalp Bilateral breath sounds and no increase in the mediastinal or pleural air so for all practical purposes this is sealed of Abdomen is soft active bowel sounds Will start patient on diet Stop serial H&H 08/10/17 Patient transferred yesterday back to the ICU because of the severe pain and inability of floor to take care of him Patient is awake alert and oriented Right hemothorax had increased over the few days the patient will see her in the hospital and therefore right chest tube was placed and about 700 cc old blood obtained This improved patient's pulmonary function is breathing much easier at this point 08/18/17 After patient developed rapid atrial fibrillation in the middle of the night to be transferred to the surgical ICU for Cardizem drip and beta blockers which cannot be given the floor His current surgical ICU and heart rate about 110 per minute. Patient on Cardizem drip and Betapace We will have cardiac echo because is not quite clear on patient developed A. fib Chest tube was removed yesterday and patient had no residual pneumothorax however now now has a small residual pneumothorax as well as firm consolidation of the right lower lobe Apparently pneumothorax occurred because nurse removed this morning the dressing and allow the air to enter the chest In the face of the fever will place patient on antibiotics and consult infectious disease Patient probably will not need another chest tube placed however if the pneumothorax enlarges while lace a small chest tube in radiology to expand the lung. My main problem is the fact the patient has an infiltrate in the right lower lobe which may well be pneumonia Cardiac consultation is greatly appreciated 08/19/17 Patient received IV Bolus of Cardizem overnight as well as 0.5mg IV Digoxin x1 for sustained HR in the 150s PO Cardizem started today by Cardiology CXR today shows stable PTX with dense RLL consolidation Still having fevers. Appreciate ID consult 08/20 off IV cardizem still on 5l O2 reviewed CT chest 08/19 with IR about 200-400cc of blood in the chest with lung consolidation-attempted CT drainage with only 6cc output WBC down to 22 08/21 WBC 14 3l O2 off cardizem may need decortication early next week-will d/w No output frpm CT 08/22 slight tacypnea today no CT output wbc 11 MRSA in thoracocentesis 08/23/17 Patient is gradually improving Bilateral breath sounds with decreased over the right base Patient has a large right lower lobe atelectatic area however he has been coughing very well and suddenly there large mucous plugs coming up Small right chest and loculated area has been treated with a pigtail catheter and the Dr. Lopez will inject some TPA to this site to loosen up the clots I have considered the bronchoscopy in this gentleman in face of his right lower lobe infiltrate but does discussing it I do not believe that this was going to benefit the patient weighing off the the risk of intubation sedation and such Patient encouraged to deep breathe and cough Tolerates diet well MRSA in the pleural fluid in treated adequately Objective Vital Signs Date Time Temp Pulse Resp B/P (MAP) Pulse Ox O2 Delivery O2 Flow Rate FiO2 08/23/17 12:00 83 08/23/17 12:00 99.1 16 122/59 (80) 95 08/23/17 07:10 Nasal Cannula 3.00 Intake and Output 08/23/17 08/23/17 08/24/17 08:00 16:00 00:00 Intake Total 480 ml Output Total 1100 ml Balance -620 ml Result Diagram: 08/23/17 0403 08/23/17 0403 Other Results Microbiology Date/Time Source Procedure Growth Status 08/20/17 15:40 Fluid Thoracic Fluid (Thoracentesis) Gram Stain - Final Complete 08/20/17 15:40 Body Fluid Culture - Final S. Aureus Mrsa Complete Imaging Last [address] 08/22/171999 Signed Impressions: Service Date/Time: Tuesday, August 22, 2017 20:25 - CONCLUSION: Interval development of dense consolidation in the right lower lobe with atelectasis and loculated effusion, pigtail catheter in place. Also noted is a pericardial effusion. Jake Bettencourt MD Exam [employer]CTIONAL [employer]PORAL Awake alert oriented Hemodynamic/Cardiac Hemodynamically stable Pulmonary/Respiratory Bilateral breath sounds with decreased over the right base Patient has a large right lower lobe atelectatic area however he has been coughing very well and suddenly there large mucous plugs coming up Small right chest and loculated area has been treated with a pigtail catheter and the Dr. Lopez will inject some TPA to this site to loosen up the clots I have considered the bronchoscopy in this gentleman in face of his right lower lobe infiltrate but does discussing it I do not believe that this was going to benefit the patient weighing off the the risk of intubation sedation and such Patient encouraged to deep breathe and cough Tolerates diet well MRSA in the pleural fluid in treated adequately Abdomen/GI Nutrition Abdomen soft tolerates diet well Renal/I&O Preserved renal function Hematologic Hematologically stable and leukocytosis abated Assessment and Plan Plan INJURIES: Scalp lac Nasal bone fx PNEUMOMEDIASTINUM RIGHT rib fx (7-11) w/ tiny PTX RIGHT lower lobe PNEUMATOCELE BILAT lung contusions RIGHT kidney fx w/ hemorrhage LIVER contusion RIGHT rib fx w/small PTX, BILAT lung contusions, RIGHT JACKIE 08/09: S/P RIGHT CT placed for JACKIE Chest x-ray stable PTX with dense RLL consolidation Pain control may need decortication right chest Aggressive pulmonary toileting Encourage OOB- PT ordered Lovenox Leukocytosis ID consulted Broad spectrum abx PNA RIGHT kidney fx w/ hemorrhage, LIVER contusion Supportive care H&H stable LFTS improving 08/09: CT abdomen- kidney hematoma smaller, liver contusion stable Pain control Bowel regimen New onset Afib Cardiology consulted Echo- small pericardial effusion, no tamponade. EF > 70% Cardizem PO Betapace ASA Converted to SR . WBC improving-more SOB today however repeat CT chest npo after MN for possible decortication Plan of care discussed with patient at bedside. Case management consulted to assist with DC planning. Attestation Critical care 35 Shan Garza MD Aug 23, 2017 13:41
[2017-08-23] MEDS ORDERED: ALTEPLASE RECOMBINANT 2 MG VIAL ONE (14:49)
[2017-08-23] MEDS ORDERED: ALTEPLASE RECOMBINANT 2 MG VIAL OTHER ONE (15:00)
[2017-08-23] MEDS ORDERED: ALTEPLASE RECOMBINANT 100 MG VIAL IV ONE (15:00)
[2017-08-23] MEDS ORDERED: ALTEPLASE RECOMBINANT 2 MG VIAL IV ONE (15:00)
[2017-08-23] MEDS: BACITRACIN TOP OINT 15 GM TUBE TOPICAL SCH (15:41)
[2017-08-23] MEDS: VANCOMYCIN INJ 2,500 MG in SODIUM CHLORID 0.9% 500 ML INJ 500 ML IV SCH (17:52)
[2017-08-23] MEDS: ACETAMINOPHEN 325 MG TAB PO PRN (19:59)
[2017-08-23] MEDS: ENOXAPARIN SODIUM 30 MG/0.3 ML SYRINGE SQ SCH (20:41)
[2017-08-23] MEDS: MAGNESIUM HYDROXIDE SUSP 30 ML CUP PO SCH (21:00)
[2017-08-23] MEDS: REMOVE OLD PATCH-LIDOCAINE T-DERMAL SCH (21:00)
[2017-08-24] VITALS (15 sets, daily range): BP systolic 107–140; BP diastolic 56–65; PULSE 80–96; RESP 16–24; TEMP 98.4–99.2; O2SAT 93–100
[2017-08-24] MEDS: RESP: ALBUTEROL 2.5 MG/IPRATROPIUM 0.5 MG NEB (SCH) NEB ×5 (04:00→21:18)
[2017-08-24] MEDS: oxyCODONE/ACETAMINOPHEN 10 MG/325 MG TAB PO PRN ×4 (04:35→20:16)
[2017-08-24] MEDS: METHOCARBAMOL 500 MG TAB PO SCH ×3 (05:07→21:20)
[2017-08-24] MEDS: GABAPENTIN 300 MG CAP PO SCH ×3 (05:07→21:20)
[2017-08-24] MEDS: VANCOMYCIN INJ 2,500 MG in SODIUM CHLORID 0.9% 500 ML INJ 500 ML IV SCH ×2 (05:08→17:24)
[2017-08-24 05:11] LABS: AUTOMATED NEUTROPHIL # 12.7 TH/MM3 (1.8-7.7); BASOPHIL % 0.3 % (0.0-2.0); EOSINOPHIL # 0.5 TH/MM3 (0-0.4); EOSINOPHIL % 2.9 % (0.0-4.0); HEMATOCRIT 33.5 % (39.0-51.0); LYMPH % 7.8 % (9.0-44.0); LYMPHOCYTE # 1.2 TH/MM3 (1.0-4.8); MEAN CELL VOLUME 90.5 FL (80.0-100.0); MEAN CORPUSCULAR HEMOGLOBIN 29.1 PG (27.0-34.0); MEAN CORPUSCULAR HGB CONC 32.2 % (32.0-36.0); MONO % 9.3 % (0.0-8.0); NEUT % 79.7 % (16.0-70.0); PLATELET COUNT 659 TH/MM3 (150-450); RED CELL DISTRIBUTION WIDTH 14.8 % (11.6-17.2)
[2017-08-24 05:15] LABS: HEMO FLAGS AUTO DIFF
[2017-08-24 05:40] LABS: ANION GAP 8 MEQ/L (5-15); AST (GOT) 32 U/L (15-37); BICARBONATE 29.7 MEQ/L (21.0-32.0); BLOOD UREA NITROGEN 11 MG/DL (7-18); CHLORIDE 99 MEQ/L (98-107); GLOMERULAR FILTRATION RATE 79 ML/MIN (>89); POTASSIUM 4.2 MEQ/L (3.5-5.1); SODIUM (NA) 137 MEQ/L (136-145)
[2017-08-24 05:44] LABS: ALKALINE PHOSPHATASE 138 U/L (45-117); ALT (GPT) 61 U/L (12-78); TOTAL BILIRUBIN ADULT 0.6 MG/DL (0.2-1.0)
--- NOTE | 2017-08-24 05:58 | RADRPT ---
EXAM DATE/TIME: 08/24/2017 05:07 [facility] COMPARISON: CHEST SINGLE AP, August 22, 2017, 11:30. INDICATIONS : Chest pain. MEDICAL HISTORY : Hiatal hernia. Right rib fractures, Pnuemothorax, Right kidney injury. SURGICAL HISTORY : None. ENCOUNTER: Initial ACUITY: 1 day PAIN SCORE: Non-responsive. LOCATION: Bilateral chest FINDINGS: The cardiac silhouette is enlarged in transverse diameter. A right chest tube is in place. There is n o evidence of pneumothorax. Moderate right effusion is present. The left lung is free of acute parenc hymal opacity. CONCLUSION: 1. There is no evidence of pneumothorax. 2. Moderate right effusion Henry Silva MD on August 24, 2017 at 5:56 Board Certified Radiologist. This report was verified electronically.
[2017-08-24 06:50] LABS: BANDS 8 % (0-6); EOSINOPHILS 2 % (0-4); METAMYELOCYTES 1 % (0-1); MYELOCYTES 3 % (0-0); NEUTROPHIL # MANUAL DIFF 13.8 TH/MM3 (1.8-7.7); PLATELET ESTIMATE SMEAR HIGH (NORMAL); PLATELET MORPHOLOGY NORMAL (NORMAL); POLYS (SEG NEUTROPHILS) 74 % (16-70); SCAN/DIFF FINAL DIFF MANUAL; WBC DIFF SAMPLE 100
[2017-08-24 06:51] LABS: POLYCHROMASIA 2.2 % (0.0-1.9)
[2017-08-24] MEDS: ENOXAPARIN SODIUM 30 MG/0.3 ML SYRINGE SQ SCH ×2 (08:42→20:17)
[2017-08-24] MEDS: LIDOCAINE HCL 5% PATCH T-DERMAL SCH (08:43)
[2017-08-24] MEDS: DILTIAZEM-CD 180 MG CAP ER PO SCH (08:43)
[2017-08-24] MEDS: LACTULOSE SYRUP 20 GM/30 ML CUP PO SCH (08:43)
[2017-08-24] MEDS: ASPIRIN EC 81 MG TABEC PO SCH (08:43)
[2017-08-24] MEDS: DOCUSATE SODIUM 50 MG/SENNA 8.6 MG TAB PO SCH ×2 (08:44→20:17)
[2017-08-24] MEDS: SODIUM CHLORIDE 0.9% FLUSH 10 ML FLUSH IV FLUSH SCH ×2 (09:00→20:18)
[2017-08-24] MEDS: SOTALOL HCL 80 MG TAB PO SCH ×2 (09:27→20:17)
--- NOTE | 2017-08-24 14:23 | HHI.CCPN ---
Subjective Brief History Contusion and laceration of the right kidney upper pole with retroperitoneal bleeding but no active bleeding at this time. Right lobe liver contusion with some perihepatic blood, and serial rib fractures with a very tiny pneumothorax which is sort of in the folds of the pleura as the hilum of the bronchi comes out of the mediastinum. The patient will be now placed in the ICU. Majority of the patient's will not require any further intervention and the the bleeding and are at peritoneal space will be self-contained while minority of patients may need some sort of endovascular embolization our intervention 24 Hour Review/Hospital Course Patient has been stable since the arrival Bruising over the right orbital rim is decreased Neurologic the patient is fully intact Placed several braxton and the laceration of the posterior scalp Bilateral breath sounds and no increase in the mediastinal or pleural air so for all practical purposes this is sealed of Abdomen is soft active bowel sounds Will start patient on diet Stop serial H&H 08/10/17 Patient transferred yesterday back to the ICU because of the severe pain and inability of floor to take care of him Patient is awake alert and oriented Right hemothorax had increased over the few days the patient will see her in the hospital and therefore right chest tube was placed and about 700 cc old blood obtained This improved patient's pulmonary function is breathing much easier at this point 08/18/17 After patient developed rapid atrial fibrillation in the middle of the night to be transferred to the surgical ICU for Cardizem drip and beta blockers which cannot be given the floor His current surgical ICU and heart rate about 110 per minute. Patient on Cardizem drip and Betapace We will have cardiac echo because is not quite clear on patient developed A. fib Chest tube was removed yesterday and patient had no residual pneumothorax however now now has a small residual pneumothorax as well as firm consolidation of the right lower lobe Apparently pneumothorax occurred because nurse removed this morning the dressing and allow the air to enter the chest In the face of the fever will place patient on antibiotics and consult infectious disease Patient probably will not need another chest tube placed however if the pneumothorax enlarges while lace a small chest tube in radiology to expand the lung. My main problem is the fact the patient has an infiltrate in the right lower lobe which may well be pneumonia Cardiac consultation is greatly appreciated 08/19/17 Patient received IV Bolus of Cardizem overnight as well as 0.5mg IV Digoxin x1 for sustained HR in the 150s PO Cardizem started today by Cardiology CXR today shows stable PTX with dense RLL consolidation Still having fevers. Appreciate ID consult 08/20 off IV cardizem still on 5l O2 reviewed CT chest 08/19 with IR about 200-400cc of blood in the chest with lung consolidation-attempted CT drainage with only 6cc output WBC down to 22 08/21 WBC 14 3l O2 off cardizem may need decortication early next week-will d/w No output frpm CT 08/22 slight tacypnea today no CT output wbc 11 MRSA in thoracocentesis 08/23/17 Patient is gradually improving Bilateral breath sounds with decreased over the right base Patient has a large right lower lobe atelectatic area however he has been coughing very well and suddenly there large mucous plugs coming up Small right chest and loculated area has been treated with a pigtail catheter and the Dr. Lopez will inject some TPA to this site to loosen up the clots I have considered the bronchoscopy in this gentleman in face of his right lower lobe infiltrate but does discussing it I do not believe that this was going to benefit the patient weighing off the the risk of intubation sedation and such Patient encouraged to deep breathe and cough Tolerates diet well MRSA in the pleural fluid in treated adequately 08/24/17 Patient is awake alert and oriented He has been working on breathing and coughing or last 24 hours and has coughed up fair amount of thick mucous material Bilateral breath sounds Had TPA installed into right lower lobe adjacent collection and now increase output from the chest tube in form of liquefied blood Moderate pleural effusion remains and hopefully will drain with instillation of TPA At this point we'll hold off on any surgical procedure Objective Vital Signs Date Time Temp Pulse Resp B/P (MAP) Pulse Ox O2 Delivery O2 Flow Rate FiO2 08/24/17 12:00 99.0 81 18 115/63 (80) 94 08/24/17 09:46 Nasal Cannula 08/24/17 07:00 2.00 Intake and Output 08/24/17 08/24/17 08/25/17 08:00 16:00 00:00 Intake Total 960 ml Output Total 1135 ml Balance -175 ml Result Diagram: 08/24/17 0418 08/24/17417 Imaging Last 24 hours Impressions Chest X-Ray 08/24/17 0600 Signed Impressions: Service Date/Time: Thursday, August 24, 2017 05:07 - CONCLUSION: 1. There is no evidence of pneumothorax. 2. Moderate right effusion Henry Silva MD Exam [employer]PL[employer] Awake alert oriented Hemodynamic/Cardiac Hemodynamically stable Pulmonary/Respiratory Bilateral breath sounds and as above noted tPA lysis of right supraphrenic collection Abdomen/GI Nutrition Abdomen soft diet tolerated Renal/I&O Preserved renal function Assessment and Plan Plan INJURIES: Scalp lac Nasal bone fx PNEUMOMEDIASTINUM RIGHT rib fx (7-11) w/ tiny PTX RIGHT lower lobe PNEUMATOCELE BILAT lung contusions RIGHT kidney fx w/ hemorrhage LIVER contusion RIGHT rib fx w/small PTX, BILAT lung contusions, RIGHT JACKIE 08/09: S/P RIGHT CT placed for JACKIE Chest x-ray stable PTX with dense RLL consolidation Pain control may need decortication right chest Aggressive pulmonary toileting Encourage OOB- PT ordered Lovenox Leukocytosis ID consulted Broad spectrum abx PNA RIGHT kidney fx w/ hemorrhage, LIVER contusion Supportive care H&H stable LFTS improving 08/09: CT abdomen- kidney hematoma smaller, liver contusion stable Pain control Bowel regimen New onset Afib Cardiology consulted Echo- small pericardial effusion, no tamponade. EF > 70% Cardizem PO Betapace ASA Converted to SR . WBC improving-more SOB today however repeat CT chest npo after MN for possible decortication Plan of care discussed with patient at bedside. Case management consulted to assist with DC planning. Attestation Patient has been transferred out of the ICU yesterday however no beds are available and his care does not require ICU stay Critical care not discharged in face of the above Shan Garza MD Aug 24, 2017 14:23
--- NOTE | 2017-08-24 16:22 | HHI.PR ---
Subjective Remarks alert no sob Objective Vital Signs Date Time Temp Pulse Resp B/P (MAP) Pulse Ox O2 Delivery O2 Flow Rate FiO2 08/24/17 16:00 86 08/24/17 14:18 19 08/24/17 14:00 86 08/24/17 12:00 99.0 81 18 115/63 (80) 94 08/24/17 12:00 81 08/24/17 10:00 94 08/24/17 09:46 93 Nasal Cannula 08/24/17 08:00 96 08/24/17 08:00 98.7 86 19 107/60 (76) 96 08/24/17 08:00 96 08/24/17 07:00 97 Nasal Cannula 2.00 08/24/17 06:00 83 08/24/17 04:00 98.9 86 18 122/57 (78) 94 08/24/17 04:00 88 08/24/17 02:00 84 08/24/17 00:00 84 08/24/17 00:00 98.8 84 18 140/65 (90) 100 08/23/17 22:00 99.2 08/23/17 22:00 88 08/23/17 21:48 96 Nasal Cannula 2.00 08/23/17 20:00 104 08/23/17 20:00 102.3 104 21 122/58 (79) 94 08/23/17 19:00 96 Nasal Cannula 2.00 08/23/17 18:00 98 I/O 08/23/17 08/23/17 08/23/17 08/24/17 08/24/17 08/24/17 07:00 15:00 23:00 07:00 15:00 23:00 Intake Total 480 ml 926 ml 960 ml Output Total 1100 ml 4 ml 1135 ml Balance -620 ml 922 ml -175 ml Intake Oral 480 ml 420 ml 960 ml IV Total 506 ml Output Urine Total 1100 ml 925 ml Stool Total 4 ml Chest Tube Drainage Total 0 ml 210 ml # Voids 2 # Bowel Movements 0 1 Result Diagram: 08/24/178 08/24/17417 Objective Remarks GENERAL: SKIN: Warm and dry. 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 Normocephalic. EYES: Pupils equal and round. No scleral icterus. No injection or drainage. ENT: No nasal bleeding or discharge. Mucous membranes pink and moist. NECK: Trachea midline. No JVD. CARDIOVASCULAR: Regular rate and rhythm. RESPIRATORY: No accessory muscle use. decrease breath sounds right base GASTROINTESTINAL: Abdomen soft, non-tender, nondistended. Hepatic and splenic margins not palpable. MUSCULOSKELETAL: Extremities without clubbing, cyanosis, or edema. No obvious deformities. NEUROLOGICAL: Awake and alert. No obvious cranial nerve deficits. Motor grossly within normal limits. Five out of 5 muscle strength in the arms and legs. Normal speech. PSYCHIATRIC: Appropriate mood and affect; insight and judgment normal. Assessment and Plan Assessment and Plan right pleural effusion CT IN PLACE ? PNEUMONIA PLAN O2 NEEDED PULM TOILET F/U CXRAY Clara Elizabeth MD Aug 24, 2017 16:22
[2017-08-24] MEDS: MAGNESIUM HYDROXIDE SUSP 30 ML CUP PO SCH (20:19)
[2017-08-24] MEDS: REMOVE OLD PATCH-LIDOCAINE T-DERMAL SCH (21:00)
[2017-08-25] VITALS (10 sets, daily range): BP systolic 107–121; BP diastolic 56–70; PULSE 78–99; RESP 16–25; TEMP 98.9–99.1; O2SAT 92–100
[2017-08-25] MEDS: oxyCODONE/ACETAMINOPHEN 10 MG/325 MG TAB PO PRN ×5 (02:02→22:49)
[2017-08-25 05:01] LABS: AUTOMATED NEUTROPHIL # 8.6 TH/MM3 (1.8-7.7); BASOPHIL # 0.1 TH/MM3 (0-0.2); BASOPHIL % 0.6 % (0.0-2.0); EOSINOPHIL # 0.5 TH/MM3 (0-0.4); EOSINOPHIL % 3.8 % (0.0-4.0); HEMATOCRIT 30.1 % (39.0-51.0); LYMPHOCYTE # 1.4 TH/MM3 (1.0-4.8); MEAN CELL VOLUME 89.7 FL (80.0-100.0); MEAN CORPUSCULAR HEMOGLOBIN 28.8 PG (27.0-34.0); MEAN CORPUSCULAR HGB CONC 32.1 % (32.0-36.0); MONO % 12.4 % (0.0-8.0); NEUT % 71.2 % (16.0-70.0); PLATELET COUNT 578 TH/MM3 (150-450); RED BLOOD COUNT 3.35 MIL/MM3 (4.50-5.90); RED CELL DISTRIBUTION WIDTH 14.7 % (11.6-17.2); WHITE BLOOD COUNT 12.1 TH/MM3 (4.0-11.0)
[2017-08-25] MEDS: METHOCARBAMOL 500 MG TAB PO SCH ×3 (05:19→21:33)
[2017-08-25] MEDS: GABAPENTIN 300 MG CAP PO SCH ×3 (05:19→21:33)
[2017-08-25 05:21] LABS: HEMO FLAGS AUTO DIFF
[2017-08-25 05:26] LABS: ANION GAP 8 MEQ/L (5-15); AST (GOT) 28 U/L (15-37); BICARBONATE 28.3 MEQ/L (21.0-32.0); BLOOD UREA NITROGEN 10 MG/DL (7-18); CHLORIDE 100 MEQ/L (98-107); GLOMERULAR FILTRATION RATE 82 ML/MIN (>89); POTASSIUM 4.3 MEQ/L (3.5-5.1); SODIUM (NA) 136 MEQ/L (136-145)
[2017-08-25 05:29] LABS: ALKALINE PHOSPHATASE 116 U/L (45-117); ALT (GPT) 54 U/L (12-78); TOTAL BILIRUBIN ADULT 0.5 MG/DL (0.2-1.0)
[2017-08-25] MEDS ORDERED: PHARMACY ORDERED LAB ONE (05:45)
[2017-08-25] MEDS: VANCOMYCIN INJ 2,500 MG in SODIUM CHLORID 0.9% 500 ML INJ 500 ML IV SCH ×2 (06:03→18:20)
--- NOTE | 2017-08-25 06:05 | RADRPT ---
EXAM DATE/TIME: 08/25/2017 04:36 [facility] COMPARISON: CHEST SINGLE AP, August 24, 2017, 5:07. INDICATIONS : Shortness of breath. MEDICAL HISTORY : Hiatal hernia. SURGICAL HISTORY : None. ENCOUNTER: Subsequent ACUITY: 2 weeks PAIN SCORE: Non-responsive. LOCATION: Bilateral chest FINDINGS: The cardiac silhouette is enlarged in transverse diameter. A moderate size right sided effusion is pr esent. Chest tube is present. There has been no significant change when compared to the prior exam. CONCLUSION: 1. Continued right-sided effusion unchanged Henry Silva MD on August 25, 2017 at 6:03 Board Certified Radiologist. This report was verified electronically.
[2017-08-25 06:44] LABS: BANDS 7 % (0-6); BLASTS 1 % (0-0); METAMYELOCYTES 2 % (0-1); MYELOCYTES 2 % (0-0); NEUTROPHIL # MANUAL DIFF 10.3 TH/MM3 (1.8-7.7); PLATELET ESTIMATE SMEAR HIGH (NORMAL); PLATELET MORPHOLOGY NORMAL (NORMAL); POLYS (SEG NEUTROPHILS) 74 % (16-70); SCAN/DIFF FINAL DIFF MANUAL; WBC DIFF SAMPLE 100
[2017-08-25] MEDS: LIDOCAINE HCL 5% PATCH T-DERMAL SCH (08:04)
[2017-08-25] MEDS: ASPIRIN EC 81 MG TABEC PO SCH (08:05)
[2017-08-25] MEDS: DILTIAZEM-CD 180 MG CAP ER PO SCH (08:05)
[2017-08-25] MEDS: DOCUSATE SODIUM 50 MG/SENNA 8.6 MG TAB PO SCH ×2 (08:05→21:00)
[2017-08-25] MEDS: SOTALOL HCL 80 MG TAB PO SCH ×2 (08:05→21:33)
[2017-08-25] MEDS: LACTULOSE SYRUP 20 GM/30 ML CUP PO SCH (08:06)
[2017-08-25] MEDS: SODIUM CHLORIDE 0.9% FLUSH 10 ML FLUSH IV FLUSH SCH ×2 (08:06→21:00)
[2017-08-25] MEDS: ENOXAPARIN SODIUM 30 MG/0.3 ML SYRINGE SQ SCH ×2 (08:06→21:33)
[2017-08-25] MEDS: BACITRACIN TOP OINT 15 GM TUBE TOPICAL SCH (08:07)
--- NOTE | 2017-08-25 10:11 | HHI.CCPN ---
Subjective Brief History Contusion and laceration of the right kidney upper pole with retroperitoneal bleeding but no active bleeding at this time. Right lobe liver contusion with some perihepatic blood, and serial rib fractures with a very tiny pneumothorax which is sort of in the folds of the pleura as the hilum of the bronchi comes out of the mediastinum. The patient will be now placed in the ICU. Majority of the patient's will not require any further intervention and the the bleeding and are at peritoneal space will be self-contained while minority of patients may need some sort of endovascular embolization our intervention 24 Hour Review/Hospital Course Patient has been stable since the arrival Bruising over the right orbital rim is decreased Neurologic the patient is fully intact Placed several braxton and the laceration of the posterior scalp Bilateral breath sounds and no increase in the mediastinal or pleural air so for all practical purposes this is sealed of Abdomen is soft active bowel sounds Will start patient on diet Stop serial H&H 08/10/17 Patient transferred yesterday back to the ICU because of the severe pain and inability of floor to take care of him Patient is awake alert and oriented Right hemothorax had increased over the few days the patient will see her in the hospital and therefore right chest tube was placed and about 700 cc old blood obtained This improved patient's pulmonary function is breathing much easier at this point 08/18/17 After patient developed rapid atrial fibrillation in the middle of the night to be transferred to the surgical ICU for Cardizem drip and beta blockers which cannot be given the floor His current surgical ICU and heart rate about 110 per minute. Patient on Cardizem drip and Betapace We will have cardiac echo because is not quite clear on patient developed A. fib Chest tube was removed yesterday and patient had no residual pneumothorax however now now has a small residual pneumothorax as well as firm consolidation of the right lower lobe Apparently pneumothorax occurred because nurse removed this morning the dressing and allow the air to enter the chest In the face of the fever will place patient on antibiotics and consult infectious disease Patient probably will not need another chest tube placed however if the pneumothorax enlarges while lace a small chest tube in radiology to expand the lung. My main problem is the fact the patient has an infiltrate in the right lower lobe which may well be pneumonia Cardiac consultation is greatly appreciated 08/19/17 Patient received IV Bolus of Cardizem overnight as well as 0.5mg IV Digoxin x1 for sustained HR in the 150s PO Cardizem started today by Cardiology CXR today shows stable PTX with dense RLL consolidation Still having fevers. Appreciate ID consult 08/20 off IV cardizem still on 5l O2 reviewed CT chest 08/19 with IR about 200-400cc of blood in the chest with lung consolidation-attempted CT drainage with only 6cc output WBC down to 22 08/21 WBC 14 3l O2 off cardizem may need decortication early next week-will d/w No output frpm CT 08/22 slight tacypnea today no CT output wbc 11 MRSA in thoracocentesis 08/23/17 Patient is gradually improving Bilateral breath sounds with decreased over the right base Patient has a large right lower lobe atelectatic area however he has been coughing very well and suddenly there large mucous plugs coming up Small right chest and loculated area has been treated with a pigtail catheter and the Dr. Lopez will inject some TPA to this site to loosen up the clots I have considered the bronchoscopy in this gentleman in face of his right lower lobe infiltrate but does discussing it I do not believe that this was going to benefit the patient weighing off the the risk of intubation sedation and such Patient encouraged to deep breathe and cough Tolerates diet well MRSA in the pleural fluid in treated adequately 08/24/17 Patient is awake alert and oriented He has been working on breathing and coughing or last 24 hours and has coughed up fair amount of thick mucous material Bilateral breath sounds Had TPA installed into right lower lobe adjacent collection and now increase output from the chest tube in form of liquefied blood Moderate pleural effusion remains and hopefully will drain with instillation of TPA At this point we'll hold off on any surgical procedure 08/25/17 Patient doing better White count on decline in leukocytosis resolving About 80 cc drainage from the chest tube which is serosanguineous Patient still has a shadow in lateral ascending line right which is probably a retained hematoma combined with pulmonary contusion and atelectasis we will repeat CAT scan in a few days and see if patient needs thoracoscopy or this can be resolved hopefully without it Taking deep breaths and coughing up much more effectively Objective Vital Signs Date Time Temp Pulse Resp B/P (MAP) Pulse Ox O2 Delivery O2 Flow Rate FiO2 08/25/17 07:00 95 Nasal Cannula 2.00 08/25/17 06:00 78 08/25/17 04:00 98.9 16 107/56 (73) Intake and Output 08/25/17 08/25/17 08/26/17 08:00 16:00 00:00 Intake Total 400 ml Output Total 900 ml Balance -500 ml Result Diagram: 08/25/17 0419 08/25/17 0413 Imaging Last 24 hours Impressions Chest X-Ray 08/25/17 0600 Signed Impressions: Service Date/Time: Friday, August 25, 2017 04:36 - CONCLUSION: 1. Continued right-sided effusion unchanged Henry Silva MD Exam [employer] Awake alert oriented Hemodynamic/Cardiac Hemodynamically stable Pulmonary/Respiratory As above noted pulmonary much improved but repeat CAT scan will show if patient might need thoracoscopy and evacuation of a retained hematoma or this is enough Assessment and Plan Plan INJURIES: Scalp lac Nasal bone fx PNEUMOMEDIASTINUM RIGHT rib fx (7-11) w/ tiny PTX RIGHT lower lobe PNEUMATOCELE BILAT lung contusions RIGHT kidney fx w/ hemorrhage LIVER contusion RIGHT rib fx w/small PTX, BILAT lung contusions, RIGHT JACKIE 08/09: S/P RIGHT CT placed for JACKIE Chest x-ray stable PTX with dense RLL consolidation Pain control may need decortication right chest Aggressive pulmonary toileting Encourage OOB- PT ordered Lovenox Leukocytosis ID consulted Broad spectrum abx PNA RIGHT kidney fx w/ hemorrhage, LIVER contusion Supportive care H&H stable LFTS improving 08/09: CT abdomen- kidney hematoma smaller, liver contusion stable Pain control Bowel regimen New onset Afib Cardiology consulted Echo- small pericardial effusion, no tamponade. EF > 70% Cardizem PO Betapace ASA Converted to SR . WBC improving-more SOB today however repeat CT chest npo after MN for possible decortication Plan of care discussed with patient at bedside. Case management consulted to assist with DC planning. Attestation Patient awaiting floor bed for last 2 days and no critical care time is claimed Shan Garza MD Aug 25, 2017 10:11
[2017-08-25] MEDS: RESP: ALBUTEROL 2.5 MG/IPRATROPIUM 0.5 MG NEB (SCH) NEB ×3 (11:59→20:39)
[2017-08-25] MEDS ORDERED: MIDAZOLAM HCL 2 MG/2 ML VIAL ONE ×2 (17:11→17:32)
--- NOTE | 2017-08-25 18:21 | RADRPT ---
EXAM DATE/TIME: 08/25/2017 18:24 [facility] COMPARISON: No previous studies available for comparison. INDICATIONS : Patient with history of infected right hemothorax and recent chest tube placement. A chest tube has b een retracted with the proximal sidehole now outside the chest cavity. Therefore, patient presents fo r chest tube replacement. MEDICAL HISTORY : Smoking hx R rib fx R JACKIE w/PNX Bilat lung contusion Hernia, hiatal SURGICAL HISTORY : N/A ENCOUNTER: Initial ACUITY: 2 weeks PAIN SCORE: 8/10 LOCATION: Right upper chest FLUORO TIME: 3.7 minutes IMAGE SERIES: 0 SEDATION TIME: 30 minutes MEDICATION(S): 1.) 4 mg midazolam (Versed) IV 2.) 200 mcg fentanyl (Sublimaze) IV DEVICE(S): 1.) non-locking catheter 24FR X 40CM EXPEL PROCEDURE : 1. Fluoroscopically guided chest tube exchange. 2. Conscious sedation with continuous EKG and oximetry monitoring. The risks, benefits and alternatives to the procedure were explained and verbal and written consent w as obtained. The site was prepped in sterile fashion. Full sterile technique was used, including ca p, mask, sterile gloves and gown and a large sterile sheet. Hand hygiene and 2% chlorhexidine and/or betadine/alcohol prep was utilized per protocol for cutaneous antisepsis. The skin and subcutaneous tissues were infiltrated with local anesthetic solution. With fluoroscopic guidance the previously placed chest tube was exchanged for the prescribed catheter . Post procedure imaging demonstrates satisfactory position of the tube. The catheter was sutured i n place and a Percu-Stay was applied. Conscious sedation was performed with the prescribed dosages and duration as above in the presence of an independent trained radiology nurse to assist in the monitoring of the patient. EKG and oximetry remained stable throughout the procedure. The patient tolerated the procedure well and there were no complications. The patient was sent to post anesthesia recovery in stable condition. CONCLUSION: Uncomplicated chest tube exchange as above. Mike Hoang MD on August 25, 2017 at 18:18 Board Certified Radiologist. This report was verified electronically.
--- NOTE | 2017-08-25 18:55 | HHI.PR ---
Subjective Remarks alert no sob Objective Vital Signs Date Time Temp Pulse Resp B/P (MAP) Pulse Ox O2 Delivery O2 Flow Rate FiO2 08/25/17 16:00 99.1 87 21 121/70 (87) 97 08/25/17 13:28 20 08/25/17 12:00 93 08/25/17 12:00 98.9 80 16 114/59 (77) 94 08/25/17 10:00 88 08/25/17 08:00 92 08/25/17 08:00 99.0 92 20 110/64 (79) 94 08/25/17 07:00 95 Nasal Cannula 2.00 08/25/17 06:00 78 08/25/17 04:00 98.9 78 16 107/56 (73) 93 08/25/17 04:00 78 08/25/17 02:00 79 08/25/17 00:00 79 08/25/17 00:00 99.0 79 18 112/57 (75) 95 08/24/17 22:00 90 08/24/17 21:18 95 Nasal Cannula 2.00 08/24/17 20:00 95 Nasal Cannula 2.00 08/24/17 20:00 96 08/24/17 20:00 99.2 96 24 120/57 (78) 95 I/O 08/24/17 08/24/17 08/24/17 08/25/17 08/25/17 08/25/17 07:00 15:00 23:00 07:00 15:00 23:00 Intake Total 960 ml 525 ml 1280 ml 400 ml 525 ml 600 ml Output Total 1135 ml 1025 ml 900 ml 60 ml Balance -175 ml 525 ml 255 ml -500 ml 525 ml 540 ml Intake Oral 960 ml 760 ml 400 ml 600 ml IV Total 525 ml 520 ml 525 ml Output Urine Total 925 ml 975 ml 900 ml Chest Tube Drainage Total 210 ml 50 ml 0 ml 60 ml # Voids 4 Result Diagram: 08/25/179 08/25/17412 Objective Remarks GENERAL: SKIN: Warm and dry. 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 Normocephalic. EYES: Pupils equal and round. No scleral icterus. No injection or drainage. ENT: No nasal bleeding or discharge. Mucous membranes pink and moist. NECK: Trachea midline. No JVD. CARDIOVASCULAR: Regular rate and rhythm. RESPIRATORY: No accessory muscle use. decrease breath sounds right base GASTROINTESTINAL: Abdomen soft, non-tender, nondistended. Hepatic and splenic margins not palpable. MUSCULOSKELETAL: Extremities without clubbing, cyanosis, or edema. No obvious deformities. NEUROLOGICAL: Awake and alert. No obvious cranial nerve deficits. Motor grossly within normal limits. Five out of 5 muscle strength in the arms and legs. Normal speech. PSYCHIATRIC: Appropriate mood and affect; insight and judgment normal. Assessment and Plan Assessment and Plan right RIB FX AND HEMOTHORAX CT IN PLACE , NO LEAK ? PNEUMONIA PLAN O2 NEEDED PULM TOILET F/U CXRAY Clara Elizabeth MD Aug 25, 2017 18:55
[2017-08-25] MEDS: REMOVE OLD PATCH-LIDOCAINE T-DERMAL SCH (21:00)
[2017-08-25] MEDS: MAGNESIUM HYDROXIDE SUSP 30 ML CUP PO SCH (21:00)
[2017-08-26] VITALS (8 sets, daily range): BP systolic 118–134; BP diastolic 55–74; PULSE 74–92; RESP 17–25; TEMP 98.3–99.9; O2SAT 95–97
[2017-08-26] MEDS: ACETAMINOPHEN 325 MG TAB PO PRN (01:54)
[2017-08-26] MEDS: oxyCODONE/ACETAMINOPHEN 10 MG/325 MG TAB PO PRN ×5 (03:05→20:23)
[2017-08-26] MEDS: RESP: ALBUTEROL 2.5 MG/IPRATROPIUM 0.5 MG NEB (SCH) NEB ×4 (03:53→19:45)
[2017-08-26] MEDS: GABAPENTIN 300 MG CAP PO SCH ×3 (05:59→20:22)
[2017-08-26] MEDS: METHOCARBAMOL 500 MG TAB PO SCH ×3 (05:59→20:22)
[2017-08-26] MEDS: VANCOMYCIN INJ 2,500 MG in SODIUM CHLORID 0.9% 500 ML INJ 500 ML IV SCH ×2 (05:59→17:44)
[2017-08-26 06:09] LABS: AUTOMATED NEUTROPHIL # 6.2 TH/MM3 (1.8-7.7); BASOPHIL # 0.1 TH/MM3 (0-0.2); BASOPHIL % 0.6 % (0.0-2.0); EOSINOPHIL # 0.5 TH/MM3 (0-0.4); EOSINOPHIL % 5.4 % (0.0-4.0); HEMATOCRIT 30.4 % (39.0-51.0); LYMPH % 12.3 % (9.0-44.0); LYMPHOCYTE # 1.1 TH/MM3 (1.0-4.8); MEAN CELL VOLUME 89.8 FL (80.0-100.0); MEAN CORPUSCULAR HEMOGLOBIN 29.5 PG (27.0-34.0); MEAN CORPUSCULAR HGB CONC 32.9 % (32.0-36.0); MONO % 14.4 % (0.0-8.0); NEUT % 67.3 % (16.0-70.0); PLATELET COUNT 536 TH/MM3 (150-450); RED BLOOD COUNT 3.38 MIL/MM3 (4.50-5.90); RED CELL DISTRIBUTION WIDTH 15.6 % (11.6-17.2); WHITE BLOOD COUNT 9.2 TH/MM3 (4.0-11.0)
[2017-08-26 06:15] LABS: HEMO FLAGS AUTO DIFF
--- NOTE | 2017-08-26 06:29 | RADRPT ---
EXAM DATE/TIME: 08/26/2017 05:19 [facility] COMPARISON: CHEST SINGLE AP, August 25, 2017, 4:36. INDICATIONS : Short of breath. MEDICAL HISTORY : Hiatal hernia. SURGICAL HISTORY : ENCOUNTER: Subsequent ACUITY: 3 weeks PAIN SCORE: 1/10 LOCATION: Bilateral chest FINDINGS: The cardiac silhouette is enlarged in transverse diameter. Right chest tube is present with moderate right effusion. There is a possible kink within the tube. The left lung is free of acute parenchymal opacity. CONCLUSION: 1. Continued right effusion with possible kink in the tube. There has been no significant change when compared to the prior exam. Henry Silva MD on August 26, 2017 at 6:25 Board Certified Radiologist. This report was verified electronically.
[2017-08-26 06:38] LABS: ALT (GPT) 71 U/L (12-78); ANION GAP 8 MEQ/L (5-15); AST (GOT) 43 U/L (15-37); BICARBONATE 28.5 MEQ/L (21.0-32.0); BLOOD UREA NITROGEN 10 MG/DL (7-18); CHLORIDE 102 MEQ/L (98-107); GLOMERULAR FILTRATION RATE 72 ML/MIN (>89); POTASSIUM 4.1 MEQ/L (3.5-5.1); SODIUM (NA) 138 MEQ/L (136-145)
[2017-08-26 06:41] LABS: ALKALINE PHOSPHATASE 117 U/L (45-117); TOTAL BILIRUBIN ADULT 0.5 MG/DL (0.2-1.0)
[2017-08-26 07:50] LABS: BANDS 9 % (0-6); BASOPHILS 1 % (0-2); EOSINOPHILS 2 % (0-4); METAMYELOCYTES 3 % (0-1); NEUTROPHIL # MANUAL DIFF 6.6 TH/MM3 (1.8-7.7); PLATELET ESTIMATE SMEAR HIGH (NORMAL); PLATELET MORPHOLOGY NORMAL (NORMAL); POLYS (SEG NEUTROPHILS) 60 % (16-70); SCAN/DIFF FINAL DIFF MANUAL; WBC DIFF SAMPLE 100
[2017-08-26] MEDS: REMOVE OLD DURAGESIC (FENTANYL) PATCH T-DERMAL SCH (08:00)
[2017-08-26] MEDS: fentaNYL 50 MCG/HR PATCH T-DERMAL SCH (08:04)
[2017-08-26] MEDS: LIDOCAINE HCL 5% PATCH T-DERMAL SCH (08:04)
[2017-08-26] MEDS: SOTALOL HCL 80 MG TAB PO SCH ×2 (08:05→21:28)
[2017-08-26] MEDS: DILTIAZEM-CD 180 MG CAP ER PO SCH (08:05)
[2017-08-26] MEDS: ASPIRIN EC 81 MG TABEC PO SCH (08:05)
[2017-08-26] MEDS: ENOXAPARIN SODIUM 30 MG/0.3 ML SYRINGE SQ SCH ×2 (08:05→20:23)
[2017-08-26] MEDS: DOCUSATE SODIUM 50 MG/SENNA 8.6 MG TAB PO SCH ×2 (08:06→21:28)
[2017-08-26] MEDS: SODIUM CHLORIDE 0.9% FLUSH 10 ML FLUSH IV FLUSH SCH ×2 (08:06→21:00)
[2017-08-26] MEDS: LACTULOSE SYRUP 20 GM/30 ML CUP PO SCH (08:06)
[2017-08-26] MEDS: BACITRACIN TOP OINT 15 GM TUBE TOPICAL SCH (09:00)
--- NOTE | 2017-08-26 11:16 | HHI.CCPN ---
Subjective Brief History Contusion and laceration of the right kidney upper pole with retroperitoneal bleeding but no active bleeding at this time. Right lobe liver contusion with some perihepatic blood, and serial rib fractures with a very tiny pneumothorax which is sort of in the folds of the pleura as the hilum of the bronchi comes out of the mediastinum. The patient will be now placed in the ICU. Majority of the patient's will not require any further intervention and the the bleeding and are at peritoneal space will be self-contained while minority of patients may need some sort of endovascular embolization our intervention 24 Hour Review/Hospital Course Patient has been stable since the arrival Bruising over the right orbital rim is decreased Neurologic the patient is fully intact Placed several braxton and the laceration of the posterior scalp Bilateral breath sounds and no increase in the mediastinal or pleural air so for all practical purposes this is sealed of Abdomen is soft active bowel sounds Will start patient on diet Stop serial H&H 08/10/17 Patient transferred yesterday back to the ICU because of the severe pain and inability of floor to take care of him Patient is awake alert and oriented Right hemothorax had increased over the few days the patient will see her in the hospital and therefore right chest tube was placed and about 700 cc old blood obtained This improved patient's pulmonary function is breathing much easier at this point 08/18/17 After patient developed rapid atrial fibrillation in the middle of the night to be transferred to the surgical ICU for Cardizem drip and beta blockers which cannot be given the floor His current surgical ICU and heart rate about 110 per minute. Patient on Cardizem drip and Betapace We will have cardiac echo because is not quite clear on patient developed A. fib Chest tube was removed yesterday and patient had no residual pneumothorax however now now has a small residual pneumothorax as well as firm consolidation of the right lower lobe Apparently pneumothorax occurred because nurse removed this morning the dressing and allow the air to enter the chest In the face of the fever will place patient on antibiotics and consult infectious disease Patient probably will not need another chest tube placed however if the pneumothorax enlarges while lace a small chest tube in radiology to expand the lung. My main problem is the fact the patient has an infiltrate in the right lower lobe which may well be pneumonia Cardiac consultation is greatly appreciated 08/19/17 Patient received IV Bolus of Cardizem overnight as well as 0.5mg IV Digoxin x1 for sustained HR in the 150s PO Cardizem started today by Cardiology CXR today shows stable PTX with dense RLL consolidation Still having fevers. Appreciate ID consult 08/20 off IV cardizem still on 5l O2 reviewed CT chest 08/19 with IR about 200-400cc of blood in the chest with lung consolidation-attempted CT drainage with only 6cc output WBC down to 22 08/21 WBC 14 3l O2 off cardizem may need decortication early next week-will d/w No output frpm CT 08/22 slight tacypnea today no CT output wbc 11 MRSA in thoracocentesis 08/23/17 Patient is gradually improving Bilateral breath sounds with decreased over the right base Patient has a large right lower lobe atelectatic area however he has been coughing very well and suddenly there large mucous plugs coming up Small right chest and loculated area has been treated with a pigtail catheter and the Dr. Lopez will inject some TPA to this site to loosen up the clots I have considered the bronchoscopy in this gentleman in face of his right lower lobe infiltrate but does discussing it I do not believe that this was going to benefit the patient weighing off the the risk of intubation sedation and such Patient encouraged to deep breathe and cough Tolerates diet well MRSA in the pleural fluid in treated adequately 08/24/17 Patient is awake alert and oriented He has been working on breathing and coughing or last 24 hours and has coughed up fair amount of thick mucous material Bilateral breath sounds Had TPA installed into right lower lobe adjacent collection and now increase output from the chest tube in form of liquefied blood Moderate pleural effusion remains and hopefully will drain with instillation of TPA At this point we'll hold off on any surgical procedure 08/25/17 Patient doing better White count on decline in leukocytosis resolving About 80 cc drainage from the chest tube which is serosanguineous Patient still has a shadow in lateral ascending line right which is probably a retained hematoma combined with pulmonary contusion and atelectasis we will repeat CAT scan in a few days and see if patient needs thoracoscopy or this can be resolved hopefully without it Taking deep breaths and coughing up much more effectively 08/26/17 Patient doing very well Remains in the ICU as a border for the last 4 days because there are no floor beds available Bilateral breath sounds Had new chest drain placed by radiology but the right in loculated hemothorax appears to be thick and gelatinous Repeat CT of the chest reveals in loculated hemothorax which is take and therefore cannot be evacuated by interventional radiology Discussed with patient and will taken to the operating room for thoracoscopy and evacuation of hemothorax tomorrow Objective Vital Signs Date Time Temp Pulse Resp B/P (MAP) Pulse Ox O2 Delivery O2 Flow Rate FiO2 08/26/17 10:29 97 21 08/26/17 09:04 17 08/26/17 08:00 98.3 80 118/67 (84) 08/26/17 07:00 Room Air 08/25/17 20:31 2.00 Intake and Output 08/26/17 08/26/17 08/27/17 08:00 16:00 00:00 Intake Total 700 ml 525 ml Output Total 650 ml Balance 50 ml 525 ml Result Diagram: 08/26/17 0445 08/26/17 0445 Imaging Last 24 hours Impressions Chest X-Ray 08/26/17 0600 Signed Impressions: Service Date/Time: August 05:19 - CONCLUSION: 1. Continued right effusion with possible kink in the tube. There has been no significant change when compared to the prior exam. Henry Silva MD Chest Tube Change 08/25/17 1247 Signed Impressions: Service Date/Time: Friday, August 25, 2017 18:24 - CONCLUSION: Uncomplicated chest tube exchange as above. Mike Hoang MD Assessment and Plan Plan INJURIES: Scalp lac Nasal bone fx PNEUMOMEDIASTINUM RIGHT rib fx (7-11) w/ tiny PTX RIGHT lower lobe PNEUMATOCELE BILAT lung contusions RIGHT kidney fx w/ hemorrhage LIVER contusion RIGHT rib fx w/small PTX, BILAT lung contusions, RIGHT JACKIE 08/09: S/P RIGHT CT placed for JACKIE Chest x-ray stable PTX with dense RLL consolidation Pain control may need decortication right chest Aggressive pulmonary toileting Encourage OOB- PT ordered Lovenox Leukocytosis ID consulted Broad spectrum abx PNA RIGHT kidney fx w/ hemorrhage, LIVER contusion Supportive care H&H stable LFTS improving 08/09: CT abdomen- kidney hematoma smaller, liver contusion stable Pain control Bowel regimen New onset Afib Cardiology consulted Echo- small pericardial effusion, no tamponade. EF > 70% Cardizem PO Betapace ASA Converted to SR . WBC improving-more SOB today however repeat CT chest npo after MN for possible decortication Plan of care discussed with patient at bedside. Case management consulted to assist with DC planning. Shan Garza MD Aug 26, 2017 11:16
--- NOTE | 2017-08-26 12:58 | HHI.IDPN ---
Subjective Subjective Remarks low grade temps < 100 co R sided chest pain no new c/o Antibiotics vanco Allergies: Coded Allergies: No Known Allergies (Unverified , 08/07/17) Objective . Vital Signs Date Time Temp Pulse Resp B/P (MAP) Pulse Ox O2 Delivery O2 Flow Rate FiO2 08/26/17 12:00 99.3 90 24 121/55 (77) 96 08/26/17 10:29 97 21 08/26/17 09:04 17 08/26/17 09:04 17 08/26/17 08:00 98.3 80 17 118/67 (84) 97 08/26/17 08:00 80 08/26/17 07:00 97 Room Air 08/26/17 04:00 98.9 74 24 134/74 (94) 96 08/26/17 02:54 15 08/26/17 00:00 99.0 87 25 130/57 (81) 95 08/25/17 20:31 100 Nasal Cannula 2.00 08/25/17 20:00 99.0 99 25 114/57 (76) 92 08/25/17 20:00 99 08/25/17 20:00 93 Nasal Cannula 2.00 08/25/17 16:00 99.1 87 21 121/70 (87) 97 08/26/17 08/26/17 08/27/17 15:00 23:00 07:00 Intake Total 525 ml Balance 525 ml IV Total 525 ml . Laboratory Tests Test 08/25/17 04:19 08/26/17 04:45 White Blood Count 12.1 TH/MM3 9.2 TH/MM3 Red Blood Count 3.35 MIL/MM3 3.38 MIL/MM3 Hemoglobin 9.6 GM/DL 10.0 GM/DL Hematocrit 30.1 % 30.4 % Mean Corpuscular Volume 89.7 FL 89.8 FL Mean Corpuscular Hemoglobin 28.8 PG 29.5 PG Mean Corpuscular Hemoglobin Concent 32.1 % 32.9 % Red Cell Distribution Width 14.7 % 15.6 % Platelet Count 578 TH/MM3 536 TH/MM3 Mean Platelet Volume 6.7 FL 6.7 FL Neutrophils (%) (Auto) 71.2 % 67.3 % Lymphocytes (%) (Auto) 12.0 % 12.3 % Monocytes (%) (Auto) 12.4 % 14.4 % Eosinophils (%) (Auto) 3.8 % 5.4 % Basophils (%) (Auto) 0.6 % 0.6 % Neutrophils # (Auto) 8.6 TH/MM3 6.2 TH/MM3 Lymphocytes # (Auto) 1.4 TH/MM3 1.1 TH/MM3 Monocytes # (Auto) 1.5 TH/MM3 1.3 TH/MM3 Eosinophils # (Auto) 0.5 TH/MM3 0.5 TH/MM3 Basophils # (Auto) 0.1 TH/MM3 0.1 TH/MM3 CBC Comment AUTO DIFF AUTO DIFF Differential Total Cells Counted 100 100 Neutrophils % (Manual) 74 % 60 % Band Neutrophils % 7 % 9 % Lymphocytes % 5 % 11 % Monocytes % 9 % 14 % Neutrophils # (Manual) 10.3 TH/MM3 6.6 TH/MM3 Metamyelocytes 2 % 3 % Myelocytes 2 % Differential Comment FINAL DIFF MANUAL FINAL DIFF MANUAL Blastocytes 1 % Platelet Estimate HIGH HIGH Platelet Morphology Comment NORMAL NORMAL Eosinophils % 2 % Basophils % 1 % Laboratory Tests Test 08/25/17 04:13 08/26/17 04:45 Blood Urea Nitrogen 10 MG/DL 10 MG/DL Creatinine 1.01 MG/DL 1.13 MG/DL Random Glucose 101 MG/DL 90 MG/DL Total Protein 5.8 GM/DL 5.8 GM/DL Albumin 1.9 GM/DL 1.9 GM/DL Calcium Level 7.8 MG/DL 7.7 MG/DL Alkaline Phosphatase 116 U/L 117 U/L Aspartate Amino Transf (AST/SGOT) 28 U/L 43 U/L Alanine Aminotransferase (ALT/SGPT) 54 U/L 71 U/L Total Bilirubin 0.5 MG/DL 0.5 MG/DL Sodium Level 136 MEQ/L 138 MEQ/L Potassium Level 4.3 MEQ/L 4.1 MEQ/L Chloride Level 100 MEQ/L 102 MEQ/L Carbon Dioxide Level 28.3 MEQ/L 28.5 MEQ/L Anion Gap 8 MEQ/L 8 MEQ/L Estimat Glomerular Filtration Rate 82 ML/MIN 72 ML/MIN Imaging L Last Impressions Chest X-Ray 08/26/17 0600 Signed Impressions: Service Date/Time: August 05:19 - CONCLUSION: 1. Continued right effusion with possible kink in the tube. There has been no significant change when compared to the prior exam. Henry Silva MD Chest Tube Change 08/25/17 1247 Signed Impressions: Service Date/Time: Friday, August 25, 2017 18:24 - CONCLUSION: Uncomplicated chest tube exchange as above. Mike Hoang MD Chest CT 08/22/171999 Signed Impressions: Service Date/Time: Tuesday, August 22, 2017 20:25 - CONCLUSION: Interval development of dense consolidation in the right lower lobe with atelectasis and loculated effusion, pigtail catheter in place. Also noted is a pericardial effusion. Jake Bettencourt MD Chest Tube Insertion 08/20/17 1548 Signed Impressions: Service Date/Time: Sunday, August 20, 2017 16:03 - CONCLUSION: Uncomplicated chest tube placement as above. Mike Hoang MD Abdomen/Pelvis CT 08/19/17 0000 Signed Impressions: Service Date/Time: August 21:18 - CONCLUSION: 1. Small right anterior basilar pneumothorax. 2. Consolidation in the right lower lobe with loculated pleural effusion. 3. Small pericardial effusion. 4. Multiple right rib fractures and small areas of subcutaneous emphysema. 5. There is nonobstructive bowel gas pattern. Louis Quan MD Lower Extremity Ultrasound 08/15/17 0000 Signed Impressions: Service Date/Time: Tuesday, August 15, 2017 15:44 - CONCLUSION: No evidence of deep venous thrombosis. The study was limited by overlying bandages from injury. Louis Quan MD CT Angiography 08/09/17 0000 Signed Impressions: Service Date/Time: Wednesday, August 09, 2017 12:14 - CONCLUSION: 1. New consolidation greatest in the right lower lobe with soft tissue density now noted in the right mainstem bronchus most consistent with mucous plugging. 2. New moderate size right effusion and small left effusion. 3. Multiple right-sided rib fractures again noted with no pneumothorax. 4. No evidence of pulmonary embolism. Louis Quan MD Thoracic Spine CT 08/07/176 Signed Impressions: Service Date/Time: Monday, August 07, 2017 22:58 - CONCLUSION: No acute fracture or malalignment. Louis Quan MD Pelvis X-Ray 08/07/172245 Signed Impressions: Service Date/Time: Monday, August 07, 2017 22:30 - CONCLUSION: Negative trauma study. Louis Quan MD Maxillofacial CT 08/07/172245 Signed Impressions: Service Date/Time: Monday, August 07, 2017 22:53 - CONCLUSION: Comminuted fracture of the nasal bone. Louis Quan MD Lumbar Spine CT 08/07/172245 Signed Impressions: Service Date/Time: Monday, August 07, 2017 22:58 - CONCLUSION: No acute fracture or malalignment. Louis Quan MD Cervical Spine CT 08/07/172245 Signed Impressions: Service Date/Time: Monday, August 07, 2017 22:53 - CONCLUSION: Negative trauma CT. Louis Quan MD Physical Exam CONSTITUTIONAL/GENERAL: This is an adequately nourished patient, in no apparent distress.OOB in chair TUBES/LINES/DRAINS: SKIN: No jaundice, rashes, . Skin temperature appropriate. Not diaphoretic. HEAD: Healed facial abrasions and resolved ecchymoses. Normocephalic. EYES: Pupils equal and round and reactive. Extraocular motions intact. No scleral icterus. No injection or drainage. Fundi not examined. CARDIOVASCULAR: Irregular rate and rhythm without murmurs, gallops, or rubs. Afib/afultter on monitor @ 150 No JVD. Peripheral pulses symmetric. RESPIRATORY/CHEST: Symmetric, unlabored respirations. Clear to auscultation. Breath sounds diminished R. No wheezes, rales, or rhonchi. CT R side in place with serosag d/c GASTROINTESTINAL: Abdomen soft, no tenderness, nondistended. No hepato- splenomegaly, or palpable masses. No guarding. Bowel sounds present. GENITOURINARY: Without palpable bladder distension. MUSCULOSKELETAL: Extremities without clubbing, cyanosis, or edema. No joint tenderness or effusion noted. No calf tenderness. No mottling or clubbing. R arenas resolving hematoma, no drainage Edema, induration in mulltiple spots or R thigh, likely hematomas - improving slowly NEUROLOGICAL: Awake and alert. Motor and sensory grossly within normal limits. Follows commands. Clear speech . Moves all extremities. PSYCHIATRIC: No obvious anxiety/depression. no apparent hallucinations or other psychotic thought process. Assessment & Plan Remarks Assessment and Plan Assessment and Plan R pulmonary contusion Multiple R sided rib fractures Pneumothorax RLL consolidation Fever, cough R sided empyema, MRSA Small hematoma of R arenas,? infection: keep following New leukemoid reaction, JACQUELIN and abd pain PLAN: - cont vancomycin - decortication vs TPA - monitor clinically will repat blood clx if spikes fever Discussed Condition With Brianne Madrigal MD Aug 26, 2017 12:57
--- NOTE | 2017-08-26 14:05 | RADRPT ---
EXAM DATE/TIME: 08/26/2017 12:58 [facility] COMPARISON: CT GUIDED CHEST TUBE PLACEMENT RIGHT, August 20, 2017, 16:03. CT THORAX W/O CONTRAST, August 18, 2017, 12:22. INDICATIONS : Pleural effusion. RADIATION DOSE: 8.75 CTDIvol (mGy) MEDICAL HISTORY : Hernia, hiatal. SURGICAL HISTORY : Right chest tube ENCOUNTER: Subsequent ACUITY: 1 month PAIN SCALE: 5/10 LOCATION: Right chest TECHNIQUE: Volumetric scanning of the chest was performed. Using automated exposure control and adjustment of t he mA and/or kV according to patient size, radiation dose was kept as low as reasonably achievable to obtain optimal diagnostic quality images. DICOM format image data is available electronically for r eview and comparison. Follow-up recommendations for detected pulmonary nodules are based at a minimum on nodule size and pa tient risk factors according to Fleischner Society Guidelines. FINDINGS: A significant amount of loculated fluid remains evident along the lateral and posterior pleural zoraida ns of the right hemithorax. An indwelling chest tube has been partially withdrawn. Sideholes of the c hest are noted both within the chest and outside the rib cage. The chest tube is kinked in at least 2 places one at the skin entrance site and within the subcutaneous tissue. There is no evidence of pneumothorax. Minimal sized segmental airspace disease identified in the left upper lobe. Multiple right-sided rib fractures are again noted. CONCLUSION: 1. Partial withdrawal of right-sided chest tube as described. 2. Persistent significant amount of loculated pleural effusion in the right lung. 3. No evidence of pneumothorax. 4. Minimal new left upper lobe airspace disease. Anuj Foley MD on August 26, 2017 at 13:55 Board Certified Radiologist. This report was verified electronically.
[2017-08-26] MEDS ORDERED: LACTULOSE SYRUP 20 GM/30 ML CUP PO PRN (15:00)
[2017-08-26] MEDS: REMOVE OLD PATCH-LIDOCAINE T-DERMAL SCH (21:00)
[2017-08-27] VITALS (7 sets, daily range): BP systolic 118–143; BP diastolic 59–69; PULSE 69–92; RESP 18–20; TEMP 97.1–99.1; O2SAT 93–97
[2017-08-27] MEDS: oxyCODONE/ACETAMINOPHEN 10 MG/325 MG TAB PO PRN ×4 (00:24→22:48)
[2017-08-27] MEDS: RESP: ALBUTEROL 2.5 MG/IPRATROPIUM 0.5 MG NEB (SCH) NEB ×4 (02:47→22:30)
[2017-08-27] MEDS ORDERED: SODIUM CHLORID 0.9% 500 ML IV PRN (03:30)
[2017-08-27] MEDS ORDERED: POVIDONE IODINE 5% (ANTISEPSIS KIT) 4 APPLICATIONS EACH NARE PRN (03:30)
[2017-08-27] MEDS ORDERED: CHLORHEXIDINE GLUCONATE 2 % 1 PACK (2 CLOTHS) TOPICAL PRN (03:30)
[2017-08-27] MEDS ORDERED: LACTATED RINGER'S 1000 ML IV PRN (03:30)
[2017-08-27] MEDS: METHOCARBAMOL 500 MG TAB PO SCH ×2 (05:52→21:14)
[2017-08-27] MEDS: GABAPENTIN 300 MG CAP PO SCH ×2 (05:52→21:14)
[2017-08-27] MEDS: VANCOMYCIN INJ 2,500 MG in SODIUM CHLORID 0.9% 500 ML INJ 500 ML IV SCH ×3 (05:53→18:46)
[2017-08-27] MEDS: ENOXAPARIN SODIUM 30 MG/0.3 ML SYRINGE SQ SCH ×2 (07:44→21:15)
[2017-08-27] MEDS: ASPIRIN EC 81 MG TABEC PO SCH (07:46)
[2017-08-27] MEDS: LIDOCAINE HCL 5% PATCH T-DERMAL SCH (09:00)
[2017-08-27] MEDS: BACITRACIN TOP OINT 15 GM TUBE TOPICAL SCH (09:00)
[2017-08-27] MEDS: SOTALOL HCL 80 MG TAB PO SCH ×2 (09:21→21:14)
[2017-08-27] MEDS: DILTIAZEM-CD 180 MG CAP ER PO SCH (09:21)
[2017-08-27] MEDS: DOCUSATE SODIUM 50 MG/SENNA 8.6 MG TAB PO SCH ×2 (09:22→21:14)
[2017-08-27] MEDS: SODIUM CHLORIDE 0.9% FLUSH 10 ML FLUSH IV FLUSH SCH ×2 (09:22→21:15)
[2017-08-27] MEDS ORDERED: ceFAZolin 2 GM PREMIX 0 ML ONE (11:18)
[2017-08-27] MEDS ORDERED: BUPIVACAINE/EPINEPHRINE 0.25% 50 ML VIAL ONE (11:19)
[2017-08-27] MEDS ORDERED: BUPIVACAINE HCL PF 0.25% 30 ML VIAL ONE (11:20)
[2017-08-27] MEDS ORDERED: BUPIVACAINE LIPOSOME PF 1.3% 20 ML VIAL ONE (11:31)
[2017-08-27] MEDS ORDERED: LIDOCAINE HCL 1% PF 5 ML AMPULE OTHER ONE (12:00)
[2017-08-27] MEDS ORDERED: MIDAZOLAM HCL 2 MG/2 ML VIAL IV ONE (12:00)
[2017-08-27] MEDS ORDERED: VECURONIUM BROMIDE 20 MG VIAL IV ONE (12:00)
[2017-08-27] MEDS ORDERED: PROPOFOL 200 MG/20 ML AMP IV ONE (12:00)
[2017-08-27] MEDS ORDERED: GLYCOPYRROLATE 1 MG/5 ML SYRINGE IV PUSH ONE (12:00)
[2017-08-27] MEDS ORDERED: PHENYLEPH/NS 1000 MCG/10 ML SYR IV ONE (12:00)
[2017-08-27] MEDS ORDERED: NEOSTIGMINE 3 MG/3 ML SYR IV ONE (12:00)
[2017-08-27] MEDS ORDERED: STERILE WATER FOR INJECTION 20 ML VIAL IV ONE (12:00)
[2017-08-27] MEDS ORDERED: ePHEDrine/NS 25 MG/5 ML SYR IV ONE (12:00)
[2017-08-27] MEDS ORDERED: ONDANSETRON HCL 4 MG/2 ML VIAL IV PUSH ONE (12:00)
[2017-08-27] MEDS ORDERED: ROCURONIUM INJ 50 MG/5 ML SYRINGE IV PUSH ONE (12:00)
[2017-08-27] MEDS ORDERED: DEXAMETHASONE SOD PHOS 4 MG/ML VIAL IV ONE (12:00)
[2017-08-27] MEDS ORDERED: HYDROmorphone HCL PF 2 MG/ML VIAL ONE (13:12)
[2017-08-27] MEDS ORDERED: ACETAMINOPHEN 1000 MG/100 ML 100 ML IV ONE (13:55)
[2017-08-27] MEDS ORDERED: DO NOT ADM ANY ANTICOAGULANT DRUGS PRN (14:56)
[2017-08-27] MEDS ORDERED: *morphine SULFATE 8 MG/ML PERIprocedure ONLY ONE ×3 (15:20→16:10)
--- NOTE | 2017-08-27 15:41 | RADRPT ---
EXAM DATE/TIME: 08/27/2017 15:12 [facility] COMPARISON: CHEST SINGLE AP, August 26, 2017, 5:19. INDICATIONS : Status post thoracotomy. MEDICAL HISTORY : Hiatal hernia. SURGICAL HISTORY : None. ENCOUNTER: Subsequent ACUITY: 1 day PAIN SCORE: Non-responsive. LOCATION: chest FINDINGS: Interval right-sided thoracotomy with placement of new large bore surgical chest tube in the inferior right hemithorax. Marked interval improvement in loculated right hemothorax with minimal residual pl eural-parenchymal disease in the right lower lung zone. No significant pneumothorax. Cardiac silhouet te is enlarged. Remainder of the exam is unchanged. CONCLUSION: 1. Expected postoperative features of right-sided thoracotomy with large bore chest tube in good posi tion. Minimal residual pleural-parenchymal disease in the right lower lung zone. No pneumothorax. Mike Hoang MD on August 27, 2017 at 15:37 Board Certified Radiologist. This report was verified electronically.
--- NOTE | 2017-08-27 16:37 | HHI.PR ---
Subjective Remarks iIN OR FOR DECORTICATION Objective Vital Signs Date Time Temp Pulse Resp B/P (MAP) Pulse Ox O2 Delivery O2 Flow Rate FiO2 08/27/17 14:56 98.4 74 20 103/56 (72) 97 Nasal Cannula 4 08/27/17 12:12 98.7 79 20 106/61 (76) 93 08/27/17 10:30 98.7 81 20 113/55 (74) 95 08/27/17 09:52 96 08/27/17 08:00 71 08/27/17 08:00 98.6 70 18 143/68 (93) 97 08/27/17 07:00 97 Room Air 08/27/17 04:00 99.1 78 20 124/69 (87) 95 08/27/17 00:00 99.1 92 19 130/67 (88) 97 08/26/17 21:23 15 08/26/17 20:00 85 08/26/17 20:00 99.1 92 19 130/67 (88) 97 08/26/17 20:00 95 Room Air 08/26/17 19:45 96 I/O 08/26/17 08/26/17 08/26/17 08/27/17 08/27/17 08/27/17 07:00 15:00 23:00 07:00 15:00 23:00 Intake Total 700 ml 525 ml 860 ml 1225 ml Output Total 650 ml 15 ml 1200 ml 150 ml Balance 50 ml 525 ml 845 ml -1200 ml 1075 ml Intake Oral 700 ml 860 ml IV Total 525 ml 525 ml Other 700 ml Output Urine Total 650 ml 1200 ml 100 ml Chest Tube Drainage Total 0 ml 15 ml 0 ml Estimated Blood Loss 50 ml # Voids 3 5 4 # Bowel Movements 1 0 1 Result Diagram: 08/26/1744408/26/17444 Objective Remarks GENERAL: SKIN: Warm and dry. 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 Normocephalic. EYES: Pupils equal and round. No scleral icterus. No injection or drainage. ENT: No nasal bleeding or discharge. Mucous membranes pink and moist. NECK: Trachea midline. No JVD. CARDIOVASCULAR: Regular rate and rhythm. RESPIRATORY: No accessory muscle use. decrease breath sounds right base GASTROINTESTINAL: Abdomen soft, non-tender, nondistended. Hepatic and splenic margins not palpable. MUSCULOSKELETAL: Extremities without clubbing, cyanosis, or edema. No obvious deformities. NEUROLOGICAL: Awake and alert. No obvious cranial nerve deficits. Motor grossly within normal limits. Five out of 5 muscle strength in the arms and legs. Normal speech. PSYCHIATRIC: Appropriate mood and affect; insight and judgment normal. Assessment and Plan Assessment and Plan right RIB FX AND HEMOTHORAX CT IN PLACE , NO LEAK ? PNEUMONIA PLAN O2 NEEDED PULM TOILET DECORTICATION TODAY Clara Elizabeth MD Aug 27, 2017 16:37
[2017-08-27] MEDS: REMOVE OLD PATCH-LIDOCAINE T-DERMAL SCH (21:00)
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
[2017-08-28] VITALS (8 sets, daily range): BP systolic 106–131; BP diastolic 57–70; PULSE 77–88; RESP 16–19; TEMP 96.4–99.7; O2SAT 93–99
[2017-08-28] MEDS: oxyCODONE/ACETAMINOPHEN 10 MG/325 MG TAB PO PRN ×5 (03:13→21:27)
[2017-08-28] MEDS: RESP: ALBUTEROL 2.5 MG/IPRATROPIUM 0.5 MG NEB (SCH) NEB ×4 (03:39→21:04)
[2017-08-28 04:47] LABS: BICARBONATE 24.8 MEQ/L (21.0-32.0); POTASSIUM 4.3 MEQ/L (3.5-5.1)
[2017-08-28 05:06] LABS: AUTOMATED NEUTROPHIL # 9.7 TH/MM3 (1.8-7.7); BASOPHIL % 0.4 % (0.0-2.0); EOSINOPHIL # 0.1 TH/MM3 (0-0.4); EOSINOPHIL % 0.6 % (0.0-4.0); HEMATOCRIT 33.6 % (39.0-51.0); HEMO FLAGS DIFF FINAL; LYMPH % 9.8 % (9.0-44.0); LYMPHOCYTE # 1.2 TH/MM3 (1.0-4.8); MEAN CORPUSCULAR HEMOGLOBIN 29.3 PG (27.0-34.0); MEAN CORPUSCULAR HGB CONC 32.9 % (32.0-36.0); MONO % 9.2 % (0.0-8.0); PLATELET COUNT 516 TH/MM3 (150-450); RED BLOOD COUNT 3.77 MIL/MM3 (4.50-5.90); RED CELL DISTRIBUTION WIDTH 15.3 % (11.6-17.2); WHITE BLOOD COUNT 12.1 TH/MM3 (4.0-11.0)
--- NOTE | 2017-08-28 05:40 | RADRPT ---
EXAM DATE/TIME: 08/28/2017 04:50 [facility] COMPARISON: CHEST SINGLE AP, August 27, 2017, 15:12. INDICATIONS : Hemothorax. MEDICAL HISTORY : Hiatal hernia. SURGICAL HISTORY : None. ENCOUNTER: Subsequent ACUITY: 1 day PAIN SCORE: Non-responsive. LOCATION: Bilateral chest FINDINGS: The cardiac silhouette is enlarged in transverse diameter. A right chest tube is in place. There is n o evidence of pneumothorax. A small right sided effusion is present. There is no evidence of pneumot horax. The left lung is free of acute parenchymal opacity. CONCLUSION: 1. Stable right-sided effusion. There is no evidence of pneumothorax. Henry Silva MD on August 28, 2017 at 5:38 Board Certified Radiologist. This report was verified electronically.
[2017-08-28] MEDS: VANCOMYCIN INJ 2,500 MG in SODIUM CHLORID 0.9% 500 ML INJ 500 ML IV SCH ×2 (05:53→16:17)
[2017-08-28] MEDS: GABAPENTIN 300 MG CAP PO SCH ×3 (05:55→21:26)
[2017-08-28] MEDS: METHOCARBAMOL 500 MG TAB PO SCH ×3 (05:55→21:35)
[2017-08-28] MEDS: SODIUM CHLORIDE 0.9% FLUSH 10 ML FLUSH IV FLUSH SCH ×2 (11:07→21:35)
[2017-08-28] MEDS: LIDOCAINE HCL 5% PATCH T-DERMAL SCH (11:07)
[2017-08-28] MEDS: DILTIAZEM-CD 180 MG CAP ER PO SCH (11:08)
[2017-08-28] MEDS: SOTALOL HCL 80 MG TAB PO SCH ×2 (11:08→21:26)
[2017-08-28] MEDS: DOCUSATE SODIUM 50 MG/SENNA 8.6 MG TAB PO SCH ×2 (11:09→21:26)
[2017-08-28] MEDS: ASPIRIN EC 81 MG TABEC PO SCH (11:09)
[2017-08-28] MEDS: BACITRACIN TOP OINT 15 GM TUBE TOPICAL SCH (11:10)
[2017-08-28] MEDS: ENOXAPARIN SODIUM 30 MG/0.3 ML SYRINGE SQ SCH ×2 (11:10→21:32)
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
[2017-08-28] MEDS: fentaNYL 100 MCG/HR PATCH T-DERMAL SCH (13:59)
--- NOTE | 2017-08-28 19:39 | HHI.PR ---
Subjective Remarks ALERT NO SOB DOING WELL POST OP CHEST TUBE IN PLACE , MINIMAL DRAINAGE Objective Vital Signs Date Time Temp Pulse Resp B/P (MAP) Pulse Ox O2 Delivery O2 Flow Rate FiO2 08/28/17 16:00 98.3 84 19 115/57 (76) 97 08/28/17 15:38 99 21 08/28/17 12:00 97.3 77 18 111/70 (84) 99 08/28/17 09:54 95 Nasal Cannula 2.00 08/28/17 08:00 97.0 77 16 109/62 (78) 98 08/28/17 04:51 96.4 83 18 106/57 (73) 95 08/28/17 00:00 96.4 86 18 113/58 (76) 93 08/27/17 22:30 94 Nasal Cannula 2.00 08/27/17 21:01 Nasal Cannula 2.00 08/27/17 20:00 97.3 84 18 118/59 (78) 93 I/O 08/27/17 08/27/17 08/27/17 08/28/17 08/28/17 08/28/17 07:00 15:00 23:00 07:00 15:00 23:00 Intake Total 1225 ml 480 ml 525 ml 1005 ml Output Total 1200 ml 150 ml 128 ml 2800 ml 10 ml 350 ml Balance -1200 ml 1075 ml 352 ml -2800 ml 515 ml 655 ml Intake Oral 480 ml 480 ml IV Total 525 ml 525 ml 525 ml Other 700 ml Output Urine Total 1200 ml 100 ml 2800 ml 350 ml Chest Tube Drainage Total 0 ml 128 ml 10 ml Estimated Blood Loss 50 ml # Voids 4 # Bowel Movements 1 0 Result Diagram: 08/28/179 08/28/17 025 Objective Remarks GENERAL: SKIN: Warm and dry. 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 Normocephalic. EYES: Pupils equal and round. No scleral icterus. No injection or drainage. ENT: No nasal bleeding or discharge. Mucous membranes pink and moist. NECK: Trachea midline. No JVD. CARDIOVASCULAR: Regular rate and rhythm. RESPIRATORY: No accessory muscle use. decrease breath sounds right base GASTROINTESTINAL: Abdomen soft, non-tender, nondistended. Hepatic and splenic margins not palpable. MUSCULOSKELETAL: Extremities without clubbing, cyanosis, or edema. No obvious deformities. NEUROLOGICAL: Awake and alert. No obvious cranial nerve deficits. Motor grossly within normal limits. Five out of 5 muscle strength in the arms and legs. Normal speech. PSYCHIATRIC: Appropriate mood and affect; insight and judgment normal. Assessment and Plan Assessment and Plan right RIB FX AND HEMOTHORAX CT IN PLACE , NO LEAK STABLE POST OP PLAN O2 NEEDED PULM TOILET Clara Elizabeth MD Aug 28, 2017 19:39
[2017-08-28] MEDS: REMOVE OLD PATCH-LIDOCAINE T-DERMAL SCH (21:00)
[2017-08-29] VITALS (9 sets, daily range): BP systolic 104–124; BP diastolic 55–80; PULSE 77–98; RESP 18–19; TEMP 98–100.1; O2SAT 93–97
[2017-08-29] MEDS: oxyCODONE/ACETAMINOPHEN 10 MG/325 MG TAB PO PRN ×4 (03:46→21:49)
[2017-08-29] MEDS: RESP: ALBUTEROL 2.5 MG/IPRATROPIUM 0.5 MG NEB (SCH) NEB (04:02)
[2017-08-29] MEDS: GABAPENTIN 300 MG CAP PO SCH ×3 (06:08→21:51)
[2017-08-29] MEDS: METHOCARBAMOL 500 MG TAB PO SCH ×3 (06:08→21:49)
[2017-08-29] MEDS: VANCOMYCIN INJ 2,500 MG in SODIUM CHLORID 0.9% 500 ML INJ 500 ML IV SCH ×2 (06:20→17:06)
[2017-08-29] MEDS ORDERED: PHARMACY ORDERED LAB ONE (06:45)
[2017-08-29] MEDS: DOCUSATE SODIUM 50 MG/SENNA 8.6 MG TAB PO SCH ×2 (07:47→19:26)
[2017-08-29] MEDS: ENOXAPARIN SODIUM 30 MG/0.3 ML SYRINGE SQ SCH ×2 (07:47→19:26)
[2017-08-29] MEDS: DILTIAZEM-CD 180 MG CAP ER PO SCH (07:48)
[2017-08-29] MEDS: LIDOCAINE HCL 5% PATCH T-DERMAL SCH (07:48)
[2017-08-29] MEDS: SOTALOL HCL 80 MG TAB PO SCH ×2 (07:48→19:26)
[2017-08-29] MEDS: BACITRACIN TOP OINT 15 GM TUBE TOPICAL SCH (07:49)
[2017-08-29] MEDS: SODIUM CHLORIDE 0.9% FLUSH 10 ML FLUSH IV FLUSH SCH ×2 (08:08→19:26)
[2017-08-29] MEDS: ASPIRIN EC 81 MG TABEC PO SCH (08:09)
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
--- NOTE | 2017-08-29 12:07 | HHI.PR ---
Subjective Remarks ALERT NO SOB DOING WELL POST OP CHEST TUBE IN PLACE , MINIMAL DRAINAGE Objective Vital Signs Date Time Temp Pulse Resp B/P (MAP) Pulse Ox O2 Delivery O2 Flow Rate FiO2 08/29/17 08:00 98.0 77 18 110/69 (83) 95 08/29/17 05:57 98.5 87 18 109/55 (73) 93 08/29/17 04:00 97 21 08/29/17 01:32 99.0 89 18 104/63 (77) 95 08/28/17 20:00 99.7 88 18 131/69 (89) 94 08/28/17 16:00 98.3 84 19 115/57 (76) 97 08/28/17 15:38 99 21 I/O 08/28/17 08/28/17 08/28/17 08/29/17 08/29/17 08/29/17 07:00 15:00 23:00 07:00 15:00 23:00 Intake Total 525 ml 1005 ml Output Total 2800 ml 10 ml 350 ml 1250 ml Balance -2800 ml 515 ml 655 ml -1250 ml Intake Oral 480 ml IV Total 525 ml 525 ml Output Urine Total 2800 ml 350 ml 1250 ml Chest Tube Drainage Total 10 ml # Bowel Movements 0 Result Diagram: 08/28/17 0259 08/28/17 0259 Objective Remarks GENERAL: SKIN: Warm and dry. 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 Normocephalic. EYES: Pupils equal and round. No scleral icterus. No injection or drainage. ENT: No nasal bleeding or discharge. Mucous membranes pink and moist. NECK: Trachea midline. No JVD. CARDIOVASCULAR: Regular rate and rhythm. RESPIRATORY: No accessory muscle use. decrease breath sounds right base GASTROINTESTINAL: Abdomen soft, non-tender, nondistended. Hepatic and splenic margins not palpable. MUSCULOSKELETAL: Extremities without clubbing, cyanosis, or edema. No obvious deformities. NEUROLOGICAL: Awake and alert. No obvious cranial nerve deficits. Motor grossly within normal limits. Five out of 5 muscle strength in the arms and legs. Normal speech. PSYCHIATRIC: Appropriate mood and affect; insight and judgment normal. Assessment and Plan Assessment and Plan right RIB FX AND HEMOTHORAX CT IN PLACE , NO LEAK STABLE POST OP PLAN O2 NEEDED PULM TOILET Clara Elizabeth MD Aug 29, 2017 12:07
[2017-08-29] MEDS: REMOVE OLD PATCH-LIDOCAINE T-DERMAL SCH (19:26)
[2017-08-30] VITALS (7 sets, daily range): BP systolic 113–135; BP diastolic 64–69; PULSE 77–94; RESP 17–18; TEMP 97–100; O2SAT 92–98
[2017-08-30] MEDS: oxyCODONE/ACETAMINOPHEN 10 MG/325 MG TAB PO PRN ×5 (03:56→20:39)
[2017-08-30 04:10] LABS: AUTOMATED NEUTROPHIL # 5.8 TH/MM3 (1.8-7.7); BASOPHIL % 0.5 % (0.0-2.0); EOSINOPHIL # 0.7 TH/MM3 (0-0.4); EOSINOPHIL % 8.3 % (0.0-4.0); HEMATOCRIT 31.7 % (39.0-51.0); HEMO FLAGS DIFF FINAL; LYMPH % 11.6 % (9.0-44.0); MEAN CELL VOLUME 87.4 FL (80.0-100.0); MEAN CORPUSCULAR HEMOGLOBIN 29.1 PG (27.0-34.0); MEAN CORPUSCULAR HGB CONC 33.2 % (32.0-36.0); MONO % 14.1 % (0.0-8.0); NEUT % 65.5 % (16.0-70.0); PLATELET COUNT 450 TH/MM3 (150-450); RED BLOOD COUNT 3.63 MIL/MM3 (4.50-5.90); RED CELL DISTRIBUTION WIDTH 15.9 % (11.6-17.2); WHITE BLOOD COUNT 8.9 TH/MM3 (4.0-11.0)
[2017-08-30 04:22] LABS: ANION GAP 7 MEQ/L (5-15); AST (GOT) 60 U/L (15-37); BICARBONATE 26.9 MEQ/L (21.0-32.0); BLOOD UREA NITROGEN 12 MG/DL (7-18); CHLORIDE 101 MEQ/L (98-107); GLOMERULAR FILTRATION RATE 89 ML/MIN (>89); MAGNESIUM 1.8 MG/DL (1.5-2.5); POTASSIUM 4.1 MEQ/L (3.5-5.1); SODIUM (NA) 135 MEQ/L (136-145)
[2017-08-30 04:24] LABS: ALKALINE PHOSPHATASE 118 U/L (45-117); ALT (GPT) 81 U/L (12-78); TOTAL BILIRUBIN ADULT 0.5 MG/DL (0.2-1.0)
[2017-08-30] MEDS: METHOCARBAMOL 500 MG TAB PO SCH ×3 (05:13→20:40)
[2017-08-30] MEDS: GABAPENTIN 300 MG CAP PO SCH ×3 (05:13→20:40)
[2017-08-30] MEDS: VANCOMYCIN INJ 2,500 MG in SODIUM CHLORID 0.9% 500 ML INJ 500 ML IV SCH ×2 (05:14→18:11)
--- NOTE | 2017-08-30 06:48 | RADRPT ---
EXAM DATE/TIME: 08/30/2017 05:05 [facility] COMPARISON: CHEST SINGLE AP, August 28, 2017, 4:50. INDICATIONS : Short of breath, evaluate right side chest tube MEDICAL HISTORY : kidney fracture, hiatal hernia SURGICAL HISTORY : None. ENCOUNTER: Subsequent ACUITY: 1 month PAIN SCORE: 5/10 LOCATION: Right chest FINDINGS: A single view of the chest demonstrates the right sided chest tube remains kinked on itself in the ri ght lung. Small right pleural effusion and atelectasis in the right lung base. The cardiomediastina l contours are unremarkable. Osseous structures are intact. CONCLUSION: Right-sided chest remains kinked overlying the right lung. Small right pleural effusion. Yaya Weldon MD on August 30, 2017 at 6:44 Board Certified Radiologist. This report was verified electronically.
[2017-08-30] MEDS: LIDOCAINE HCL 5% PATCH T-DERMAL SCH (07:52)
[2017-08-30] MEDS: ENOXAPARIN SODIUM 30 MG/0.3 ML SYRINGE SQ SCH ×2 (07:53→20:40)
[2017-08-30] MEDS: DOCUSATE SODIUM 50 MG/SENNA 8.6 MG TAB PO SCH ×2 (07:55→20:40)
[2017-08-30] MEDS: ASPIRIN EC 81 MG TABEC PO SCH (07:56)
[2017-08-30] MEDS: DILTIAZEM-CD 180 MG CAP ER PO SCH (07:56)
[2017-08-30] MEDS: SOTALOL HCL 80 MG TAB PO SCH ×2 (07:56→20:41)
[2017-08-30] MEDS: BACITRACIN TOP OINT 15 GM TUBE TOPICAL SCH (07:57)
[2017-08-30] MEDS: SODIUM CHLORIDE 0.9% FLUSH 10 ML FLUSH IV FLUSH SCH ×2 (07:57→20:39)
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
--- NOTE | 2017-08-30 18:22 | HHI.PR ---
Subjective Remarks ALERT NO SOB CHEST TUBE IN PLACE , MINIMAL DRAINAGE Objective Vital Signs Date Time Temp Pulse Resp B/P (MAP) Pulse Ox O2 Delivery O2 Flow Rate FiO2 08/30/17 16:00 100.0 88 18 117/67 (84) 95 08/30/17 13:13 18 08/30/17 12:00 97.0 81 18 113/68 (83) 98 08/30/17 11:19 97 08/30/17 08:00 97.5 79 18 135/69 (91) 97 08/30/17 08:00 77 08/30/17 04:00 98.9 94 17 123/67 (85) 94 08/30/17 00:00 98.4 86 18 113/64 (80) 92 08/29/17 20:00 100.1 98 19 124/70 (88) 95 08/29/17 19:45 86 08/29/17 18:59 97 I/O 08/29/17 08/29/17 08/29/17 08/30/17 08/30/17 08/30/17 07:00 15:00 23:00 07:00 15:00 23:00 Intake Total 525 ml 1005 ml 1560 ml Output Total 1250 ml 1260 ml 650 ml Balance -1250 ml 525 ml -255 ml 910 ml Intake Oral 480 ml 1560 ml IV Total 525 ml 525 ml Output Urine Total 1250 ml 1200 ml 650 ml Chest Tube Drainage Total 60 ml 0 ml # Voids 2 # Bowel Movements 1 Result Diagram: 08/30/17 0345 08/30/17 034 Procedures GENERAL: SKIN: Warm and dry. 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 Normocephalic. EYES: Pupils equal and round. No scleral icterus. No injection or drainage. ENT: No nasal bleeding or discharge. Mucous membranes pink and moist. NECK: Trachea midline. No JVD. CARDIOVASCULAR: Regular rate and rhythm. RESPIRATORY: No accessory muscle use. Clear to auscultation. Breath sounds equal bilaterally. GASTROINTESTINAL: Abdomen soft, non-tender, nondistended. Hepatic and splenic margins not palpable. MUSCULOSKELETAL: Extremities without clubbing, cyanosis, or edema. No obvious deformities. NEUROLOGICAL: Awake and alert. No obvious cranial nerve deficits. Motor grossly within normal limits. Five out of 5 muscle strength in the arms and legs. Normal speech. PSYCHIATRIC: Appropriate mood and affect; insight and judgment normal. Objective Remarks GENERAL: SKIN: Warm and dry. 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 Normocephalic. EYES: Pupils equal and round. No scleral icterus. No injection or drainage. ENT: No nasal bleeding or discharge. Mucous membranes pink and moist. NECK: Trachea midline. No JVD. CARDIOVASCULAR: Regular rate and rhythm. RESPIRATORY: No accessory muscle use. decrease breath sounds right base GASTROINTESTINAL: Abdomen soft, non-tender, nondistended. Hepatic and splenic margins not palpable. MUSCULOSKELETAL: Extremities without clubbing, cyanosis, or edema. No obvious deformities. NEUROLOGICAL: Awake and alert. No obvious cranial nerve deficits. Motor grossly within normal limits. Five out of 5 muscle strength in the arms and legs. Normal speech. PSYCHIATRIC: Appropriate mood and affect; insight and judgment normal. Assessment and Plan Assessment and Plan right RIB FX AND HEMOTHORAX CT IN PLACE , NO LEAK STABLE POST OP PLAN CXRAY SMALL EFFUSION PULM TOILET TO REMOVE CT SOON Clara Elizabeth MD Aug 30, 2017 18:22
[2017-08-30] MEDS: diphenhydrAMINE HCL 50 MG CAP PO PRN (18:44)
[2017-08-30] MEDS: REMOVE OLD PATCH-LIDOCAINE T-DERMAL SCH (20:41)
[2017-08-31] VITALS (8 sets, daily range): BP systolic 107–122; BP diastolic 50–67; PULSE 76–90; RESP 17–18; TEMP 97.7–100.8; O2SAT 92–98
[2017-08-31] MEDS: oxyCODONE/ACETAMINOPHEN 10 MG/325 MG TAB PO PRN ×4 (03:17→21:04)
[2017-08-31] MEDS: VANCOMYCIN INJ 2,500 MG in SODIUM CHLORID 0.9% 500 ML INJ 500 ML IV SCH ×2 (05:34→17:42)
[2017-08-31] MEDS: METHOCARBAMOL 500 MG TAB PO SCH ×3 (05:34→21:14)
[2017-08-31] MEDS: GABAPENTIN 300 MG CAP PO SCH ×3 (05:34→21:14)
[2017-08-31] MEDS ORDERED: PHARMACY ORDERED LAB ONE (05:45)
--- NOTE | 2017-08-31 06:43 | RADRPT ---
EXAM DATE/TIME: 08/31/2017 05:48 [facility] COMPARISON: CHEST SINGLE AP, August 28, 2017, 4:50. CHEST SINGLE AP, August 30, 2017, 5:05. INDICATIONS : Short of breath, evaluate right side chest tube MEDICAL HISTORY : kidney fracture, hiatal hernia SURGICAL HISTORY : chest tube ENCOUNTER: Subsequent ACUITY: 1 month PAIN SCORE: 10/10 LOCATION: Bilateral chest FINDINGS: A single view of the chest demonstrates a right-sided chest tube has been significantly retracted. Th e other chest tube now overlies the mid clavicular line overlying the right hemidiaphragm. Moderate pleural effusion with some passive atelectasis right lung base. No visible pneumothorax. Cardiac silh ouette remains slightly widened. Osseous structures are intact. CONCLUSION: Chest tube has been retracted. Persistant consolidation and effusion in the right lung base unchanged . Yaya Weldon MD on August 31, 2017 at 6:40 Board Certified Radiologist. This report was verified electronically.
[2017-08-31] MEDS: oxyCODONE/ACETAMINOPHEN 5 MG/325 MG TAB PO PRN (08:00)
[2017-08-31] MEDS: ASPIRIN EC 81 MG TABEC PO SCH (09:00)
[2017-08-31] MEDS: BACITRACIN TOP OINT 15 GM TUBE TOPICAL SCH (09:00)
[2017-08-31] MEDS: SODIUM CHLORIDE 0.9% FLUSH 10 ML FLUSH IV FLUSH SCH ×2 (09:37→21:05)
[2017-08-31] MEDS: DOCUSATE SODIUM 50 MG/SENNA 8.6 MG TAB PO SCH ×2 (09:37→21:05)
[2017-08-31] MEDS: DILTIAZEM-CD 180 MG CAP ER PO SCH (09:37)
[2017-08-31] MEDS: SOTALOL HCL 80 MG TAB PO SCH ×2 (09:37→21:05)
[2017-08-31] MEDS: LIDOCAINE HCL 5% PATCH T-DERMAL SCH (09:38)
[2017-08-31] MEDS: ENOXAPARIN SODIUM 30 MG/0.3 ML SYRINGE SQ SCH ×2 (09:39→21:06)
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
[2017-08-31] MEDS ORDERED: OXYC1TAB63 PO (11:24)
[2017-08-31] MEDS ORDERED: ECASA81 PO (11:24)
[2017-08-31] MEDS ORDERED: METH500T3 PO (11:24)
[2017-08-31] MEDS ORDERED: CARD180C5 PO (11:24)
[2017-08-31] MEDS ORDERED: SOTA80 PO (11:24)
[2017-08-31] MEDS ORDERED: NEUR300C PO (11:24)
[2017-08-31] MEDS ORDERED: REMOVE OLD DURAGESIC (FENTANYL) PATCH T-DERMAL SCH (13:00)
[2017-08-31] MEDS: fentaNYL 100 MCG/HR PATCH T-DERMAL SCH (13:03)
[2017-08-31] MEDS: diphenhydrAMINE HCL 50 MG CAP PO PRN ×2 (14:00→21:04)
--- NOTE | 2017-08-31 18:11 | HHI.PR ---
Addendum to Inpatient Note Additional Information pt seen today around 1645 pm full note to follow sp surgery fever 100.7 CT was removed anticipate IV abx x 2 weeks or longer jaja wilkinson parents @ b/s Brianne Corbin MD Aug 31, 2017 18:11
--- NOTE | 2017-08-31 19:12 | HHI.PR ---
Subjective Remarks ALERT NO SOB CHEST tube removed Objective Vital Signs Date Time Temp Pulse Resp B/P (MAP) Pulse Ox O2 Delivery O2 Flow Rate FiO2 08/31/17 16:00 99.1 86 18 107/58 (74) 95 08/31/17 15:00 79 08/31/17 12:29 18 08/31/17 12:00 100.7 90 18 112/50 (70) 93 08/31/17 09:00 16 08/31/17 08:00 97.7 76 17 115/67 (83) 98 08/31/17 08:00 81 08/31/17 04:00 99.6 81 18 108/58 (75) 92 08/31/17 00:00 99.3 82 18 122/65 (84) 94 08/30/17 21:22 21 08/30/17 20:00 99.4 84 18 123/66 (85) 95 I/O 08/30/17 08/30/17 08/30/17 08/31/17 08/31/17 08/31/17 07:00 15:00 23:00 07:00 15:00 23:00 Intake Total 1560 ml 1200 ml 500 ml 720 ml Output Total 650 ml 0 ml 1150 ml Balance 910 ml 1200 ml -650 ml 720 ml Intake Oral 1560 ml 1200 ml 720 ml IV Total 500 ml Output Urine Total 650 ml 1150 ml Chest Tube Drainage Total 0 ml 0 ml # Voids 2 5 4 # Bowel Movements 1 0 Result Diagram: 08/30/17 0345 08/30/17 0345 Procedures GENERAL: SKIN: Warm and dry. 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 Normocephalic. EYES: Pupils equal and round. No scleral icterus. No injection or drainage. ENT: No nasal bleeding or discharge. Mucous membranes pink and moist. NECK: Trachea midline. No JVD. CARDIOVASCULAR: Regular rate and rhythm. RESPIRATORY: No accessory muscle use. Clear to auscultation. Breath sounds equal bilaterally. GASTROINTESTINAL: Abdomen soft, non-tender, nondistended. Hepatic and splenic margins not palpable. MUSCULOSKELETAL: Extremities without clubbing, cyanosis, or edema. No obvious deformities. NEUROLOGICAL: Awake and alert. No obvious cranial nerve deficits. Motor grossly within normal limits. Five out of 5 muscle strength in the arms and legs. Normal speech. PSYCHIATRIC: Appropriate mood and affect; insight and judgment normal. Objective Remarks GENERAL: SKIN: Warm and dry. 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 Normocephalic. EYES: Pupils equal and round. No scleral icterus. No injection or drainage. ENT: No nasal bleeding or discharge. Mucous membranes pink and moist. NECK: Trachea midline. No JVD. CARDIOVASCULAR: Regular rate and rhythm. RESPIRATORY: No accessory muscle use. decrease breath sounds right base GASTROINTESTINAL: Abdomen soft, non-tender, nondistended. Hepatic and splenic margins not palpable. MUSCULOSKELETAL: Extremities without clubbing, cyanosis, or edema. No obvious deformities. NEUROLOGICAL: Awake and alert. No obvious cranial nerve deficits. Motor grossly within normal limits. Five out of 5 muscle strength in the arms and legs. Normal speech. PSYCHIATRIC: Appropriate mood and affect; insight and judgment normal. Assessment and Plan Assessment and Plan right RIB FX AND HEMOTHORAX CT Iremoved PLAN increase activity Clara Elizabeth MD Aug 31, 2017 19:12
[2017-08-31] MEDS: REMOVE OLD PATCH-LIDOCAINE T-DERMAL SCH (21:00)
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
[2017-09-01] VITALS: BP 114/67; PULSE 70; RESP 18; TEMP 98.2; O2SAT 96
[2017-09-01] MEDS: oxyCODONE/ACETAMINOPHEN 10 MG/325 MG TAB PO PRN ×4 (03:55→17:17)
[2017-09-01 04:50] VITALS: BP 114/64; PULSE 70; RESP 18; TEMP 97.6; O2SAT 97
[2017-09-01] MEDS: METHOCARBAMOL 500 MG TAB PO SCH ×2 (05:15→13:18)
[2017-09-01] MEDS: GABAPENTIN 300 MG CAP PO SCH ×2 (05:15→13:18)
[2017-09-01] MEDS ORDERED: PHARMACY ORDERED LAB ONE (05:45)
--- NOTE | 2017-09-01 06:20 | RADRPT ---
EXAM DATE/TIME: 09/01/2017 05:52 [facility] COMPARISON: CHEST SINGLE AP, August 31, 2017, 5:48. CHEST SINGLE AP, August 30, 2017, 5:05. CHEST SINGLE AP , August 28, 2017, 4:50. INDICATIONS : Shortness of breath. MEDICAL HISTORY : kidney fracture, hiatal hernia SURGICAL HISTORY : chest tube ENCOUNTER: Subsequent ACUITY: 1 month PAIN SCORE: Non-responsive. LOCATION: Bilateral chest FINDINGS: A single view of the chest demonstrates the interval removal of the right-sided chest tube. There is a small remaining right pleural effusion and atelectasis right lung base. Left lung is clear. The ca rdiomediastinal contours are unremarkable. Osseous structures are intact. CONCLUSION: Right-sided chest tube has been removed. Right pleural effusion and passive atelectasis right lung ba se unchanged. Yaya Weldon MD on September 01, 2017 at 6:18 Board Certified Radiologist. This report was verified electronically.
[2017-09-01 08:00] VITALS: BP 109/63; PULSE 65; RESP 16; TEMP 97.1; O2SAT 95
[2017-09-01 09:10] VITALS: O2SAT 96
[2017-09-01] MEDS: ENOXAPARIN SODIUM 30 MG/0.3 ML SYRINGE SQ SCH (09:15)
[2017-09-01] MEDS: ASPIRIN EC 81 MG TABEC PO SCH (09:15)
[2017-09-01] MEDS: DILTIAZEM-CD 180 MG CAP ER PO SCH (09:16)
[2017-09-01] MEDS: SOTALOL HCL 80 MG TAB PO SCH (09:16)
[2017-09-01] MEDS: DOCUSATE SODIUM 50 MG/SENNA 8.6 MG TAB PO SCH (09:16)
[2017-09-01] MEDS: SODIUM CHLORIDE 0.9% FLUSH 10 ML FLUSH IV FLUSH SCH (09:16)
[2017-09-01] MEDS: LIDOCAINE HCL 5% PATCH T-DERMAL SCH (09:17)
[2017-09-01] MEDS: BACITRACIN TOP OINT 15 GM TUBE TOPICAL SCH (09:18)
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
[2017-09-01] MEDS ORDERED: LINEZOLID 600 MG TAB PO SCH (11:00)
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
[2017-09-01 12:00] VITALS: BP 105/56; PULSE 74; RESP 18; TEMP 97.4; O2SAT 97
[2017-09-01] MEDS ORDERED: ZYVO600T PO (14:55)
[2017-09-01 16:00] VITALS: BP 108/61; PULSE 76; RESP 16; TEMP 97.6; O2SAT 96
[2017-09-01] MEDS: diphenhydrAMINE HCL 50 MG CAP PO PRN (16:00)
--- NOTE | 2017-09-01 18:30 | HHI.IDPN ---
Subjective Subjective Remarks again fever 100.8 last night @ 2000 now afebrile Also developped severe pruritic rash which resolved after benadryl administration Vanco was stopped and pt was started on zyvox Another episode of pruritic rash developped 3 hrs ago and improved 90% with benadryl Antibiotics zyvox Allergies: Coded Allergies: No Known Allergies (Unverified , 08/07/17) Objective . Vital Signs Date Time Temp Pulse Resp B/P (MAP) Pulse Ox O2 Delivery O2 Flow Rate FiO2 09/01/17 16:00 97.6 76 16 108/61 (77) 96 09/01/17 12:00 97.4 74 18 105/56 (72) 97 09/01/17 09:10 96 21 09/01/17 08:00 97.1 65 16 109/63 (78) 95 09/01/17 04:50 97.6 70 18 114/64 (81) 97 09/01/17 00:00 98.2 70 18 114/67 (83) 96 08/31/17 20:18 89 08/31/17 20:00 100.8 87 18 113/60 (77) 95 09/01/17 09/01/17 09/02/17 15:00 23:00 07:00 Intake Total 1200 ml Balance 1200 ml Intake Oral 1200 ml # Voids 6 # Bowel Movements 1 Imaging Last Impressions Chest X-Ray 08/31/17 0600 Signed Impressions: Service Date/Time: Thursday, August 31, 2017 05:48 - CONCLUSION: Chest tube has been retracted. Persistant consolidation and effusion in the right lung base unchanged. Yaya Weldon MD Chest CT 08/26/17 0000 Signed Impressions: Service Date/Time: August 12:58 - CONCLUSION: 1. Partial withdrawal of right-sided chest tube as described. 2. Persistent significant amount of loculated pleural effusion in the right lung. 3. No evidence of pneumothorax. 4. Minimal new left upper lobe airspace disease. Anuj Foley MD Chest Tube Change 08/25/17 1247 Signed Impressions: Service Date/Time: Friday, August 25, 2017 18:24 - CONCLUSION: Uncomplicated chest tube exchange as above. Mike Hoang MD Chest Tube Insertion 08/20/17 3978 Signed Impressions: Service Date/Time: Sunday, August 20, 2017 16:03 - CONCLUSION: Uncomplicated chest tube placement as above. Mike Hoang MD Abdomen/Pelvis CT 08/19/17 0000 Signed Impressions: Service Date/Time: August 21:18 - CONCLUSION: 1. Small right anterior basilar pneumothorax. 2. Consolidation in the right lower lobe with loculated pleural effusion. 3. Small pericardial effusion. 4. Multiple right rib fractures and small areas of subcutaneous emphysema. 5. There is nonobstructive bowel gas pattern. Louis Quan MD Lower Extremity Ultrasound 08/15/17 0000 Signed Impressions: Service Date/Time: Tuesday, August 15, 2017 15:44 - CONCLUSION: No evidence of deep venous thrombosis. The study was limited by overlying bandages from injury. Louis Quan MD CT Angiography 08/09/17 Signed Impressions: Service Date/Time: Wednesday, August 09, 2017 12:14 - CONCLUSION: 1. New consolidation greatest in the right lower lobe with soft tissue density now noted in the right mainstem bronchus most consistent with mucous plugging. 2. New moderate size right effusion and small left effusion. 3. Multiple right-sided rib fractures again noted with no pneumothorax. 4. No evidence of pulmonary embolism. Louis Quan MD Thoracic Spine CT 08/07/172245 Signed Impressions: Service Date/Time: Monday, August 07, 2017 22:58 - CONCLUSION: No acute fracture or malalignment. Louis Quan MD Pelvis X-Ray 08/07/172245 Signed Impressions: Service Date/Time: Monday, August 07, 2017 22:30 - CONCLUSION: Negative trauma study. Louis Quan MD Maxillofacial CT 08/07/172245 Signed Impressions: Service Date/Time: Monday, August 07, 2017 22:53 - CONCLUSION: Comminuted fracture of the nasal bone. Louis Quan MD Lumbar Spine CT 08/07/172245 Signed Impressions: Service Date/Time: Monday, August 07, 2017 22:58 - CONCLUSION: No acute fracture or malalignment. Louis Quan MD Cervical Spine CT 08/07/172245 Signed Impressions: Service Date/Time: Monday, August 07, 2017 22:53 - CONCLUSION: Negative trauma CT. Louis Quan MD Physical Exam CONSTITUTIONAL/GENERAL: This is an adequately nourished patient, in no apparent distress.OOB in chair TUBES/LINES/DRAINS: SKIN: No jaundice, + faint morbiliform rash extremeties, torso, chest in patchy distribution. Skin temperature appropriate. Not diaphoretic. Also an erythematous rash repeating contours of his adhesive dressing CARDIOVASCULAR: Regular rate and rhythm without murmurs, gallops, or rubs. No JVD. Peripheral pulses symmetric. RESPIRATORY/CHEST: Symmetric, unlabored respirations. Clear to auscultation. Breath sounds markedly diminished R. No wheezes, rales, or rhonchi. GASTROINTESTINAL: Abdomen soft, no tenderness, nondistended. No hepato- splenomegaly, or palpable masses. No guarding. Bowel sounds present. MUSCULOSKELETAL: Extremities without clubbing, cyanosis, or edema. No joint tenderness or effusion noted. No calf tenderness. No mottling or clubbing. R arenas resolving hematoma, no drainage Edema, induration in mulltiple spots or R thigh, likely hematomas - improved dramatically NEUROLOGICAL: Awake and alert. Motor and sensory grossly within normal limits. Follows commands. Clear speech . Moves all extremities. PSYCHIATRIC: No obvious anxiety/depression. no apparent hallucinations or other psychotic thought process. Assessment & Plan Remarks Assessment and Plan Assessment and Plan R pulmonary contusion Multiple R sided rib fractures Pneumothorax RLL consolidation Fever, cough R sided empyema, MRSA Small hematoma of R arenas,- resolving Fever, low grade - improved New issue - pruritic rash; forrest medication induced; vancomycin stopped - on zyvox PLAN: - dc vancomycin - zyvox x 2 weeks; however might require longer course based on clinical and radiological picture - monitor CBC, BMP while on zyvox at least weekly Brianne Bear MD Sep 01, 2017 18:30
--- NOTE | 2017-09-01 19:14 | HHI.PR ---
Subjective Remarks ALERT NO SOB CHEST tube removed LOW GRADE FEVER ON ANTIBX Objective Vital Signs Date Time Temp Pulse Resp B/P (MAP) Pulse Ox O2 Delivery O2 Flow Rate FiO2 09/01/17 16:00 97.6 76 16 108/61 (77) 96 09/01/17 12:00 97.4 74 18 105/56 (72) 97 09/01/17 09:10 96 21 09/01/17 08:00 97.1 65 16 109/63 (78) 95 09/01/17 04:50 97.6 70 18 114/64 (81) 97 09/01/17 00:00 98.2 70 18 114/67 (83) 96 08/31/17 20:18 89 08/31/17 20:00 100.8 87 18 113/60 (77) 95 I/O 08/31/17 08/31/17 08/31/17 09/01/17 09/01/17 09/01/17 07:00 15:00 23:00 07:00 15:00 23:00 Intake Total 500 ml 720 ml 1200 ml Output Total 1150 ml 1300 ml Balance -650 ml 720 ml -1300 ml 1200 ml Intake Oral 720 ml 1200 ml IV Total 500 ml Output Urine Total 1150 ml 1300 ml # Voids 4 6 # Bowel Movements 0 1 Result Diagram: 08/30/1734408/30/17344 Procedures GENERAL: SKIN: Warm and dry. 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 Normocephalic. EYES: Pupils equal and round. No scleral icterus. No injection or drainage. ENT: No nasal bleeding or discharge. Mucous membranes pink and moist. NECK: Trachea midline. No JVD. CARDIOVASCULAR: Regular rate and rhythm. RESPIRATORY: No accessory muscle use. Clear to auscultation. Breath sounds equal bilaterally. GASTROINTESTINAL: Abdomen soft, non-tender, nondistended. Hepatic and splenic margins not palpable. MUSCULOSKELETAL: Extremities without clubbing, cyanosis, or edema. No obvious deformities. NEUROLOGICAL: Awake and alert. No obvious cranial nerve deficits. Motor grossly within normal limits. Five out of 5 muscle strength in the arms and legs. Normal speech. PSYCHIATRIC: Appropriate mood and affect; insight and judgment normal. Objective Remarks GENERAL: SKIN: Warm and dry. 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 Normocephalic. EYES: Pupils equal and round. No scleral icterus. No injection or drainage. ENT: No nasal bleeding or discharge. Mucous membranes pink and moist. NECK: Trachea midline. No JVD. CARDIOVASCULAR: Regular rate and rhythm. RESPIRATORY: No accessory muscle use. decrease breath sounds right base GASTROINTESTINAL: Abdomen soft, non-tender, nondistended. Hepatic and splenic margins not palpable. MUSCULOSKELETAL: Extremities without clubbing, cyanosis, or edema. No obvious deformities. NEUROLOGICAL: Awake and alert. No obvious cranial nerve deficits. Motor grossly within normal limits. Five out of 5 muscle strength in the arms and legs. Normal speech. PSYCHIATRIC: Appropriate mood and affect; insight and judgment normal. Assessment and Plan Assessment and Plan right RIB FX AND HEMOTHORAX CT Iremoved LOW GRADE FEVER PLAN increase activity ANTIBX PER ID Clara Elizabeth MD Sep 01, 2017 19:14
== END 2017-09-01 19:37 | disposition home or self-care (01) | DRG 957 ==
LOC: NEPI 22:33 → EDBD 23:13 → NEDA 23:13 → N03A 23:28 → N06A 08-08 16:27 → N03A 08-09 12:29 → N07A 08-10 20:17 → N03A 08-18 04:42 → N07A 08-27 16:48
PROVIDERS: ADMIT Surgery; ATTEND Surgery
PROC: 0HQ0XZZ Repair Scalp Skin, External Approach (ICD-10-PCS; principal; 2017-08-08)
PROC: 0W9930Z Drainage of Right Pleural Cavity with Drainage Device, Percutaneous Approach (ICD-10-PCS; 2017-08-09)
PROC: 0W9930Z Drainage of Right Pleural Cavity with Drainage Device, Percutaneous Approach (ICD-10-PCS; 2017-08-20)
PROC: 3E0L3GC Introduction of Other Therapeutic Substance into Pleural Cavity, Percutaneous Approach (ICD-10-PCS; 2017-08-24)
PROC: 0W9930Z Drainage of Right Pleural Cavity with Drainage Device, Percutaneous Approach (ICD-10-PCS; 2017-08-25)
PROC: 0BJK4ZZ Inspection of Right Lung, Percutaneous Endoscopic Approach (ICD-10-PCS; 2017-08-27)
PROC: 0W9900Z Drainage of Right Pleural Cavity with Drainage Device, Open Approach (ICD-10-PCS; 2017-08-27)
DX: S27.2XXA Traumatic hemopneumothorax, initial encounter (principal); J96.90 Respiratory failure, unspecified, unspecified whether with hypoxia or hypercapnia; S37.031A Laceration of right kidney, unspecified degree, initial encounter; S36.112A Contusion of liver, initial encounter; J18.9 Pneumonia, unspecified organism; J90 Pleural effusion, not elsewhere classified; N17.9 Acute kidney failure, unspecified; T17.890A Other foreign object in other parts of respiratory tract causing asphyxiation, initial encounter; S27.322A Contusion of lung, bilateral, initial encounter; S22.41XA Multiple fractures of ribs, right side, initial encounter for closed fracture; I48.92 Unspecified atrial flutter; I31.3 Pericardial effusion (noninflammatory); S36.899A Unspecified injury of other intra-abdominal organs, initial encounter; E87.1 Hypo-osmolality and hyponatremia; J93.83 Other pneumothorax; J98.2 Interstitial emphysema; J98.4 Other disorders of lung; S00.83XA Contusion of other part of head, initial encounter; S00.81XA Abrasion of other part of head, initial encounter; S02.2XXA Fracture of nasal bones, initial encounter for closed fracture; S01.01XA Laceration without foreign body of scalp, initial encounter; F17.210 Nicotine dependence, cigarettes, uncomplicated; S20.212A Contusion of left front wall of thorax, initial encounter; S20.211A Contusion of right front wall of thorax, initial encounter; S30.1XXA Contusion of abdominal wall, initial encounter; S30.0XXA Contusion of lower back and pelvis, initial encounter; V22.4XXA Motorcycle driver injured in collision with two- or three-wheeled motor vehicle in traffic accident, initial encounter; Y93.89 Activity, other specified; Y92.488 Other paved roadways as the place of occurrence of the external cause; M62.830 Muscle spasm of back; Y90.6 Blood alcohol level of 120-199 mg/100 ml; I48.0 Paroxysmal atrial fibrillation; S80.811A Abrasion, right lower leg, initial encounter; D72.823 Leukemoid reaction; Z79.899 Other long term (current) drug therapy; G62.9 Polyneuropathy, unspecified; E88.09 Other disorders of plasma-protein metabolism, not elsewhere classified; D64.9 Anemia, unspecified; F10.10 Alcohol abuse, uncomplicated; B95.62 Methicillin resistant Staphylococcus aureus infection as the cause of diseases classified elsewhere; L27.1 Localized skin eruption due to drugs and medicaments taken internally; T36.8X5A Adverse effect of other systemic antibiotics, initial encounter; Y92.239 Unspecified place in hospital as the place of occurrence of the external cause; K44.9 Diaphragmatic hernia without obstruction or gangrene
CPT/HCPCS: 32557; 36430; 36600; 70450; 70486; 71010; 71250; 71260; 71275; 72125; 72128; 72131; 72170; 74176; 74177; 80048; 80053; 80076; 80202; 80307; 82435; 82565; 82805; 82947; 82948; 83735; 84100; 84132; 84295; 84520; 85007; 85014; 85018; 85025; 85027; 85610; 85730; 86403; 86850; 86900; 86901; 86920; 87040; 87070; 87147; 87186; 87205; 87641; 90471; 93005; 93306; 93971; 94150; 94640; 94664; 94667; 94668; 96374; 96375; 99152; 99153; 99291; J1170; C1729; C1769; C9290; G0390; J0131; J0690; J1100; J1160; J1650; J1885; J2060; J2250; J2270; J2370; J2405; J2543; J2710; J2997; J3010; J3370; J7030; J7040; P9016; Q0163; Q9963; Q9967